=== PATIENT | female | born 1940 | race Caucasian/White ===

== ENCOUNTER 2017-09-29 17:42 | Observation (INO) | payer OTHER ==
--- NOTE | 2017-09-29 18:49 | PDOC ---
Rapid Medical Evaluation Time Seen by Provider: 09/29/17 18:46 Medical Evaluation: Allergies Allergy/AdvReac Type Severity Reaction Status Date / Time cephalexin Allergy Severe Difficulty Verified 06/12/16 14:10 Breathing 09/29/17 18:46 I have performed a brief in-person evaluation of this patient. The patient presents with a chief complaint of: sent by PCP, fever, chills, "whole body feels bad", nausea, anorexia since yesterday afternoon, hasn't taken any meds since then, per PCP O2 sat is low , temp 101 at urgent care Pertinent physical exam findings: weak appearing I have ordered the following: sepsis workup The patient will proceed to the ED for further evaluation. Discharge Disposition - Diagnosis Fever - Referrals - Patient Instructions - Post Discharge Activity
[2017-09-29 18:54] VITALS: BMI 25.7
[2017-09-29 22:06] LABS: BASO % 0.3 % (0-2.0); HEMATOCRIT 39.5 % (32.4-45.2); LYMPH % 8.6 % (8-40); MCH 30.8 pg (25.7-33.7); MEAN CELL VOLUME 93.3 fl (80-96); MEAN PLT VOLUME 8.7 fl (7.5-11.1); MONO % 6.2 % (3.8-10.2); NEUT % 84.9 % (42.8-82.8); PLATELET COUNT 189 K/MM3 (134-434); RBC 4.23 M/mm3 (3.60-5.2); RDW 14.6 % (11.6-15.6); WHITE BLOOD COUNT 14.4 K/mm3 (4.0-10.0)
[2017-09-29 22:08] LABS: VENOUS PC02 47.7 mmHg (38-52); VENOUS PH 7.43 (7.32-7.42)
[2017-09-29] MEDS ORDERED: SODIUM CHLORIDE 1,000 ML IV STA (22:35)
--- NOTE | 2017-09-29 22:35 | PDOC ---
History of Present Illness - History of Present Illness Initial Comments: 09/29/17 22:46 The patient is a 77 year old female, with a significant past medical history of liver cirrhosis and hypertension, who presents to the emergency department with subjective fever, chills, rhinorrhea, decreased appetite, and generalized malaise since 5:30 PM yesterday. The patient states she went to her PCP today where she was found to have low oxygen levels and was referred to the ED. She states she has not been able to take her medications since the onset of her symptoms. She denies sick contacts. The patient denies chest pain, shortness of breath, headache and dizziness. The patient denies abdominal pain, nausea, vomit, diarrhea and constipation. The patient denies dysuria, frequency, urgency and hematuria. Allergies: cephalexin Past surgical history: cataract surgery, inguinal hernia repair PCP: <Tonia Camacho - Last Filed: 09/30/17 01:19> - General History Source: Patient, Family (son) <Blanco Zabala - Last Filed: 09/30/17 19:13> - General Chief Complaint: Nausea/Vomiting Stated Complaint: PCP SENT Time Seen by Provider: 09/29/17 18:46 Past History <Tonia Camacho - Last Filed: 09/30/17 01:19> - Past Medical History HTN: Yes - Surgical History Abdominal Surgery: Yes (HERNIA) GI Surgery: Yes (LIVER BIOPSY) - Suicide/Smoking/Psychosocial Hx Smoking History: Never smoked Have you smoked in the past 12 months: No Information on smoking cessation initiated: No Hx Alcohol Use: No Drug/Substance Use Hx: No Hx Substance Use Treatment: No <Blanco Zabala - Last Filed: 09/30/17 19:13> - Past Medical History Allergies/Adverse Reactions: Allergies Allergy/AdvReac Type Severity Reaction Status Date / Time cephalexin Allergy Severe Difficulty Verified 09/29/17 18:47 Breathing Home Medications: Ambulatory Orders Losartan/Hydrochlorothiazide [Losartan-Hctz 100-25 mg Tab] 100 each PO DAILY Metoprolol Tartrate 50 mg PO DAILY 09/30/17 Ursodiol [Actigal] 900 mg PO DAILY 09/30/17 Review of Systems - Review of Systems Able to Perform ROS?: Yes Comments:: 09/29/17 22:46 CONSTITUTIONAL: (+) fever, chills,malaise, loss of appetite Absent: diaphoresis, generalized weakness, HEENT: (+) rhinorrhea, Absent: nasal congestion, throat pain, throat swelling, difficulty swallowing, mouth swelling, ear pain, eye pain, visual Changes CARDIOVASCULAR: Absent: chest pain, syncope, palpitations, irregular heart rate, lightheadedness , peripheral edema RESPIRATORY: Absent: cough, shortness of breath, dyspnea with exertion, orthopnea, wheezing, stridor, hemoptysis GASTROINTESTINAL: Absent: abdominal pain, abdominal distension, nausea, vomiting, diarrhea, constipation, melena, hematochezia GENITOURINARY: Absent: dysuria, frequency, urgency, hesitancy, hematuria, flank pain, genital pain MUSCULOSKELETAL: Absent: myalgia, arthralgia, joint swelling SKIN: Absent: rash, itching, pallor HEMATOLOGIC/IMMUNOLOGIC: Absent: easy bleeding, easy bruising, lymphadenopathy, frequent infections ENDOCRINE: Absent: unexplained weight gain, unexplained weight loss, heat intolerance, cold intolerance NEUROLOGIC: Absent: headache, focal weakness or paresthesias, dizziness, unsteady gait, seizure, mental status changes, bladder or bowel incontinence PSYCHIATRIC: Absent: anxiety, depression, suicidal or homicidal ideation, hallucinations. <Tonia Camacho - Last Filed: 09/30/17 01:19> *Physical Exam - Vital Signs Last Vital Signs Temp Pulse Resp BP Pulse Ox 99.4 F 97 H 22 119/67 93 L 09/29/17 18:49 09/29/17 18:49 09/29/17 18:49 09/29/17 18:49 09/29/17 18:49 - Physical Exam Comments: 09/29/17 22:47 GENERAL: (+) diaphoretic. in moderate distress. Well developed, well nourished. Awake and alert. HEENT: (+) dry oral mucosa. Normocephalic, atraumatic. PERRLA, EOMI. No conjunctival pallor. Sclera are non-icteric. Oropharynx is clear. NECK: Supple. Full ROM. No JVD. Carotid pulses 2+ and symmetric, without bruits. No thyromegaly. No lymphadenopathy. CARDIOVASCULAR: (+) tachycardic rate with normal rhythm. No murmurs, rubs, or gallops. Distal pulses are 2+ and symmetric. PULMONARY: (+) Decreased breath sounds bilaterally especially at bilateral bases. No evidence of respiratory distress. No wheezing, rales or rhonchi. ABDOMINAL: Soft. Non-tender. Non-distended. No rebound or guarding. No organomegaly. Normoactive bowel sounds. MUSCULOSKELETAL Normal range of motion at all joints. No bony deformities or tenderness. No CVA tenderness. EXTREMITIES: No cyanosis. No clubbing. No edema. No calf tenderness. SKIN: Warm and dry. Normal capillary refill. No rashes. No jaundice. NEUROLOGICAL: Alert, awake, appropriate. Cranial nerves 2-12 intact. Normoreflexic in the upper and lower extremities. Normal speech. Toes are down-going bilaterally. Gait is normal without ataxia. PSYCHIATRIC: Cooperative. Good eye contact. Appropriate mood and affect. <Tonia Camacho - Last Filed: 09/30/17 01:19> - Vital Signs Last Vital Signs Temp Pulse Resp BP Pulse Ox 99.4 F 97 H 22 119/67 93 L 09/29/17 18:49 09/29/17 18:49 09/29/17 18:49 09/29/17 18:49 09/29/17 18:49 <Blanco Zabala - Last Filed: 09/30/17 19:13> Heart Score/ECG Review - [place] Comment: 09/30/17 01:19 EKG was read by Dr. Zabala at 00:28 Impression: Sinus tachycardia. Possible left atrial enlargement. Left ventricular hypertrophy Vent. Rate: 117 bpm MT Interval 136 ms QTc: 451 ms <Tonia Camacho - Last Filed: 09/30/17 01:19> ED Treatment Course - LABORATORY CBC & Chemistry Diagram: 09/29/17 21:54 09/29/17 21:54 - ADDITIONAL ORDERS Additional order review: Laboratory Results 09/29/17 09/29/17 21:54 21:54 PT with INR 13.10 H INR 1.16 H PTT (Actin FS) 29.5 VBG pH 7.43 H POC VBG pCO2 47.7 POC VBG pO2 34.0 Mixed VBG HCO3 31.4 H 09/29/17 21:54 RBC 4.23 MCV 93.3 MCHC 33.0 RDW 14.6 MPV 8.7 D Neutrophils % 84.9 H D Lymphocytes % 8.6 D Monocytes % 6.2 Eosinophils % 0.0 D Basophils % 0.3 <Tonia Camacho - Last Filed: 09/30/17 01:19> - LABORATORY CBC & Chemistry Diagram: 09/30/17 07:45 09/30/17 07:45 - ADDITIONAL ORDERS Additional order review: Laboratory Results 09/29/17 21:54 VBG pH 7.43 H POC VBG pCO2 47.7 POC VBG pO2 34.0 Mixed VBG HCO3 31.4 H 09/29/17 21:54 RBC 4.23 MCV 93.3 MCHC 33.0 RDW 14.6 MPV 8.7 D Neutrophils % 84.9 H D Lymphocytes % 8.6 D Monocytes % 6.2 Eosinophils % 0.0 D Basophils % 0.3 <Blanco Zabala - Last Filed: 09/30/17 19:13> Medical Decision Making - Medical Decision Making 09/30/17 19:12 Dr. Zabala: The scribe's documentation has been prepared under my direction and personally reviewed by me in its entirery. I confirm that the note above accurately reflects all work, treatment, procedures, and medical decision making performed by me. Pt treated for UIT and dehydration. Given Abx and awaiting bed <Blanco Zabala - Last Filed: 09/30/17 19:13> *DC/Admit/Observation/Transfer - Attestations Scribe Attestion: 09/29/17 22:49 Documentation prepared by Tonia Camacho, acting as biomedical manager for Blanco Zabala DO. <Tonia Camacho - Last Filed: 09/30/17 01:19> - Discharge Dispostion Admit: Yes <Blanco Zabala - Last Filed: 09/30/17 19:13> Diagnosis at time of Disposition: Fever, UTI (urinary tract infection), Influenza, Dehydration - Discharge Dispostion Condition at time of disposition: Stable
[2017-09-29] MEDS ORDERED: OSELTAMIVIR PHOSPHATE 75 MG CAPSULE PO ONE (22:36)
[2017-09-29 22:39] LABS: INR 1.16 (0.82-1.09); PROTHROMBIN TIME (PATIENT) 13.1 SEC (9.98-11.88)
[2017-09-29 22:41] LABS: ALBUMIN 3.1 g/dl (3.4-5.0); ANION GAP 8 (8-16); BILIRUBIN,TOTAL 0.7 mg/dL (0.2-1.0); BLOOD UREA NITROGEN 33 mg/dL (7-18); CALCIUM 8.8 mg/dL (8.5-10.1); CHLORIDE 92 mmol/L (98-107); CO2 32 mmol/L (21-32); CREATININE 0.9 mg/dL (0.55-1.02); GLUCOSE,RANDOM 107 mg/dL (74-106); POTASSIUM 3.1 mmol/L (3.5-5.1); SGOT/AST 19 U/L (15-37); SGPT/ALT 17 U/L (12-78); SODIUM 132 mmol/L (136-145); TOT PROT 7.5 g/dl (6.4-8.2)
[2017-09-29 22:42] LABS: ACTIVATED PTT 29.5 SECONDS (26.9-34.4)
[2017-09-29 22:44] LABS: ALK PHOS 100 U/L (45-117)
[2017-09-29] MEDS ORDERED: OSELTAMIVIR PHOSPHATE 75 MG CAPSULE ONE (23:21)
[2017-09-30] MEDS ORDERED: POTASSIUM CHLORIDE TABS 20 MEQ TABLET.ER (FP) PO ONE ×2 (00:26→00:33)
[2017-09-30] MEDS ORDERED: SODIUM CHLORIDE 1,000 ML IV STA (00:26)
[2017-09-30] MEDS ORDERED: URSODIOL 300 MG CAPSULE PO ONE (00:35)
[2017-09-30] MEDS ORDERED: ACETAMINOPHEN 1000 MG/100 ML VIAL (NON FORMULARY) IVPB ONE (03:46)
[2017-09-30] MEDS ORDERED: ACETAMINOPHEN INJECTION 100 ML IVPB ONE (03:47)
[2017-09-30 04:25] LABS: URINE APPEARANCE CLOUDY; URINE BILIRUBIN NEGATIVE (NEGATIVE); URINE BLOOD 2+ (NEGATIVE); URINE COLOR YELLOW; URINE GLUCOSE (UA) NEGATIVE (NEGATIVE); URINE KETONE 1+ (NEGATIVE); URINE NITRITE NEGATIVE (NEGATIVE); URINE UROBILINOGEN NEGATIVE mg/dL (0.2-1.0)
[2017-09-30 04:32] LABS: URINE LEUK ESTERASE 3+ (NEGATIVE); URINE PROTEIN 1+ (NEGATIVE)
[2017-09-30 04:36] LABS: EPI CELLS MODERATE /HPF (FEW); URINE BACTERIA FEW /hpf (NONE SEEN); URINE MUCUS RARE
--- NOTE | 2017-09-30 05:17 | HP ---
CHIEF COMPLAINT: fever, malaise PCP: Gisella HISTORY OF PRESENT ILLNESS: This is a 77 year old female with past medical history of osteoporosis, primary biliary cirrhosis, chronic leg ulcers presented to the ED with a complaint of fever, chills, rhinorrhea, decreased appetite, nausea and general malaise since Wednesday afternoon. She denies SOB, cough, chest pain. son reports pt's pulse ox was low in PMD office ER course was notable for: (1) WBC 14.4; lactic acid 1, repeat 2 (2) Potassium 3.1 (3) Sodium 132 Recent Travel: pt denies PAST MEDICAL HISTORY: osteoporosis, primary biliary cirrhosis, chronic leg ulcers PAST SURGICAL HISTORY: B/L cataract B/L inguinal hernia repair Social History: Smoking: pt denies Alcohol: pt denies Drugs: pt denies Family History: unknown Allergies cephalexin Allergy (Severe, Verified 09/29/17 18:47) Difficulty Breathing HOME MEDICATIONS: 3 Medication Instructions Recorded Losartan/Hydrochlorothiazide 100 each PO DAILY 09/30/17 [Losartan-Hctz 100-25 mg Tab] Metoprolol Tartrate 50 mg PO DAILY 09/30/17 Ursodiol [Actigal] 900 mg PO DAILY 09/30/17 REVIEW OF SYSTEMS CONSTITUTIONAL: Present: fever, chills, generalized weakness, malaise, loss of appetite Absent: diaphoresis, weight change HEENT: Present: rhinorrhea Absent: nasal congestion, throat pain, throat swelling, difficulty swallowing, mouth swelling, ear pain, eye pain, visual changes CARDIOVASCULAR: Absent: chest pain, syncope, palpitations, irregular heart rate, lightheadedness , peripheral edema RESPIRATORY: Absent: cough, shortness of breath, dyspnea with exertion, orthopnea, wheezing, stridor, hemoptysis GASTROINTESTINAL: Absent: abdominal pain, abdominal distension, nausea, vomiting, diarrhea, constipation, melena, hematochezia GENITOURINARY: Absent: dysuria, frequency, urgency, hesitancy, hematuria, flank pain, genital pain MUSCULOSKELETAL: Absent: myalgia, arthralgia, joint swelling, back pain, neck pain SKIN: Absent: rash, itching, pallor HEMATOLOGIC/IMMUNOLOGIC: Absent: easy bleeding, easy bruising, lymphadenopathy, frequent infections ENDOCRINE: Absent: unexplained weight gain, unexplained weight loss, heat intolerance, cold intolerance NEUROLOGIC: Absent: headache, focal weakness or paresthesias, dizziness, unsteady gait, seizure, mental status changes, bladder or bowel incontinence PSYCHIATRIC: Absent: anxiety, depression, suicidal or homicidal ideation, hallucinations. PHYSICAL EXAMINATION Vital Signs - 24 hr 3 09/29/17 09/30/17 18:49 03:42 Temperature 99.4 F 103.2 F H Pulse Rate 97 H Respiratory 22 Rate Blood Pressure 119/67 O2 Sat by Pulse 93 L Oximetry (%) GENERAL: Awake, alert, and fully oriented, in no acute distress. HEAD: Normal with no signs of trauma. EYES: Pupils equal, round and reactive to light, extraocular movements intact, sclera anicteric, conjunctiva clear. No lid lag. EARS, NOSE, THROAT: Ears normal, nares patent, oropharynx clear without exudates. Moist mucous membranes. NECK: Normal range of motion, supple without lymphadenopathy, JVD, or masses. LUNGS: Breath sounds equal, coarse breath sounds bilaterally. No wheezes, and no crackles. No accessory muscle use. HEART: Regular rate and rhythm, normal S1 and S2 without murmur, rub or gallop. ABDOMEN: Soft, nontender, not distended, normoactive bowel sounds, no guarding, no rebound, no masses. No hepatomegaly or splenomegaly. MUSCULOSKELETAL: Normal range of motion at all joints. No bony deformities or tenderness. No CVA tenderness. UPPER EXTREMITIES: 2+ pulses, warm, well-perfused. No cyanosis. No clubbing. No peripheral edema. LOWER EXTREMITIES: 2+ pulses, warm, well-perfused. No calf tenderness. Tr peripheral edema RLL, + erythema and chronic vascular changes, no excessive warmth NEUROLOGICAL: Cranial nerves II-XII intact. Normal speech. Normal gait. PSYCHIATRIC: Cooperative. Good eye contact. Appropriate mood and affect. SKIN: Warm, dry, normal turgor, no rashes or lesions noted, normal capillary refill. wound LL west, red scaly skin with scattered open areas, no discharge, Laboratory Results - last 24 hr 3 09/29/17 09/29/17 09/29/17 21:46 21:54 21:54 WBC 14.4 H D RBC 4.23 Hgb 13.0 D Hct 39.5 D MCV 93.3 MCH 30.8 MCHC 33.0 RDW 14.6 Plt Count 189 MPV 8.7 D Neutrophils % 84.9 H D Lymphocytes % 8.6 D Monocytes % 6.2 Eosinophils % 0.0 D Basophils % 0.3 PT with INR 13.10 H INR 1.16 H PTT (Actin FS) 29.5 VBG pH POC VBG pCO2 POC VBG pO2 Mixed VBG HCO3 Sodium Potassium Chloride Carbon Dioxide Anion Gap BUN Creatinine Creat Clearance w eGFR Random Glucose Lactic Acid 1.0 Calcium Total Bilirubin AST ALT Alkaline Phosphatase Creatine Kinase Troponin I Total Protein Albumin Urine Color Urine Appearance Urine pH Ur Specific [place] Urine Protein Urine Glucose (UA) Urine Ketones Urine Blood Urine Nitrite Urine Bilirubin Urine Urobilinogen Ur Leukocyte Esterase Urine WBC (Auto) Urine RBC (Auto) Ur Epithelial Cells Urine Bacteria Urine Mucus Blood Type Antibody Screen 3 09/29/17 09/29/17 09/29/17 21:54 21:54 21:54 WBC RBC Hgb Hct MCV MCH MCHC RDW Plt Count MPV Neutrophils % Lymphocytes % Monocytes % Eosinophils % Basophils % PT with INR INR PTT (Actin FS) VBG pH 7.43 H POC VBG pCO2 47.7 POC VBG pO2 34.0 Mixed VBG HCO3 31.4 H Sodium 132 L Potassium 3.1 L Chloride 92 L Carbon Dioxide 32 Anion Gap 8 BUN 33 H Creatinine 0.9 Creat Clearance w eGFR > 60 Random Glucose 107 H Lactic Acid 2.0 Calcium 8.8 Total Bilirubin 0.7 D AST 19 ALT 17 Alkaline Phosphatase 100 Creatine Kinase 54 Troponin I < 0.02 Total Protein 7.5 Albumin 3.1 L Urine Color Urine Appearance Urine pH Ur Specific [place] Urine Protein Urine Glucose (UA) Urine Ketones Urine Blood Urine Nitrite Urine Bilirubin Urine Urobilinogen Ur Leukocyte Esterase Urine WBC (Auto) Urine RBC (Auto) Ur Epithelial Cells Urine Bacteria Urine Mucus Blood Type O POSITIVE Antibody Screen Negative 3 Urine Color Yellow 09/30/17 04:00 Urine Appearance Cloudy 09/30/17 04:00 Urine pH 6.0 (5.0-8.0) 09/30/17 04:00 Ur Specific [place] 1.018 (1.001-1.035) 09/30/17 04:00 Urine Protein 1+ (NEGATIVE) H 09/30/17 04:00 Urine Glucose (UA) Negative (NEGATIVE) 09/30/17 04:00 Urine Ketones 1+ (NEGATIVE) H 09/30/17 04:00 Urine Blood 2+ (NEGATIVE) H 09/30/17 04:00 Urine Nitrite Negative (NEGATIVE) 09/30/17 04:00 Urine Bilirubin Negative (NEGATIVE) 09/30/17 04:00 Ur Leukocyte Esterase 3+ (NEGATIVE) H 09/30/17 04:00 Urine WBC (Auto) 162 09/30/17 04:00 Urine RBC (Auto) 23 09/30/17 04:00 Ur Epithelial Cells Moderate /HPF (FEW) 09/30/17 04:00 Urine Bacteria Few /hpf (NONE SEEN) 09/30/17 04:00 Urine Mucus Rare 09/30/17 04:00 Radiology reports CXR official read pending but no obvious findings ECG sinus tachycardia vent rate 117, QTC 451 possible left atrial enlargement LVH ASSESSMENT/PLAN: 77yF with PMH osteoporosis, primary biliary cirrhosis, chronic leg ulcers presented to the ED with fever, chills, malaise. Sepsis secondary to UTI - as evidenced by fever 103.2, HR 117, ua c/w UTI - cont levaquin daily given cephalosporin allergy - NS @ 100cc/hr, monitor volume status, pt has h/o edema B/L LE - labs in am hypokalemia - repleted with 40mEq po - repeat K with am labs today, check mag chronic wound LLE - DPD for now, son unsure of cream used on wound, will need to f/u with wound care. primary biliary cirrhosis - cont ursodiol HTN - cont home meds DVT PPX - heparin 5000u BID FEN - NS @ 100cc/hr - BMP this am - low sodium diet as tolerated Dispo: Pt currently requires inpatient management of her emergent medical condition. Visit type - Emergency Visit Emergency Visit: Yes ED Registration Date: 09/29/17 Care time: The patient presented to the Emergency Department on the above date and was hospitalized for further evaluation of their emergent condition. - New Patient This patient is new to me today: Yes Date on this admission: 09/30/17 - Critical Care Critical Care patient: No
[2017-09-30] MEDS: SODIUM CHLORIDE 1,000 ML IV SCH ×2 (05:37→16:45)
[2017-09-30 08:28] LABS: HEMATOCRIT 37.6 % (32.4-45.2); HEMOGLOBIN 12.2 GM/dL (10.7-15.3); MCH 30.3 pg (25.7-33.7); MCHC 32.4 g/dl (32.0-36.0); MEAN CELL VOLUME 93.4 fl (80-96); MEAN PLT VOLUME 8.8 fl (7.5-11.1); PLATELET COUNT 162 K/MM3 (134-434); RBC 4.03 M/mm3 (3.60-5.2); RDW 14.4 % (11.6-15.6); WHITE BLOOD COUNT 16.7 K/mm3 (4.0-10.0)
[2017-09-30 08:48] LABS: CHLORIDE 100 mmol/L (98-107); POTASSIUM 3.3 mmol/L (3.5-5.1); SODIUM 135 mmol/L (136-145)
[2017-09-30 08:52] LABS: ANION GAP 9 (8-16); BLOOD UREA NITROGEN 26 mg/dL (7-18); CALCIUM 7.7 mg/dL (8.5-10.1); CO2 26 mmol/L (21-32); CREATININE 0.8 mg/dL (0.55-1.02); GLUCOSE,RANDOM 115 mg/dL (74-106); MAGNESIUM 1.5 mg/dL (1.8-2.4); PHOSPHOROUS 2.8 mg/dL (2.5-4.9)
[2017-09-30 11:24] LABS: ANISOCYTOSIS 0; MACROCYTOSIS 1+
[2017-09-30 11:32] LABS: PLATELET ESTIMATE ADEQUATE
--- NOTE | 2017-09-30 11:48 | EKG ---
Test Reason : Blood Pressure : / mmHG Vent. Rate : 117 BPM Atrial Rate : 117 BPM P-R Int : 136 ms QRS Dur : 074 ms QT Int : 324 ms P-R-T Axes : 041 -10 024 degrees QTc Int : 451 ms POOR DATA QUALITY, INTERPRETATION MAY BE ADVERSELY AFFECTED SINUS TACHYCARDIA POSSIBLE LEFT ATRIAL ENLARGEMENT LEFT VENTRICULAR HYPERTROPHY ABNORMAL ECG WHEN COMPARED WITH ECG OF 24-MAY-2016 09:53, NO SIGNIFICANT CHANGE WAS FOUND Confirmed by MARVA FIGUEROA, MANA ([id number]) on 09/30/2017 11:48:16 AM Referred By: Confirmed By:MANA DURHAM MD
[2017-09-30] MEDS: HEPARIN NA (PORCINE) 5,000 UNITS/ML 1ML VIAL SQ SCH ×2 (12:01→23:10)
[2017-09-30] MEDS ORDERED: ACETAMINOPHEN 325 MG TABLET (FP) PO PRN (19:08)
[2017-09-30] MEDS ORDERED: ACETAMINOPHEN 325 MG TABLET (FP) ONE (19:21)
[2017-09-30] MEDS ORDERED: HEPARIN NA (PORCINE) 5,000 UNITS/ML 1ML VIAL ONE (22:50)
[2017-10-01] MEDS ORDERED: POTASSIUM CHLORIDE TABS 20 MEQ TABLET.ER (FP) PO ONE (01:20)
[2017-10-01 01:55] VITALS: BP 121/75; PULSE 93; TEMP 98.1
--- NOTE | 2017-10-01 06:45 | HOSP ---
Subjective - Review of Symptoms Subjective: Notified by RN that pt wanted to sign out AMA. Counseled on risks and benefits of staying. risks included worsening infection that can lead to organ shut down and . pt accompanied by son, both verbalized understanding of risks and desire to sign out AMA. encouraged pt to call PMD office and follow up. Physical Examination Vital Signs: Vital Signs Temperature 98.1 F 10/01/17 01:52 Pulse Rate 93 H 10/01/17 01:52 Respiratory Rate 18 10/01/17 01:52 Blood Pressure 121/75 10/01/17 01:52 O2 Sat by Pulse Oximetry (%) 98 10/01/17 01:52 Labs: CBC, BMP 09/30/17 07:45 09/30/17 07:45
== END 2017-10-01 01:00 | disposition left against medical advice (07) ==
LOC: JER 17:42 → JERBED 09-30 04:46 → UNDOADMOB 09-30 06:02 → JERBED 09-30 06:02
PROVIDERS: ADMIT Internal Medicine; ATTEND Internal Medicine
PROC: 3E03329 Introduction of Other Anti-infective into Peripheral Vein, Percutaneous Approach (ICD-10-PCS; principal; 2017-09-30)
PROC: 3E033GC Introduction of Other Therapeutic Substance into Peripheral Vein, Percutaneous Approach (ICD-10-PCS; 2017-09-30)
PROC: 3E0337Z Introduction of Electrolytic and Water Balance Substance into Peripheral Vein, Percutaneous Approach (ICD-10-PCS; 2017-09-30)
PROC: 3E013GC Introduction of Other Therapeutic Substance into Subcutaneous Tissue, Percutaneous Approach (ICD-10-PCS; 2017-09-30)
DX: J11.1 Influenza due to unidentified influenza virus with other respiratory manifestations (principal); N39.0 Urinary tract infection, site not specified; E86.0 Dehydration; I10 Essential (primary) hypertension; M81.0 Age-related osteoporosis without current pathological fracture; K74.60 Unspecified cirrhosis of liver; Z88.1 Allergy status to other antibiotic agents; L97.909 Non-pressure chronic ulcer of unspecified part of unspecified lower leg with unspecified severity; A41.9 Sepsis, unspecified organism; E87.6 Hypokalemia
CPT/HCPCS: 36415; 71045-TC-FY; 80048; 80053; 81003; 81015; 82550; 82803; 83605; 83735; 84100; 84484; 85025; 85610; 85730; 86850; 86900; 86901; 87040; 87086; 87186; 93005; 93010; 96361; 96365; 96372; 96374; 99285-25; G0378; J1644

== ENCOUNTER 2017-11-07 16:24 | Inpatient (IN) | payer OTHER ==
[2017-11-07] MEDS ORDERED: SODIUM CHLORIDE 1,000 ML IV STA (16:31)
[2017-11-07] MEDS ORDERED: ACETAMINOPHEN 1000 MG/100 ML VIAL (NON FORMULARY) IVPB ONE (16:31)
--- NOTE | 2017-11-07 16:31 | PDOC ---
History of Present Illness - General Chief Complaint: SIRS, Suspected/Possible Stated Complaint: FEVER, VOMITING Time Seen by Provider: 11/07/17 16:27 - History of Present Illness Initial Comments: 11/07/17 16:54 The patient is a 77 year old female with a history of HTN, HLD who presents for evaluation of vomiting, fevers, and lower extremity ulcers. The patient is accompanied by family who assist in providing the history. They note that the patient has been feeling "under the weather" for the last few days prompting her presentation to an urgent care earlier today. She was noted to be febrile and was sent to the ED for concerns for sepsis. The patient had a recent admission 1 month ago for UTI but left AMA after treatment. She also notes bilateral lower extremity ulcers for which she was initially being evaluated in wound care, but has not followed up recently and they have noted worsening in the lower extremity wounds over the past few days. They endorse fevers and chills today as well as 2 episodes of non-bilious, non-bloody vomiting. She otherwise denies SOB, cough, chest pain, abdominal pain, or changes with urination or bowel movements. Past History - Past Medical History Allergies/Adverse Reactions: Allergies Allergy/AdvReac Type Severity Reaction Status Date / Time cephalexin Allergy Severe Difficulty Verified 11/07/17 16:26 Breathing Home Medications: Ambulatory Orders Losartan/Hydrochlorothiazide [Losartan-Hctz 100-25 mg Tab] 100 each PO DAILY Metoprolol Tartrate 50 mg PO DAILY 09/30/17 Ursodiol [Actigal] 900 mg PO DAILY 09/30/17 COPD: No HTN: Yes - Surgical History Abdominal Surgery: Yes (HERNIA) GI Surgery: Yes (LIVER BIOPSY) - Immunization History Immunization Up to Date: Yes - Suicide/Smoking/Psychosocial Hx Smoking History: Never smoked Have you smoked in the past 12 months: No Information on smoking cessation initiated: No Hx Alcohol Use: No Drug/Substance Use Hx: No Substance Use Type: None Hx Substance Use Treatment: No Review of Systems - Review of Systems Comments:: 11/07/17 16:59 Constitutional: Fevers, Chills. No fatigue, malaise HEENT: No Rhinorrhea, nasal congestion, visual changes Cardiovascular: No chest pain, syncope, palpitations, lightheadedness Respiratory: No Cough, SOB, Hemoptysis, Gastrointestinal: Nausea, Vomiting. No Abdominal pain, Constipation, Diarrhea, Melena Genitourinary: No Dysuria, Frequency, Urgency, Hesitancy, Hematuria, Flank pain Musculoskeletal: No Myalgia, arthralgia Skin: Lower Extremity Ulcers. No rashes, itching, bruising, pallor Neurologic: No Headache, Dizziness, Numbness, Weakness, or Tingling Psychiatric: No Hallucinations. No SI or HI *Physical Exam - Vital Signs Last Vital Signs Temp Pulse Resp BP Pulse Ox 102.5 F H 116 H 20 148/77 92 L 11/07/17 16:27 11/07/17 16:27 11/07/17 16:27 11/07/17 16:27 11/07/17 16:27 - Physical Exam Comments: 11/07/17 16:59 General Appearance: Nourished. No Apparent Distress HEENT: EOMI, YOLANDA. No Pharyngeal Erythema, Tonsillar Exudate, Tonsillar Erythema Neck: No Cervical Lymphadenopathy Respiratory/Chest: Lungs Clear, Normal Breath Sounds. No Crackles, Rales, Rhonchi, Wheezing Cardiovascular: Regular Rhythm, Tachycardic Rate. No Murmur, Gallops, Rubs Gastrointestinal/Abdominal: Normal Bowel Sounds, Soft. No Guarding, Rebound, Tenderness Musculoskeletal: No CVA Tenderness Extremity: Bilateral lower extremity ulcers worse on the left with surrounding erythema and warmth. Normal Capillary Refill Integumentary: Normal Color, Dry, Warm Neurologic: Fully Oriented, Alert, Normal Mood/Affect, Normal Response, ED Treatment Course - LABORATORY CBC & Chemistry Diagram: 11/07/17 16:43 11/07/17 17:30 - RADIOLOGY Radiology Studies Ordered: Category Date Time Status CHEST X-RAY PORTABLE* [RAD] Stat Radiology 11/07/17 16:30 Ordered Medical Decision Making - Medical Decision Making 11/07/17 17:01 The patient is a 77 year old female with a history of HTN, HLD who presents for evaluation of vomiting, fevers, and lower extremity ulcers. Differential includes but is not limited to: Sepsis, Cellulitis, UTI, Pneumonia, infectious, metabolic derangement. Given the patient's history and physical exam, we will obtain a cbc, cmp, lactate, vbg, blood cultures, ua, urine cultures, troponin, ekg, chest plain film to evaluate further for possible etiologies. We will treat with iv fluids, iv tylenol, vanc, and zosyn in the meantime. The patient will likely require admission for further management of her condition. We will continue to monitor and reassess. 11/07/17 21:03 CBC demonstrates an elevated wbc to 22. CMP, troponin, lactate are unremarkable. The patient symptoms are likely due to a cellulitis of the patient's left lower extremity and sepsis. We discussed the case with the hospitalist team who accepted the patient for admission. *DC/Admit/Observation/Transfer Diagnosis at time of Disposition: Sepsis Qualifiers: Sepsis type: sepsis due to unspecified organism Qualified Code(s): A41.9 - Sepsis, unspecified organism Cellulitis Qualifiers: Site of cellulitis: extremity Site of cellulitis of extremity: lower extremity Laterality: left Qualified Code(s): L03.116 - Cellulitis of left lower limb - Discharge Dispostion Condition at time of disposition: Stable Admit: Yes - Referrals - Patient Instructions - Post Discharge Activity
[2017-11-07] MEDS ORDERED: ACETAMINOPHEN INJECTION 100 ML IVPB ONE (16:40)
[2017-11-07] MEDS ORDERED: VANCOMYCIN 1,250 MG in DEXTROSE 5%-WATER - 250 ML IVPB ONE (16:49)
[2017-11-07] MEDS ORDERED: PIPERACILLIN/TAZOB 3.375 GM 50 ML IVPB ONE (16:49)
--- NOTE | 2017-11-07 16:49 | PDOC ---
Attending Attestation - Resident Resident Name: Gabriel Chaudhry - ED Attending Attestation I have performed the following: I have examined & evaluated the patient, The case was reviewed & discussed with the resident, I agree w/resident's findings & plan, Exceptions are as noted - HPI HPI: 11/07/17 16:48 77 yo female p/w fever and b/l LE ulcers and erythema, concern for cellulitis and/or urosepsis - Physicial Exam PE: 11/07/17 21:03 77 yo female p/w fever and wounds on her legs with erythema head -ncat neck -supple throat -no erythema lungs -cta b.l cvs- [id number] abd -protuberant ,no guarding,no rebound extremities right toes were and left west have + cellulitis neuro alert and conversant skin dry mucus memebranes psych appropriate - Medical Decision Making 11/07/17 16:49 77 yo female with history of PVD p/w fever and has cellulitis of her toes and west,admitted for ABX 11/07/17 21:08
[2017-11-07 16:57] LABS: HEMATOCRIT 39.4 % (32.4-45.2); HEMOGLOBIN 13.2 GM/dL (10.7-15.3); MCH 31.5 pg (25.7-33.7); MCHC 33.6 g/dl (32.0-36.0); MEAN CELL VOLUME 93.7 fl (80-96); MEAN PLT VOLUME 8.9 fl (7.5-11.1); PLATELET COUNT 230 K/MM3 (134-434); RDW 14.9 % (11.6-15.6); WHITE BLOOD COUNT 22.6 K/mm3 (4.0-10.0)
[2017-11-07] MEDS ORDERED: PIPERACILLIN/TAZOB 3.375 GM 3.375 GM/50 ML BAG IVPB ONE (17:09)
[2017-11-07 17:12] LABS: INR 1.03 (0.82-1.09); PROTHROMBIN TIME (PATIENT) 11.6 SEC (9.98-11.88)
[2017-11-07 17:15] LABS: ACTIVATED PTT 22.5 SECONDS (26.9-34.4)
[2017-11-07 18:01] LABS: ALBUMIN 2.8 g/dl (3.4-5.0); ANION GAP 12 (8-16); BILIRUBIN,TOTAL 0.7 mg/dL (0.2-1.0); BLOOD UREA NITROGEN 24 mg/dL (7-18); CALCIUM 8.2 mg/dL (8.5-10.1); CHLORIDE 98 mmol/L (98-107); CO2 26 mmol/L (21-32); CREATININE 0.8 mg/dL (0.55-1.02); GLUCOSE,RANDOM 124 mg/dL (74-106); SGPT/ALT 26 U/L (12-78); SODIUM 136 mmol/L (136-145); TOT PROT 7.1 g/dl (6.4-8.2)
[2017-11-07 18:02] LABS: ALK PHOS 89 U/L (45-117)
[2017-11-07 18:03] LABS: POTASSIUM 3.7 mmol/L (3.5-5.1); SGOT/AST 46 U/L (15-37)
[2017-11-07 18:09] LABS: PLATELET ESTIMATE ADEQUATE
[2017-11-07 18:46] LABS: VENOUS PH 7.44 (7.32-7.42)
[2017-11-07 19:24] LABS: URINE APPEARANCE CLOUDY; URINE BILIRUBIN NEGATIVE (<2.0 mg/dL); URINE BLOOD 2+ (NEGATIVE); URINE COLOR YELLOW; URINE GLUCOSE (UA) NEGATIVE (NEGATIVE); URINE KETONE NEGATIVE (NEGATIVE); URINE NITRITE NEGATIVE (NEGATIVE); URINE PROTEIN NEGATIVE (NEGATIVE); URINE UROBILINOGEN NEGATIVE mg/dL (0.2-1.0)
[2017-11-07 19:25] LABS: URINE LEUK ESTERASE 2+ (NEGATIVE)
[2017-11-07 19:42] LABS: EPI CELLS MANY /HPF (FEW); URINE MUCUS RARE
[2017-11-07] MEDS ORDERED: SODIUM CHLORIDE 1,000 ML IV SCH (20:15)
--- NOTE | 2017-11-07 20:37 | HP ---
CHIEF COMPLAINT: fever PCP: Gisella HISTORY OF PRESENT ILLNESS: This is a 77 year old female with a significant history of chronic leg wounds who presented to the ED with a complaint of fever today, general malaise for the past few days, vomited x 2 today. She went to urgent care who referred her to the ED to r/o sepsis. Upon exam, pt reports feeling better after IV fluids and antibiotics. Son reports that her right foot has redness which is new since yesterday and there seems to be more redness surrounding her chronic wound on her left leg. ER course was notable for: (1) WBC 22.6 (2) BUN 24, Cr 0.8 Recent Travel: pt denies PAST MEDICAL HISTORY: Osteoporosis, primary biliary cirrhosis, chronic leg ulcers, HTN PAST SURGICAL HISTORY: cataract inguinal hernia repair Social History: Smoking: pt denies Alcohol: pt denies Drugs: pt denies Family History: mother age 86, bone CA father, unk, siblings, unk Allergies cephalexin Allergy (Severe, Verified 11/07/17 16:26) Difficulty Breathing HOME MEDICATIONS: 3 Medication Instructions Recorded Losartan/Hydrochlorothiazide 100 each PO DAILY 09/30/17 [Losartan-Hctz 100-25 mg Tab] Metoprolol Tartrate 50 mg PO DAILY 09/30/17 Ursodiol [Actigal] 900 mg PO DAILY 09/30/17 REVIEW OF SYSTEMS CONSTITUTIONAL: Present: fever, malaise Absent: chills, diaphoresis, generalized weakness, loss of appetite, weight change HEENT: Absent: rhinorrhea, nasal congestion, throat pain, throat swelling, difficulty swallowing, mouth swelling, ear pain, eye pain, visual changes CARDIOVASCULAR: Absent: chest pain, syncope, palpitations, irregular heart rate, lightheadedness , peripheral edema RESPIRATORY: Absent: cough, shortness of breath, dyspnea with exertion, orthopnea, wheezing, stridor, hemoptysis GASTROINTESTINAL: Absent: abdominal pain, abdominal distension, nausea, vomiting, diarrhea, constipation, melena, hematochezia GENITOURINARY: Absent: dysuria, frequency, urgency, hesitancy, hematuria, flank pain, genital pain MUSCULOSKELETAL: Absent: myalgia, arthralgia, joint swelling, back pain, neck pain SKIN: Absent: rash, itching, pallor HEMATOLOGIC/IMMUNOLOGIC: Absent: easy bleeding, easy bruising, lymphadenopathy, frequent infections ENDOCRINE: Absent: unexplained weight gain, unexplained weight loss, heat intolerance, cold intolerance NEUROLOGIC: Absent: headache, focal weakness or paresthesias, dizziness, unsteady gait, seizure, mental status changes, bladder or bowel incontinence PSYCHIATRIC: Absent: anxiety, depression, suicidal or homicidal ideation, hallucinations. PHYSICAL EXAMINATION Vital Signs - 24 hr 3 11/07/17 11/07/17 11/07/17 16:27 17:30 21:12 Temperature 102.5 F H 99 F Pulse Rate 116 H 117 H Pulse Rate [ 90 Apical] Respiratory 20 26 H 27 H Rate Blood Pressure 148/77 132/87 Blood Pressure 108/52 [Right Arm] O2 Sat by Pulse 92 L 93 L 98 Oximetry (%) GENERAL: Awake, alert, and fully oriented, in no acute distress. HEAD: Normal with no signs of trauma. EYES: Pupils equal, round and reactive to light, extraocular movements intact, sclera anicteric, conjunctiva clear. No lid lag. EARS, NOSE, THROAT: Ears normal, nares patent, oropharynx clear without exudates. Moist mucous membranes. NECK: Normal range of motion, supple without lymphadenopathy, JVD, or masses. LUNGS: Breath sounds equal, clear to auscultation bilaterally. No wheezes, + crackles bilat bases. No accessory muscle use. HEART: Regular rate and rhythm, normal S1 and S2 without murmur, rub or gallop. ABDOMEN: Soft, nontender, not distended, normoactive bowel sounds, no guarding, no rebound, no masses. No hepatomegaly or splenomegaly. MUSCULOSKELETAL: Normal range of motion at all joints. No bony deformities or tenderness. No CVA tenderness. UPPER EXTREMITIES: 2+ pulses, warm, well-perfused. No cyanosis. No clubbing. No peripheral edema. LOWER EXTREMITIES: 2+ pulses, warm, well-perfused. No calf tenderness. tr peripheral edema right. left lower leg with multiple scabs covering ulcerations to anterior west, surround skin with erythema, R and L foot with erythema especially overlying metatarsals and MIP joints, left lower leg with erythema to lower half with warmth. NEUROLOGICAL: Cranial nerves II-XII intact. Normal speech. Normal gait. PSYCHIATRIC: Cooperative. Good eye contact. Appropriate mood and affect. SKIN: Warm, dry, normal turgor, no rashes or lesions noted, normal capillary refill. Laboratory Results - last 24 hr 3 11/07/17 11/07/17 11/07/17 16:43 16:43 16:43 WBC 22.6 H D RBC 4.20 Hgb 13.2 Hct 39.4 MCV 93.7 MCH 31.5 MCHC 33.6 RDW 14.9 Plt Count 230 D MPV 8.9 Neutrophils % No Result Required. Neutrophils % (Manual) 84.0 H Band Neutrophils % 4.0 Lymphocytes % No Result Required. Lymphocytes % (Manual) 5.0 L Monocytes % (Manual) 3 L Platelet Estimate Adequate Platelet Comment No clumping noted PT with INR 11.60 INR 1.03 PTT (Actin FS) 22.5 L VBG pH POC VBG pCO2 POC VBG pO2 Mixed VBG HCO3 Sodium Cancelled Potassium Cancelled Chloride Cancelled Carbon Dioxide Cancelled Anion Gap Cancelled BUN Cancelled Creatinine Cancelled Creat Clearance w eGFR Cancelled Random Glucose Cancelled Lactic Acid Calcium Cancelled Total Bilirubin Cancelled AST Cancelled ALT Cancelled Alkaline Phosphatase Cancelled Creatine Kinase Troponin I Total Protein Cancelled Albumin Cancelled Urine Color Urine Appearance Urine pH Ur Specific [place] Urine Protein Urine Glucose (UA) Urine Ketones Urine Blood Urine Nitrite Urine Bilirubin Urine Urobilinogen Ur Leukocyte Esterase Urine WBC (Auto) Urine RBC (Auto) Ur Epithelial Cells Urine Mucus 3 11/07/17 11/07/17 11/07/17 16:43 17:15 17:30 WBC RBC Hgb Hct MCV MCH MCHC RDW Plt Count MPV Neutrophils % Neutrophils % (Manual) Band Neutrophils % Lymphocytes % Lymphocytes % (Manual) Monocytes % (Manual) Platelet Estimate Platelet Comment PT with INR INR PTT (Actin FS) VBG pH 7.44 H POC VBG pCO2 46.0 POC VBG pO2 50.0 H D Mixed VBG HCO3 31.2 H Sodium Potassium Chloride Carbon Dioxide Anion Gap BUN Creatinine Creat Clearance w eGFR Random Glucose Lactic Acid 1.7 Calcium Total Bilirubin AST ALT Alkaline Phosphatase Creatine Kinase Troponin I Total Protein Albumin Urine Color Yellow Urine Appearance Cloudy Urine pH 5.0 Ur Specific [place] 1.023 Urine Protein Negative Urine Glucose (UA) Negative Urine Ketones Negative Urine Blood 2+ H Urine Nitrite Negative Urine Bilirubin Negative Urine Urobilinogen Negative Ur Leukocyte Esterase 2+ H Urine WBC (Auto) 23 Urine RBC (Auto) 12 Ur Epithelial Cells Many Urine Mucus Rare 3 11/07/17 11/07/17 17:30 17:30 WBC RBC Hgb Hct MCV MCH MCHC RDW Plt Count MPV Neutrophils % Neutrophils % (Manual) Band Neutrophils % Lymphocytes % Lymphocytes % (Manual) Monocytes % (Manual) Platelet Estimate Platelet Comment PT with INR INR PTT (Actin FS) VBG pH POC VBG pCO2 POC VBG pO2 Mixed VBG HCO3 Sodium 136 Potassium 3.7 Chloride 98 Carbon Dioxide 26 Anion Gap 12 BUN 24 H Creatinine 0.8 Creat Clearance w eGFR > 60 Random Glucose 124 H Lactic Acid 1.0 Calcium 8.2 L Total Bilirubin 0.7 AST 46 H ALT 26 Alkaline Phosphatase 89 Creatine Kinase 61 Troponin I 0.02 Total Protein 7.1 Albumin 2.8 L Urine Color Urine Appearance Urine pH Ur Specific [place] Urine Protein Urine Glucose (UA) Urine Ketones Urine Blood Urine Nitrite Urine Bilirubin Urine Urobilinogen Ur Leukocyte Esterase Urine WBC (Auto) Urine RBC (Auto) Ur Epithelial Cells Urine Mucus Radiology Reports CXR, pending official read, no obvious acute changes when c/w old cxr from ECG sinus tachycardia minimal voltage criteria for LVH nonspecific T wave abnormality ASSESSMENT/PLAN: 77yF with PMH Osteoporosis, primary biliary cirrhosis, chronic leg ulcers, HTN who presented to the ED with general malaise x few days, vomiting and fever today. Sepsis secondary to cellulitis - as evidenced by fever, tachycardia - lactic acid WNL - cont zosyn and vanc for now - ID consult - Vascular consult HTN - cont home hyzaar and metoprolol cirrhosis - cont ursodiol DVT PPX - heparin bID FEN - s/p 1L NS in ED, hold on further IVF, no further vomiting - BMP in am - Low sodium diet as tolerated. Tolerated juice in ED Dispo: Pt currently requires further observation. Visit type - Emergency Visit Emergency Visit: Yes ED Registration Date: 11/07/17 Care time: The patient presented to the Emergency Department on the above date and was hospitalized for further evaluation of their emergent condition. - New Patient This patient is new to me today: Yes Date on this admission: 11/07/17 - Critical Care Critical Care patient: No Hospitalist Screening - Colonoscopy Questionnaire Colonoscopy Questionnaire: Colonoscopy Questionnaire - Patient: 50 - 75 years old and never had a screening colonoscopy: No History of colon or rectal polyps, or CA: Unknown History of IBD, Crohn's disease or UC: Unknown History of abdominal radiation therapy as a child: Unknown - Relative: 1 with colon or rectal CA, or polyps at age 60 or younger: Unknown Colon or rectal CA diagnosed at age 45 or younger: Unknown Multiple relatives with colon or rectal CA: Unknown - Outcome: Screening Result: Negative Screen
[2017-11-07] MEDS: HEPARIN NA (PORCINE) 5,000 UNITS/ML 1ML VIAL SQ SCH (21:41)
[2017-11-07] MEDS ORDERED: HEPARIN NA (PORCINE) 5,000 UNITS/ML 1ML VIAL ONE (21:42)
[2017-11-07] MEDS: URSODIOL 300 MG CAPSULE PO SCH (23:34)
[2017-11-08] MEDS ORDERED: PIPERACIL/TAZOB 3.375 GM 3.375 GM/50 ML PREMIX IVPB ONE
[2017-11-08 00:24] VITALS: BMI 29.9
[2017-11-08] MEDS ORDERED: PIPERACILLIN/TAZOB 3.375 GM 3.375 GM in DEXTROSE 5%-WATER - 50 ML IVPB ONE (00:45)
[2017-11-08] MEDS: URSODIOL 300 MG CAPSULE PO SCH ×3 (06:26→22:47)
[2017-11-08 08:07] LABS: BASO % 0.4 % (0-2.0); HEMATOCRIT 33.9 % (32.4-45.2); HEMOGLOBIN 11.4 GM/dL (10.7-15.3); MCH 31.3 pg (25.7-33.7); MCHC 33.5 g/dl (32.0-36.0); MEAN CELL VOLUME 93.3 fl (80-96); MEAN PLT VOLUME 8.5 fl (7.5-11.1); MONO % 4.1 % (3.8-10.2); NEUT % 91.5 % (42.8-82.8); PLATELET COUNT 190 K/MM3 (134-434); RBC 3.63 M/mm3 (3.60-5.2); RDW 14.8 % (11.6-15.6); WHITE BLOOD COUNT 19.3 K/mm3 (4.0-10.0)
[2017-11-08 08:46] LABS: ALBUMIN 2.4 g/dl (3.4-5.0); ALK PHOS 74 U/L (45-117); ANION GAP 8 (8-16); BILIRUBIN,TOTAL 0.7 mg/dL (0.2-1.0); BLOOD UREA NITROGEN 24 mg/dL (7-18); CALCIUM 8.2 mg/dL (8.5-10.1); CHLORIDE 97 mmol/L (98-107); CO2 30 mmol/L (21-32); CREATININE 0.8 mg/dL (0.55-1.02); GLUCOSE,RANDOM 96 mg/dL (74-106); MAGNESIUM 1.6 mg/dL (1.8-2.4); PHOSPHOROUS 2.8 mg/dL (2.5-4.9); SGOT/AST 25 U/L (15-37); SGPT/ALT 19 U/L (12-78); SODIUM 135 mmol/L (136-145); TOT PROT 6.2 g/dl (6.4-8.2)
--- NOTE | 2017-11-08 09:26 | PN ---
Progress Note, Physician History of Present Illness: Pt seen/ examined. chart reviewed Comfortable no complains low grade temp. - Current Medication List Current Medications: Active Medications HCTZ/Losartan Potassium (Hyzaar -) 2 tab PO DAILY [facility] Heparin Sodium (Porcine) (Heparin -) 5,000 unit SQ BID [facility] Last Admin: 11/07/17 21:41 Dose: 5,000 unit Metoprolol Succinate (Toprol Xl -) 50 mg PO DAILY [facility] Ursodiol (Actigal -) 300 mg PO TID [facility] Last Admin: 11/08/17 06:26 Dose: 300 mg - Objective Vital Signs: Vital Signs Temperature 98.9 F 11/08/17 06:00 Pulse Rate 95 H 11/08/17 06:00 Respiratory Rate 20 11/08/17 06:00 Blood Pressure 129/62 11/08/17 06:00 O2 Sat by Pulse Oximetry (%) 98 11/07/17 23:36 Constitutional: Yes: No Distress, Calm Neck: Yes: Supple Cardiovascular: Yes: Regular Rate and Rhythm Respiratory: Yes: CTA Bilaterally Gastrointestinal: Yes: Soft Edema: No Integumentary: Yes: Other (right lower extremity -- erythema . left lower extremity --open superfical wound.) Neurological: Yes: Alert Labs: CBC, BMP 11/08/17 07:55 11/08/17 07:55 INR, PTT INR 1.03 (0.82-1.09) 11/07/17 16:43 Problem List - Problems (1) Cellulitis Code(s): L03.90 - CELLULITIS, UNSPECIFIED Qualifiers: Site of cellulitis: extremity Site of cellulitis of extremity: lower extremity Laterality: left Qualified Code(s): L03.116 - Cellulitis of left lower limb (2) Cellulitis and abscess of lower extremity Code(s): L02.419 - CUTANEOUS ABSCESS OF LIMB, UNSPECIFIED; L03.119 - CELLULITIS OF UNSPECIFIED PART OF LIMB (3) Primary biliary cirrhosis Code(s): K74.3 - PRIMARY BILIARY CIRRHOSIS Assessment/Plan clinically stable/ better abx local care i/d / wound care consults pending f/u labs discussed with nursing staff will follow
--- NOTE | 2017-11-08 09:32 | PN ---
Progress Note, Physician Chief Complaint: ID Full note dictated Appears comfortable now afebrile - Current Medication List Current Medications: Active Medications HCTZ/Losartan Potassium (Hyzaar -) 2 tab PO DAILY [facility] Heparin Sodium (Porcine) (Heparin -) 5,000 unit SQ BID [facility] Last Admin: 11/07/17 21:41 Dose: 5,000 unit Metoprolol Succinate (Toprol Xl -) 50 mg PO DAILY [facility] Ursodiol (Actigal -) 300 mg PO TID [facility] Last Admin: 11/08/17 06:26 Dose: 300 mg - Objective Vital Signs: Vital Signs Temperature 98.9 F 11/08/17 06:00 Pulse Rate 95 H 11/08/17 06:00 Respiratory Rate 20 11/08/17 06:00 Blood Pressure 129/62 11/08/17 06:00 O2 Sat by Pulse Oximetry (%) 98 11/07/17 23:36 Extremities: Yes: Other (RLE erythema venous stasis changes Left west superficial ulcer not infected) Labs: CBC, BMP 11/08/17 07:55 11/08/17 07:55 INR, PTT INR 1.03 (0.82-1.09) 11/07/17 16:43 Assessment/Plan Microbiology Laboratory Tests 11/07/17 11/07/17 11/08/17 16:43 17:30 07:55 WBC 22.6 H D 19.3 H Plt Count 190 Creatinine Ur Leukocyte Esterase 2+ H Urine WBC (Auto) 23 Urine RBC (Auto) 12 11/08/17 07:55 WBC Plt Count Creatinine 0.8 Ur Leukocyte Esterase Urine WBC (Auto) Urine RBC (Auto) Assessment RLE cellulitis Fever leukocytosis improving MRSA positive Aug 2017 Plan Treat with Vanco alone Jason San MD
[2017-11-08 09:47] LABS: POTASSIUM 2.7 mmol/L (3.5-5.1)
[2017-11-08] MEDS ORDERED: PT OWN MED DRAWER 7, Y5N ONE ×4 (09:52→18:27)
--- NOTE | 2017-11-08 09:57 | CONS ---
DATE OF CONSULTATION: HISTORY: This is a 77-year-old female who was admitted with the chief complaint of female with a history of lower extremity chronic wounds and now cellulitis. She noted generalized malaise for several days associated with vomiting and was seen initially in an urgent care before being admitted through our emergency room with fever and leukocytosis. Her white count was 22.6. She was given vancomycin. Currently she feels completely well with no chills, abdominal pain , or urinary complaints. 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 MEDICATIONS: Include losartan, hydrochlorothiazide, metoprolol. ALLERGIES: None known. SOCIAL HISTORY: Denies smoking, alcohol, substance abuse. FAMILY HISTORY: Positive for a mother with bone cancer. Father unknown medical illness. REVIEW OF SYSTEMS: Respiratory: No cough, shortness of breath. Cardiac: No chest pain, palpitations, syncope. Gastrointestinal: No nausea, vomiting, or diarrhea. Vomiting prior to admission x2. Genitourinary: No dysuria, hematuria. PHYSICAL EXAMINATION: General: Reveals a well-nourished woman in no acute distress. Vital Signs: Temperature 98.8, pulse 95, blood pressure 130/62, respirations 20 , T-max 102.5. Neck: Supple without adenopathy. Lungs: Clear to percussion and auscultation. Heart: S1, S2. Regular rhythm without audible murmur. Abdomen: Soft and nontender without organomegaly. No guarding or rebound. Extremities: Reveal confluent erythema of the right lower extremity with superficial venostasis skin changes. The left lower extremity had an open superficial wound mostly minimal blood present superficially. No purulence and no cellulitis noted. LABORATORY DATA: The white count is 19,000, hemoglobin 11.4, platelets 190, BUN 24, creatinine 0.8. Liver enzymes within normal limits. Lactic acid 1.7. Urinalysis: WBCs 23, RBCs 12 with 2+ leukocyte esterase. ASSESSMENT: 1. Fever and leukocytosis secondary to cellulitis of the left lower extremity. 2. History of methicillin-resistant Staphylococcus aureus from a wound culture August 2017. PLAN: We will treat exclusively for gram-positive cellulitis of the left leg. Obtain nares screening for surveillance to see if we can take the patient off isolation at this point. Vancomycin adjusted for creatinine and her advanced age. CHANELLE WRAY M.D. SANDEEP/[id number] MTDD
[2017-11-08] MEDS: HEPARIN NA (PORCINE) 5,000 UNITS/ML 1ML VIAL SQ SCH ×2 (10:17→22:48)
[2017-11-08] MEDS ORDERED: POTASSIUM CHLORIDE ORAL LIQUID 20 MEQ/15 ML PO ONE ×2 (12:00→14:00)
[2017-11-08] MEDS: VANCOMYCIN 1,250 MG in DEXTROSE 5%-WATER - 250 ML IVPB SCH (13:17)
--- NOTE | 2017-11-08 14:51 | EKG ---
Test Reason : Blood Pressure : / mmHG Vent. Rate : 111 BPM Atrial Rate : 111 BPM P-R Int : 162 ms QRS Dur : 074 ms QT Int : 344 ms P-R-T Axes : 044 -06 015 degrees QTc Int : 467 ms SINUS TACHYCARDIA MINIMAL VOLTAGE CRITERIA FOR LVH, MAY BE NORMAL VARIANT NONSPECIFIC T WAVE ABNORMALITY ABNORMAL ECG WHEN COMPARED WITH ECG OF 30-SEP-2017 00:28, NONSPECIFIC T WAVE ABNORMALITY, WORSE IN LATERAL LEADS Confirmed by ISABELA PAREDES MD ([id number]) on 11/08/2017 2:50:34 PM Referred By: Confirmed By:ISABELA PAREDES MD
[2017-11-08] MEDS: LOSARTAN 50MG/HCTZ 12.5MG 1 TAB (FP) PO SCH (15:11)
[2017-11-08 17:40] LABS: ANION GAP 7 (8-16); BLOOD UREA NITROGEN 21 mg/dL (7-18); CALCIUM 8.3 mg/dL (8.5-10.1); CHLORIDE 101 mmol/L (98-107); CO2 27 mmol/L (21-32); GLUCOSE,RANDOM 88 mg/dL (74-106); POTASSIUM 4.2 mmol/L (3.5-5.1); SODIUM 135 mmol/L (136-145)
[2017-11-08 17:43] LABS: CREATININE 0.9 mg/dL (0.55-1.02)
[2017-11-09] MEDS: URSODIOL 300 MG CAPSULE PO SCH ×3 (06:32→21:43)
[2017-11-09 08:00] LABS: BASO % 0.5 % (0-2.0); HEMATOCRIT 34.2 % (32.4-45.2); HEMOGLOBIN 11.5 GM/dL (10.7-15.3); LYMPH % 15.3 % (8-40); MCH 31.5 pg (25.7-33.7); MCHC 33.5 g/dl (32.0-36.0); MEAN PLT VOLUME 8.7 fl (7.5-11.1); MONO % 9.3 % (3.8-10.2); NEUT % 73.9 % (42.8-82.8); PLATELET COUNT 184 K/MM3 (134-434); RBC 3.64 M/mm3 (3.60-5.2); RDW 15.1 % (11.6-15.6); WHITE BLOOD COUNT 8.9 K/mm3 (4.0-10.0)
[2017-11-09 08:16] LABS: BLOOD UREA NITROGEN 19 mg/dL (7-18); CHLORIDE 99 mmol/L (98-107); POTASSIUM 3.4 mmol/L (3.5-5.1); SGOT/AST 20 U/L (15-37); SGPT/ALT 20 U/L (12-78); SODIUM 138 mmol/L (136-145)
[2017-11-09 08:20] LABS: ALBUMIN 2.4 g/dl (3.4-5.0); ALK PHOS 71 U/L (45-117); ANION GAP 10 (8-16); BILIRUBIN,TOTAL 0.4 mg/dL (0.2-1.0); CALCIUM 8.6 mg/dL (8.5-10.1); CO2 29 mmol/L (21-32); CREATININE 0.8 mg/dL (0.55-1.02); GLUCOSE,RANDOM 91 mg/dL (74-106); TOT PROT 6.5 g/dl (6.4-8.2)
--- NOTE | 2017-11-09 08:35 | CONSULT ---
- Consultation REQUESTING PROVIDER: Reynold Yoder - Vascular Surgery / Wound Care CONSULT REQUEST: We have been asked to surgically evaluate this patient for chronic LE wounds and cellulitis PCP: Becky Vick HPI: Called to eval 77 yo female well know to Dr. Yoder at [facility]. Presents to [facility] ED w/ c/o increased LE swelling over the past two weeks. Also had n/v and fevers (102.5F) on admit to hospital. Currently, resting comfortably without complaint. States she feels much better today compared to when she was admitted to hospital. Denies n/v/f/c, CP, SOB, [place], claudication, numbness, tingling, paresthesia or trauma to LE. Of not, patient was last admitted tp [facility] on 09/30/17 with a working diagnosis of sepsis secondary to UTI Patient signed out AMA. PMHx: HTN, Cirrhosis (primary biliary), Osteoporosis, Chronic LE wounds, bilat LE edema , HLD PSHx: Cataract, inguinal hernia repair Home Meds: Losartan 100mg Metoprolol 50mg Ursodiol 900mg Allergies Cephalexin --> difficulty breathing ROS: Systems reviewed and considered negative except for what's contained in HPI. PE: GENERAL: Awake, alert, and fully oriented, in no acute distress. HEAD: NC. AT. EYES: PERRL, sclera anicteric, conjunctiva clear. NECK: Normal ROM, supple without lymphadenopathy, JVD, or masses. LUNGS: CTA bilat anteriorly HEART: RRR ABDOMEN: Soft. NT. ND. UE: 2+ pulses, warm, well-perfused. No cyanosis. Cap refill <2 seconds. No peripheral edema. LE: Right --> +1 edema. No calf tenderness. Erythematous to anterior aspect of west. No weeping. Heel intact. Digital web-space skin intact. Cap refill < 3 sec Left --> multiple sores (dry/scab) covering area ~ 8 x 10 cm to anterior aspect of west. Surrounding erythema. No weeping. Heel intact. Digital web- space skin intact. Cap refill < 3 sec NEUROLOGICAL: Normal speech, gait not observed. PSYCH: Cooperative. Good eye contact. Appropriate mood and affect. SKIN: Warm, dry, normal turgor, no rashes or lesions noted. Last Vital Signs Temp Pulse Resp BP Pulse Ox 98.7 F 85 20 129/74 94 L 11/09/17 06:00 11/09/17 06:00 11/09/17 06:00 11/09/17 06:00 11/08/17 22:00 WBC Trend 11/07/17 11/08/17 11/09/17 16:43 07:55 06:35 WBC 22.6 H D 19.3 H 8.9 D INR, PTT INR 1.03 (0.82-1.09) 11/07/17 16:43 Urine Test Results Urine Color Yellow 11/07/17 17:30 Urine Appearance Cloudy 11/07/17 17:30 Urine pH 5.0 (5.0-8.0) 11/07/17 17:30 Ur Specific [place] 1.023 (1.001-1.035) 11/07/17 17:30 Urine Protein Negative (NEGATIVE) 11/07/17 17:30 Urine Glucose (UA) Negative (NEGATIVE) 11/07/17 17:30 Urine Ketones Negative (NEGATIVE) 11/07/17 17:30 Urine Blood 2+ (NEGATIVE) H 11/07/17 17:30 Urine Nitrite Negative (NEGATIVE) 11/07/17 17:30 Urine Bilirubin Negative (<2.0 mg/dL) 11/07/17 17:30 Ur Leukocyte Esterase 2+ (NEGATIVE) H 11/07/17 17:30 Ur Epithelial Cells Many /HPF (FEW) 11/07/17 17:30 Urine Mucus Rare 11/07/17 17:30 Problem List - Problems (1) Cellulitis Assessment/Plan: Dressings changed on rounds (daily dressing changes ordered) RLE: dry dressing LLE: Xeroform to anterior west / 4x4 / kerlix Offload all pressure sensitive areas Heel protectors Tylenol for Fever > 100.3F WBC normal No surgical intervention Cont care per medicine Above discussed with Dr. Yoder and agrees On behalf of Dr. Yoedr, thank you for the opportunity to participate in your patient's care. Code(s): L03.90 - CELLULITIS, UNSPECIFIED Qualifiers: Site of cellulitis: extremity Site of cellulitis of extremity: lower extremity Laterality: left Qualified Code(s): L03.116 - Cellulitis of left lower limb Visit type - Case Type Case Type: ED Admission - Emergency Emergency Visit: Yes ED Registration Date: 11/08/17 Care time: The patient presented to the Emergency Department on the above date and was hospitalized for further evaluation of their emergent condition. - New patient This patient is new to me today: Yes Date on this admission: 11/09/17
[2017-11-09] MEDS ORDERED: PT OWN MED DRAWER 7, Y5N ONE ×2 (09:24→21:06)
[2017-11-09] MEDS: VANCOMYCIN 1,250 MG in DEXTROSE 5%-WATER - 250 ML IVPB SCH (09:36)
[2017-11-09] MEDS: HEPARIN NA (PORCINE) 5,000 UNITS/ML 1ML VIAL SQ SCH ×2 (09:37→21:43)
[2017-11-09] MEDS: LOSARTAN 50MG/HCTZ 12.5MG 1 TAB (FP) PO SCH (09:38)
--- NOTE | 2017-11-09 11:20 | PN ---
Progress Note, Physician Chief Complaint: Events noted No complaints feels well No pain in legs - Current Medication List Current Medications: Active Medications HCTZ/Losartan Potassium (Hyzaar -) 2 tab PO DAILY [facility] Last Admin: 11/09/17 09:38 Dose: 2 tab Heparin Sodium (Porcine) (Heparin -) 5,000 unit SQ BID [facility] Last Admin: 11/09/17 09:37 Dose: 5,000 unit Vancomycin HCl 1,250 mg/ (Dextrose) 250 mls @ 166.667 mls/hr IVPB DAILY [facility] PRN Reason: Protocol Last Admin: 11/09/17 09:36 Dose: 166.667 mls/hr Metoprolol Succinate (Toprol Xl -) 50 mg PO DAILY [facility] Last Admin: 11/09/17 09:38 Dose: 50 mg Potassium Chloride (K-Dur -) 40 meq PO ONCE ONE Stop: 11/09/17 11:20 Ursodiol (Actigal -) 300 mg PO TID [facility] Last Admin: 11/09/17 06:32 Dose: 300 mg - Objective Vital Signs: Vital Signs Temperature 98.7 F 11/09/17 06:00 Pulse Rate 96 H 11/09/17 09:00 Respiratory Rate 20 11/09/17 09:00 Blood Pressure 128/82 11/09/17 09:00 O2 Sat by Pulse Oximetry (%) 94 L 11/09/17 09:00 Constitutional: Yes: No Distress Cardiovascular: Yes: Regular Rate and Rhythm Respiratory: Yes: CTA Bilaterally Gastrointestinal: Yes: Normal Bowel Sounds, Soft, Abdomen, Obese. No: Palpable Mass, Tenderness Extremities: Yes: Other (dressings to B.L legs) Edema: Yes Edema: LLE: 1+, RLE: 1+ Labs: CBC, BMP 11/09/17 06:35 11/09/17 06:35 INR, PTT INR 1.03 (0.82-1.09) 11/07/17 16:43 Problem List - Problems (1) Cellulitis Code(s): L03.90 - CELLULITIS, UNSPECIFIED Qualifiers: Site of cellulitis: extremity Site of cellulitis of extremity: lower extremity Laterality: left Qualified Code(s): L03.116 - Cellulitis of left lower limb (2) Sepsis Code(s): A41.9 - SEPSIS, UNSPECIFIED ORGANISM Qualifiers: Sepsis type: sepsis due to unspecified organism Qualified Code(s): A41.9 - Sepsis, unspecified organism (3) Chronic kidney disease Code(s): N18.9 - CHRONIC KIDNEY DISEASE, UNSPECIFIED Qualifiers: Chronic kidney disease stage: stage 2 (mild) Qualified Code(s): N18.2 - Chronic kidney disease, stage 2 (mild) (4) Hypertension Code(s): I10 - ESSENTIAL (PRIMARY) HYPERTENSION (5) Primary biliary cirrhosis Code(s): K74.3 - PRIMARY BILIARY CIRRHOSIS Assessment/Plan PLAN MRSA No interventions per Vascular ID eval appreciated On IV Vanco replace potassium Continue with current care contact isolation
[2017-11-09] MEDS ORDERED: POTASSIUM CHLORIDE TABS 20 MEQ TABLET.ER (FP) PO ONE ×2 (11:45→15:45)
--- NOTE | 2017-11-09 16:02 | PN ---
Progress Note, Physician History of Present Illness: Awake, alert in bed No c/o leg pain Temps down Afebrile WBC improved - Current Medication List Current Medications: Active Medications HCTZ/Losartan Potassium (Hyzaar -) 2 tab PO DAILY [facility] Last Admin: 11/09/17 09:38 Dose: 2 tab Heparin Sodium (Porcine) (Heparin -) 5,000 unit SQ BID [facility] Last Admin: 11/09/17 09:37 Dose: 5,000 unit Vancomycin HCl 1,250 mg/ (Dextrose) 250 mls @ 166.667 mls/hr IVPB DAILY [facility] PRN Reason: Protocol Last Admin: 11/09/17 09:36 Dose: 166.667 mls/hr Metoprolol Succinate (Toprol Xl -) 50 mg PO DAILY [facility] Last Admin: 11/09/17 09:38 Dose: 50 mg Ursodiol (Actigal -) 300 mg PO TID [facility] Last Admin: 11/09/17 14:43 Dose: 300 mg - Objective Vital Signs: Vital Signs Temperature 99.2 F 11/09/17 13:42 Pulse Rate 84 11/09/17 13:42 Respiratory Rate 17 11/09/17 13:42 Blood Pressure 129/89 11/09/17 13:42 O2 Sat by Pulse Oximetry (%) 94 L 11/09/17 09:00 Constitutional: Yes: No Distress, Obese Eyes: Yes: Conjunctiva Clear Cardiovascular: Yes: Regular Rate and Rhythm, S1 Respiratory: Yes: CTA Bilaterally Gastrointestinal: Yes: Normal Bowel Sounds, Soft. No: Tenderness Extremities: Yes: Erythema, Other (+ erythema / warmth distal R LE ulceration/ erythema L pretibial area) Labs: CBC, BMP 11/09/17 06:35 11/09/17 06:35 INR, PTT INR 1.03 (0.82-1.09) 11/07/17 16:43 Assessment/Plan LE cellulitis Cephalosporin allergy Continue vancomycin
[2017-11-10] MEDS ORDERED: PT OWN MED DRAWER 7, Y5N ONE ×3 (04:59→20:36)
[2017-11-10] MEDS: URSODIOL 300 MG CAPSULE PO SCH ×3 (05:36→21:00)
[2017-11-10 07:59] LABS: ANION GAP 5 (8-16); BLOOD UREA NITROGEN 22 mg/dL (7-18); CALCIUM 8.6 mg/dL (8.5-10.1); CHLORIDE 101 mmol/L (98-107); CO2 32 mmol/L (21-32); CREATININE 0.8 mg/dL (0.55-1.02); GLUCOSE,RANDOM 92 mg/dL (74-106); POTASSIUM 3.9 mmol/L (3.5-5.1); SODIUM 138 mmol/L (136-145)
[2017-11-10] MEDS: VANCOMYCIN 1,250 MG in DEXTROSE 5%-WATER - 250 ML IVPB SCH (09:57)
[2017-11-10] MEDS: HEPARIN NA (PORCINE) 5,000 UNITS/ML 1ML VIAL SQ SCH ×2 (09:58→21:00)
[2017-11-10] MEDS: LOSARTAN 50MG/HCTZ 12.5MG 1 TAB (FP) PO SCH (09:59)
--- NOTE | 2017-11-10 11:43 | PN ---
Progress Note, Physician Chief Complaint: No complaints Feels well wants to go home - Current Medication List Current Medications: Active Medications HCTZ/Losartan Potassium (Hyzaar -) 2 tab PO DAILY [facility] Last Admin: 11/10/17 09:59 Dose: 2 tab Heparin Sodium (Porcine) (Heparin -) 5,000 unit SQ BID [facility] Last Admin: 11/10/17 09:58 Dose: 5,000 unit Vancomycin HCl 1,250 mg/ (Dextrose) 250 mls @ 166.667 mls/hr IVPB DAILY [facility] PRN Reason: Protocol Last Admin: 11/10/17 09:57 Dose: 166.667 mls/hr Metoprolol Succinate (Toprol Xl -) 50 mg PO DAILY [facility] Last Admin: 11/10/17 09:58 Dose: 50 mg Ursodiol (Actigal -) 300 mg PO TID [facility] Last Admin: 11/10/17 05:36 Dose: 300 mg - Objective Vital Signs: Vital Signs Temperature 98.0 F 11/10/17 06:00 Pulse Rate 70 11/10/17 06:00 Respiratory Rate 20 11/10/17 06:00 Blood Pressure 135/57 11/10/17 06:00 O2 Sat by Pulse Oximetry (%) 94 L 11/09/17 21:00 Constitutional: Yes: No Distress Cardiovascular: Yes: Regular Rate and Rhythm Respiratory: Yes: CTA Bilaterally Gastrointestinal: Yes: Normal Bowel Sounds, Soft. No: Tenderness Extremities: Yes: Other (dressing in place) Edema: Yes Labs: CBC, BMP 11/09/17 06:35 11/10/17 07:20 INR, PTT INR 1.03 (0.82-1.09) 11/07/17 16:43 Problem List - Problems (1) Cellulitis Code(s): L03.90 - CELLULITIS, UNSPECIFIED Qualifiers: Site of cellulitis: extremity Site of cellulitis of extremity: lower extremity Laterality: left Qualified Code(s): L03.116 - Cellulitis of left lower limb (2) Sepsis Code(s): A41.9 - SEPSIS, UNSPECIFIED ORGANISM Qualifiers: Sepsis type: sepsis due to unspecified organism Qualified Code(s): A41.9 - Sepsis, unspecified organism (3) Chronic kidney disease Code(s): N18.9 - CHRONIC KIDNEY DISEASE, UNSPECIFIED Qualifiers: Chronic kidney disease stage: stage 2 (mild) Qualified Code(s): N18.2 - Chronic kidney disease, stage 2 (mild) (4) Hypertension Code(s): I10 - ESSENTIAL (PRIMARY) HYPERTENSION (5) Primary biliary cirrhosis Code(s): K74.3 - PRIMARY BILIARY CIRRHOSIS Assessment/Plan PLAN MRSA No interventions per Vascular ID eval appreciated On IV Vanco Continue with current care contact isolation
[2017-11-11] MEDS ORDERED: PT OWN MED DRAWER 7, Y5N ONE ×3 (05:01→13:19)
[2017-11-11] MEDS: URSODIOL 300 MG CAPSULE PO SCH ×2 (05:10→13:34)
[2017-11-11 07:44] VITALS: PULSE 76
[2017-11-11] MEDS: LOSARTAN 50MG/HCTZ 12.5MG 1 TAB (FP) PO SCH (10:59)
[2017-11-11] MEDS: HEPARIN NA (PORCINE) 5,000 UNITS/ML 1ML VIAL SQ SCH (10:59)
[2017-11-11] MEDS: VANCOMYCIN 1,250 MG in DEXTROSE 5%-WATER - 250 ML IVPB SCH (10:59)
--- NOTE | 2017-11-11 12:04 | PN ---
Progress Note, Physician History of Present Illness: Awake, alert in bed No complaints No c/o leg pain Temps down Afebrile WBC WNL - Current Medication List Current Medications: Active Medications HCTZ/Losartan Potassium (Hyzaar -) 2 tab PO DAILY [facility] Last Admin: 11/11/17 10:59 Dose: 2 tab Heparin Sodium (Porcine) (Heparin -) 5,000 unit SQ BID [facility] Last Admin: 11/11/17 10:59 Dose: 5,000 unit Vancomycin HCl 1,250 mg/ (Dextrose) 250 mls @ 166.667 mls/hr IVPB DAILY [facility] PRN Reason: Protocol Last Admin: 11/11/17 10:59 Dose: 166.667 mls/hr Metoprolol Succinate (Toprol Xl -) 50 mg PO DAILY [facility] Last Admin: 11/11/17 10:59 Dose: 50 mg Ursodiol (Actigal -) 300 mg PO TID [facility] Last Admin: 11/11/17 05:10 Dose: 300 mg - Objective Vital Signs: Vital Signs Temperature 97.5 F L 11/11/17 06:00 Pulse Rate 76 11/11/17 06:00 Respiratory Rate 20 11/11/17 06:00 Blood Pressure 126/76 11/11/17 06:00 O2 Sat by Pulse Oximetry (%) 94 L 11/10/17 21:00 Constitutional: Yes: No Distress Eyes: Yes: Conjunctiva Clear Cardiovascular: Yes: Regular Rate and Rhythm, S1, S2 Respiratory: Yes: CTA Bilaterally Gastrointestinal: Yes: Normal Bowel Sounds, Soft. No: Tenderness Extremities: Yes: Other (decreased erythema R LE, now mostly medial mid- calf Dry ulcer L LE) Labs: CBC, BMP 11/09/17 06:35 11/10/17 07:20 INR, PTT INR 1.03 (0.82-1.09) 11/07/17 16:43 Assessment/Plan LE cellulitis improved Cephalosporin allergy Substitute clindamycin 300mg po tid x 5days with probiotic
--- NOTE | 2017-11-11 12:27 | DS ---
Physical Examination Vital Signs: Vital Signs Temperature 97.5 F L 11/11/17 06:00 Pulse Rate 76 11/11/17 06:00 Respiratory Rate 20 11/11/17 06:00 Blood Pressure 126/76 11/11/17 06:00 O2 Sat by Pulse Oximetry (%) 94 L 11/10/17 21:00 Labs: CBC, BMP 11/09/17 06:35 11/10/17 07:20 Discharge Summary Reason For Visit: CELULLITIS, SEPSIS Current Active Problems Cellulitis (Acute) Sepsis (Acute) Condition: Stable - Instructions Referrals: Honorio Obando MD [Primary Care Provider] - Reynold Yoder MD [Staff Physician] - (wound care) Disposition: HOME - Home Medications Comprehensive Discharge Medication List: Ambulatory Orders Losartan/Hydrochlorothiazide [Losartan-Hctz 100-25 mg Tab] 100 each PO DAILY Metoprolol Tartrate 50 mg PO DAILY 09/30/17 Ursodiol [Actigal -] 900 mg PO DAILY 09/30/17 Clindamycin [Cleocin -] 300 mg PO TID #15 capsule 11/11/17 Lactobacillus Acidophilus [Bacid -] 1 each PO BID #30 capsule 11/11/17
[2017-11-11 14:23] VITALS: TEMP 98
[2017-11-11 15:40] VITALS: BP 144/79
== END 2017-11-11 15:58 | disposition home or self-care (01) | DRG 872 ==
LOC: JER 16:24 → JERBED 20:01 → J5S 22:43 → OBSVTOIN 11-08 14:00
PROVIDERS: ADMIT Internal Medicine; ATTEND Internal Medicine
DX: A41.9 Sepsis, unspecified organism (principal); L03.116 Cellulitis of left lower limb; L97.809 Non-pressure chronic ulcer of other part of unspecified lower leg with unspecified severity; E78.5 Hyperlipidemia, unspecified; M81.0 Age-related osteoporosis without current pathological fracture; K74.3 Primary biliary cirrhosis; I12.9 Hypertensive chronic kidney disease with stage 1 through stage 4 chronic kidney disease, or unspecified chronic kidney disease; N18.2 Chronic kidney disease, stage 2 (mild)
CPT/HCPCS: 36415; 71045-TC-FY; 80048; 80053; 81003; 81015; 82550; 82803; 83605; 83735; 84100; 84484; 85025; 85610; 85730; 87040; 87081; 87086; 93005; 93010; 99285-25; G0378; J0131; J1644; J7030

== ENCOUNTER 2018-02-06 12:25 | Emergency (ER) | payer OTHER ==
[2018-02-06 12:37] VITALS: BP 97/53; PULSE 93; TEMP 98; BMI 35.2
[2018-02-06] MEDS ORDERED: ONDANSETRON 4 MG/2 ML VIAL IVPUSH ONE (13:13)
[2018-02-06] MEDS ORDERED: SODIUM CHLORIDE 1,000 ML IV STA (13:13)
[2018-02-06] MEDS ORDERED: ONDANSETRON 4 MG/2 ML VIAL ONE (13:20)
[2018-02-06 13:33] LABS: HEMATOCRIT 37.8 % (32.4-45.2); HEMOGLOBIN 12.6 GM/dL (10.7-15.3); MCH 30.6 pg (25.7-33.7); MCHC 33.4 g/dl (32.0-36.0); MEAN CELL VOLUME 91.7 fl (80-96); MEAN PLT VOLUME 8.4 fl (7.5-11.1); PLATELET COUNT 237 K/MM3 (134-434); RBC 4.12 M/mm3 (3.60-5.2); RDW 13.9 % (11.6-15.6); WHITE BLOOD COUNT 13.3 K/mm3 (4.0-10.0)
[2018-02-06 13:46] LABS: INR 1.24 (0.82-1.09)
--- NOTE | 2018-02-06 14:03 | PDOC ---
Attending Attestation - Resident Resident Name: DanielmosheAlfredo - ED Attending Attestation I have performed the following: I have examined & evaluated the patient, The case was reviewed & discussed with the resident, I agree w/resident's findings & plan, Exceptions are as noted - HPI HPI: 02/06/18 14:03 "The patient is a 77 year old female, with a significant past medical history of liver cirrhosis and hypertension, and arrhythmia, who presents to the emergency department with 4 days of diarrhea. She was admitted here 3 months ago for cellulitis and d/c home with clindamycin for 1 week, which she completed. Patient comes in today with multiple episodes of non-bloody, watery diarrhea. She states she is unable to eat and feels weak but denies N/V. Denies F/C. Denies recent travel or sick contacts. The patient denies chest pain, shortness of breath, headache and dizziness. The patient denies abdominal pain, nausea, vomit, and constipation. The patient denies dysuria, frequency, urgency and hematuria. Allergies: cephalexin Past surgical history: cataract surgery, inguinal hernia repair PCP: " - Physicial Exam PE: 02/06/18 14:04 """GENERAL: Awake, alert, and fully oriented, in no acute distress. HEAD: No signs of trauma EYES: PERRLA, EOMI, sclera anicteric, conjunctiva clear ENT: Auricles normal inspection, hearing grossly normal, nares patent, oropharynx clear without exudates. Moist mucosa NECK: Nontender, no stepoffs, Normal ROM, supple, no lymphadenopathy, JVD, or masses LUNGS: Breath sounds equal, clear to auscultation bilaterally. No wheezes, and no crackles HEART: Regular rate and rhythm, normal S1 and S2, no murmurs, rubs or gallops ABDOMEN: Soft, nontender, normoactive bowel sounds. No guarding, no rebound. No masses EXTREMITIES: Normal range of motion, no edema. No clubbing or cyanosis. No cords, erythema, or tenderness NEUROLOGICAL: Cranial nerves II through XII intact. 5/5 strength and sensation in all extremities, Normal speech, normal gait, normal cerebellar function SKIN: Warm, Dry, normal turgor, no rashes or lesions noted. """ - Medical Decision Making 02/06/18 14:04 77 F with diarrhea x 4 days. Was previously on clindamycin for cellulitis, so pt is at risk for C diff. Pt with benign abdominal exam. Will defer imaging at this time. - Labs, stool cultures - IVF 02/06/18 15:11 Labs unremarkable. Pt reassessed - feels much better after fluids. Tolerating PO. Pt with no additional episodes of diarrhea since 10AM today. Repeat abdominal exam still nontender. Pt to f/u with PMD tomorrow. Pt is well appearing, with normal vitals. Clinically stable for DC at this time. I discussed the physical exam findings, ancillary test results and final diagnoses with the patient. I answered all of the patient's questions. The patient was satisfied with the care received and felt comfortable with the discharge plan and treatment plan. The patient agrees to follow up with the primary care physician within 24-72 hours.
--- NOTE | 2018-02-06 14:07 | PDOC ---
History of Present Illness - General Chief Complaint: Diarrhea Stated Complaint: Diarrhea Time Seen by Provider: 02/06/18 12:43 History Source: Patient Exam Limitations: No Limitations - History of Present Illness Initial Comments: 02/06/18 14:06 Patient is a 77F with history of osteoporosis, primary biliary cirrhosis, chronic leg ulcers, HTN here today complaining of diarrhea for the past 4-5 days. Patient was admitted three months ago for cellulitis and was discharged with clindamycin. Antibiotic course was completed two months ago. Patient denies fevers, chills. Patient endorses associated nausea and decreased PO intake. Patient denies abdominal pain. Denies chest pain, shortness of breath. Patient endorses weakness. Past History - Past Medical History Allergies/Adverse Reactions: Allergies Allergy/AdvReac Type Severity Reaction Status Date / Time No Known Allergies Allergy Verified 02/06/18 12:37 Home Medications: Ambulatory Orders Losartan/Hydrochlorothiazide [Losartan-Hctz 100-25 mg Tab] 100 each PO DAILY Metoprolol Tartrate 50 mg PO DAILY 09/30/17 Ursodiol [Actigal -] 900 mg PO DAILY 09/30/17 Aspirin [ASA -] 81 mg PO DAILY 02/06/18 COPD: No DVT: No HTN: Yes - Surgical History Abdominal Surgery: Yes (HERNIA) GI Surgery: Yes (LIVER BIOPSY) - Immunization History Immunization Up to Date: Yes - Suicide/Smoking/Psychosocial Hx Smoking History: Never smoked Have you smoked in the past 12 months: No Information on smoking cessation initiated: No Hx Alcohol Use: No Drug/Substance Use Hx: No Substance Use Type: None Hx Substance Use Treatment: No Review of Systems - Review of Systems Comments:: 02/06/18 14:09 GENERAL/CONSTITUTIONAL: No fever or chills. + weakness. HEAD, EYES, EARS, NOSE AND THROAT: No change in vision. No sore throat. CARDIOVASCULAR: No chest pain or shortness of breath RESPIRATORY: No cough, wheezing, or hemoptysis. GASTROINTESTINAL: +nausea, diarrhea. No vomiting, constipation GENITOURINARY: No dysuria, frequency, or change in urination. MUSCULOSKELETAL: No joint or muscle swelling or pain. No neck or back pain. SKIN: No rash NEUROLOGIC: No headache, vertigo, loss of consciousness, or change in strength/ sensation. ENDOCRINE: No increased thirst. No abnormal weight change HEMATOLOGIC/LYMPHATIC: No anemia, easy bleeding, or history of blood clots. ALLERGIC/IMMUNOLOGIC: No hives or skin allergy. *Physical Exam - Vital Signs Last Vital Signs Temp Pulse Resp BP Pulse Ox 98.0 F 93 H 16 97/53 100 02/06/18 12:36 02/06/18 12:36 02/06/18 12:36 02/06/18 12:36 02/06/18 12:36 - Physical Exam Comments: 02/06/18 14:10 GENERAL: Awake, alert, and fully oriented, in no acute distress HEAD: No signs of trauma, normocephalic, atraumatic EYES: PERRLA, EOMI, sclera anicteric, conjunctiva clear ENT: Auricles normal inspection, hearing grossly normal, nares patent, oropharynx clear without exudates. Dry mucosa NECK: Normal ROM, supple, no lymphadenopathy, JVD, or masses LUNGS: No distress, speaks full sentences, clear to auscultation bilaterally HEART: Regular rate and rhythm, normal S1 and S2, no murmurs, rubs or gallops, peripheral pulses normal and equal bilaterally. ABDOMEN: Soft, nontender, normoactive bowel sounds. No guarding, no rebound. No masses EXTREMITIES: Chronic appearing wounds on lower extremities without discharge. NEUROLOGICAL: Cranial nerves II through XII grossly intact. Normal speech, normal gait, no focal sensorimotor deficits SKIN: Warm, Dry, normal turgor, no rashes or lesions noted. ED Treatment Course - LABORATORY CBC & Chemistry Diagram: 02/06/18 13:25 02/06/18 14:10 - ADDITIONAL ORDERS Additional order review: Laboratory Results 02/06/18 13:12 PT with INR 14.00 H INR 1.24 H 02/06/18 13:25 RBC 4.12 MCV 91.7 MCHC 33.4 RDW 13.9 MPV 8.4 - RADIOLOGY Radiology Studies Ordered: Category Date Time Status CHEST X-RAY PORTABLE* [RAD] Stat Radiology 02/06/18 13:13 Completed - Medications Given in the ED: ED Medications Discontinued Medications Generic Name Dose Route Start Last Admin Trade Name Freq PRN Reason Stop Dose Admin Ondansetron HCl 4 mg 02/06/18 13:13 02/06/18 13:24 Zofran Injection IVPUSH 02/06/18 13:14 4 mg ONCE ONE Administration Medical Decision Making - Medical Decision Making 02/06/18 14:10 Patient is 77F with history of osteoporosis, primary biliary cirrhosis, chronic leg ulcers, HTN here today complaining of diarrhea, weakness, decreased PO intake. Believe patient is dehydrated. DDx includes c diff, viral illness, electrolyte abnormalities. Will evaluate with cbc, cmp, trop, ekg, 02/06/18 14:57 CBC normal. CMP reassuring. Patient has not had bowel movement in the ED. Patient is tolerating PO, is much improved. Will discharge home with PCP follow up and return precautions. 02/06/18 15:21 EKG shows normal sinus rhythm with rate of 79. No st elevations/depressions. Normal intervals. No significant t wave abnormalities. *DC/Admit/Observation/Transfer Diagnosis at time of Disposition: Diarrhea - Discharge Dispostion Disposition: HOME Condition at time of disposition: Good Decision to Admit order: No - Referrals Referrals: Honorio Obando MD [Primary Care Provider] - - Patient Instructions Printed Discharge Instructions: DI for Diarrhea and Traveler's Diarrhea -- Adult Additional Instructions: You were seen today in the ED for diarrhea. Please return if you have any new, worsening or concerning symptoms, especially inability to eat or drink. Please attempt to drink plenty of fluids. Please follow up with your primary care physician in the next week. - Post Discharge Activity
[2018-02-06 14:44] LABS: ALBUMIN 2.3 g/dl (3.4-5.0); ANION GAP 8 (8-16); BILIRUBIN,TOTAL 0.5 mg/dL (0.2-1.0); BLOOD UREA NITROGEN 19 mg/dL (7-18); CALCIUM 7.6 mg/dL (8.5-10.1); CHLORIDE 97 mmol/L (98-107); CO2 27 mmol/L (21-32); CREATININE 0.9 mg/dL (0.55-1.02); GLUCOSE,RANDOM 94 mg/dL (74-106); POTASSIUM 3.3 mmol/L (3.5-5.1); SGOT/AST 21 U/L (15-37); SGPT/ALT 16 U/L (12-78); SODIUM 132 mmol/L (136-145); TOT PROT 5.9 g/dl (6.4-8.2)
[2018-02-06 14:47] LABS: ALK PHOS 74 U/L (45-117)
--- NOTE | 2018-02-07 12:34 | EKG ---
Test Reason : Blood Pressure : / mmHG Vent. Rate : 079 BPM Atrial Rate : 079 BPM P-R Int : 142 ms QRS Dur : 082 ms QT Int : 408 ms P-R-T Axes : 031 -04 016 degrees QTc Int : 467 ms NORMAL SINUS RHYTHM MODERATE VOLTAGE CRITERIA FOR LVH, MAY BE NORMAL VARIANT BORDERLINE ECG WHEN COMPARED WITH ECG OF 07-NOV-2017 18:02, NO SIGNIFICANT CHANGE WAS FOUND Confirmed by BERNADETTE FLORES MD ([id number]) on 02/07/2018 12:33:48 PM Referred By: Confirmed By:BERNADETTE FLORES MD
== END 2018-02-06 16:00 | disposition home or self-care (01) ==
LOC: JER 12:25
DX: R19.7 Diarrhea, unspecified (principal); I10 Essential (primary) hypertension; K74.5 Biliary cirrhosis, unspecified; M81.0 Age-related osteoporosis without current pathological fracture; L97.801 Non-pressure chronic ulcer of other part of unspecified lower leg limited to breakdown of skin; Z79.2 Long term (current) use of antibiotics; Z79.82 Long term (current) use of aspirin
CPT/HCPCS: 36415; 71045-TC-FY; 80053; 82550; 84484; 85027; 85610; 93005; 93010; 99284-25; J7030

== ENCOUNTER 2019-05-25 16:32 | Inpatient (IN) | payer OTHER ==
--- NOTE | 2019-05-25 16:59 | PDOC ---
Rapid Medical Evaluation Time Seen by Provider: 05/25/19 16:46 Medical Evaluation: Allergies Allergy/AdvReac Type Severity Reaction Status Date / Time No Known Allergies Allergy Verified 02/13/18 12:18 05/25/19 16:55 Pt c/o: recent dx with uri today, on amox, son states pt c/o sob 1 hr ago and used an alb inhaler x 2 with mod effect. pt states + cough sore throat and mild sob Patient on brief exam: coarse BS on end exp to right base, low grade temp orally 99.1 , hr 103 Patient ordered for: septic w/u , influenza swab collected Patient to proceed to the ED Discharge Disposition - Diagnosis Difficulty breathing, Weakness - Discharge Dispostion Disposition: HOME Condition at time of disposition: Improved - Referrals - Patient Instructions - Post Discharge Activity
--- NOTE | 2019-05-25 17:03 | PDOC ---
History of Present Illness - General Chief Complaint: Shortness of Breath Stated Complaint: BREATHING ISSUES/FLU Time Seen by Provider: 05/25/19 16:46 Past History - Past Medical History Allergies/Adverse Reactions: Allergies Allergy/AdvReac Type Severity Reaction Status Date / Time No Known Allergies Allergy Verified 05/25/19 17:21 Home Medications: Ambulatory Orders Losartan/Hydrochlorothiazide [Losartan-Hctz 100-25 mg Tab] 1 tab PO DAILY Ursodiol [Actigal -] 300 mg PO DAILY 09/30/17 Aspirin [ASA -] 81 mg PO DAILY 02/06/18 Amoxicillin - [Amoxicillin 500mg Capsule -] 500 mg PO BID 05/25/19 Metoprolol Succinate [Toprol Xl] 50 mg PO DAILY 05/25/19 COPD: No DVT: No HTN: Yes - Surgical History Abdominal Surgery: Yes (HERNIA) GI Surgery: Yes (LIVER BIOPSY) - Immunization History Immunization Up to Date: Yes - Psycho Social/Smoking Cessation Hx Smoking History: Never smoked Have you smoked in the past 12 months: No Hx Alcohol Use: No Drug/Substance Use Hx: No Substance Use Type: None Hx Substance Use Treatment: No ED Treatment Course - LABORATORY CBC & Chemistry Diagram: 05/26/19 06:10 05/26/19 06:10 Medical Decision Making - Medical Decision Making HPI: 79yo F with PMH of HTN, primary biliary cirrhosis, arrhythmia, asthma presenting with shortness of breath, weakness, and dizziness. Patient's son is at the bed side providing collateral history. He states they both have been ill with congestion, sore throat, and cough. The patient's cough is non-productive. They went to an urgent care yesterday and the patient was prescribed amoxicillin. About one hour prior to arrival, the patient started feeling acute short of breath. She also feels lightheadedness and weakness. Her son administered her late 's ventolin inhaler which helped somewhat. Patient has fever and chills. PCP: Dr. Obando ROS: Constitutional: +fever, +chills HEENT: +throat pain, no dysphagia Cardiovascular: no chest pain, no palpitations Respiratory: no cough, +shortness of breath Gastrointestinal: no abdominal pain, no nausea Genitourinary: no dysuria, no hematuria Musculoskeletal: no myalgia, no arthralgia Skin: no rash, no itching Neurologic: no headache, +weakness PE: General: Awake, alert, and fully oriented, in no acute distress Head: No signs of trauma Eyes: EOMI, sclera anicteric ENT: Moist mucus membranes Neck: Normal ROM, supple Lungs: Lungs with rales on the right Cardio: Regular rhythm, S1 and S2 present Abdomen: Soft, nontender Extremities: Normal range of motion, Distal pulses present SKIN: Warm, Dry, normal turgor Neurologic: Cranial nerves II through XII grossly intact. Normal speech ED Course/MDM: DDX including but not limited to SIRS, sepsis due to PNA/UTI/bacteremia, URI, influenza, ACS 05/25/19 17:09 Rectal temp 100.4 Tachycardic Sepsis oder set initiated Fluids Ofirmev 05/25/19 17:34 CBC WBC 7.5 K/mm3 (4.0-10.0) 05/25/19 17:03 RBC 3.94 M/mm3 (3.60-5.2) 05/25/19 17:03 Hgb 12.5 GM/dL (10.7-15.3) 05/25/19 17:03 Hct 38.1 % (32.4-45.2) 05/25/19 17:03 MCV 96.5 fl (80-96) H 05/25/19 17:03 MCH 31.8 pg (25.7-33.7) 05/25/19 17:03 MCHC 32.9 g/dl (32.0-36.0) 05/25/19 17:03 RDW 13.8 % (11.6-15.6) 05/25/19 17:03 Plt Count 212 K/MM3 (134-434) D 05/25/19 17:03 MPV 8.9 fl (7.5-11.1) 05/25/19 17:03 Absolute Neuts (auto) 5.3 K/mm3 (1.5-8.0) 05/25/19 17:03 Neutrophils % 70.9 % (42.8-82.8) 05/25/19 17:03 Lymphocytes % 17.5 % (8-40) D 05/25/19 17:03 Monocytes % 9.9 % (3.8-10.2) 05/25/19 17:03 Eosinophils % 0.9 % (0-4.5) 05/25/19 17:03 Basophils % 0.8 % (0-2.0) 05/25/19 17:03 Nucleated RBC % 0 % (0-0) 05/25/19 17:03 No leukocytosis CMP Sodium 139 mmol/L (136-145) 05/25/19 17:03 Potassium 3.5 mmol/L (3.5-5.1) 05/25/19 17:03 Chloride 101 mmol/L (98-107) 05/25/19 17:03 Carbon Dioxide 30 mmol/L (21-32) 05/25/19 17:03 Anion Gap 8 MMOL/L (8-16) 05/25/19 17:03 BUN 24.1 mg/dL (7-18) H 05/25/19 17:03 Creatinine 1.0 mg/dL (0.55-1.3) 05/25/19 17:03 Est GFR (CKD-EPI)AfAm 62.05 05/25/19 17:03 Est GFR (CKD-EPI)NonAf 53.54 05/25/19 17:03 Random Glucose 127 mg/dL (74-106) H 05/25/19 17:03 Lactic Acid 1.4 mmol/L (0.4-2.0) 05/25/19 17:03 Calcium 9.1 mg/dL (8.5-10.1) 05/25/19 17:03 Total Bilirubin 0.3 mg/dL (0.2-1) 05/25/19 17:03 AST 53 U/L (15-37) H 05/25/19 17:03 ALT 33 U/L (13-61) 05/25/19 17:03 Alkaline Phosphatase 96 U/L (45-117) 05/25/19 17:03 Troponin I < 0.02 ng/ml (0.00-0.05) 05/25/19 17:03 Total Protein 7.0 g/dl (6.4-8.2) 05/25/19 17:03 Albumin 3.4 g/dl (3.4-5.0) 05/25/19 17:03 Electrolytes unremarkable Normal Cr Lactate normal Tpn undetectable 05/25/19 18:28 Decision made to treat empirically with ceftriaxone and azithromycin 05/25/19 18:44 Patient signed out to Dr. Tsai and night team Pending UA 05/25/19 19:03 Discharge - Discharge Information Problems reviewed: Yes Clinical Impression/Diagnosis: Difficulty breathing, Weakness - Admission Yes - Follow up/Referral - Patient Discharge Instructions - Post Discharge Activity
[2019-05-25 17:31] LABS: BASO % 0.8 % (0-2.0); EOS % 0.9 % (0-4.5); HEMATOCRIT 38.1 % (32.4-45.2); HEMOGLOBIN 12.5 GM/dL (10.7-15.3); LYMPH % 17.5 % (8-40); MCH 31.8 pg (25.7-33.7); MCHC 32.9 g/dl (32.0-36.0); MEAN CELL VOLUME 96.5 fl (80-96); MEAN PLT VOLUME 8.9 fl (7.5-11.1); MONO % 9.9 % (3.8-10.2); NEUT % 70.9 % (42.8-82.8); PLATELET COUNT 212 K/MM3 (134-434); RBC 3.94 M/mm3 (3.60-5.2); RDW 13.8 % (11.6-15.6); WHITE BLOOD COUNT 7.5 K/mm3 (4.0-10.0)
[2019-05-25 17:34] LABS: VENOUS PC02 52.4 mmHg (38-52)
[2019-05-25] MEDS ORDERED: ACETAMINOPHEN 1000 MG/100 ML VIAL (NON FORMULARY) IVPB ONE (17:34)
[2019-05-25] MEDS ORDERED: SODIUM CHLORIDE 1,000 ML IV STA (17:34)
[2019-05-25 17:36] LABS: VENOUS PO2 < 49 mmHg (28-48)
[2019-05-25] MEDS ORDERED: ACETAMINOPHEN INJECTION 100 ML IVPB ONE (17:45)
[2019-05-25 17:49] LABS: INR 1.05 (0.83-1.09); PROTHROMBIN TIME (PATIENT) 12.4 SEC (9.7-13.0)
[2019-05-25 17:52] LABS: ACTIVATED PTT 33.3 SECONDS (25.2-36.5)
[2019-05-25 18:04] LABS: ALBUMIN 3.4 g/dl (3.4-5.0); ALK PHOS 96 U/L (45-117); ANION GAP 8 MMOL/L (8-16); BILIRUBIN,TOTAL 0.3 mg/dL (0.2-1); BLOOD UREA NITROGEN 24.1 mg/dL (7-18); CALCIUM 9.1 mg/dL (8.5-10.1); CHLORIDE 101 mmol/L (98-107); CO2 30 mmol/L (21-32); GLUCOSE,RANDOM 127 mg/dL (74-106); POTASSIUM 3.5 mmol/L (3.5-5.1); SGOT/AST 53 U/L (15-37); SGPT/ALT 33 U/L (13-61); SODIUM 139 mmol/L (136-145)
[2019-05-25] MEDS ORDERED: CEFTRIAXONE 1,000 MG in DEXTROSE 5%-WATER - 50 ML IVPB ONE (18:42)
[2019-05-25] MEDS ORDERED: AZITHROMYCIN IVPB 500 MG in DEXTROSE 5%-WATER - 250 ML IVPB ONE (18:42)
[2019-05-25] MEDS ORDERED: CEFTRIAXONE 1 GM/50 ML BAG ONE (18:55)
[2019-05-25 19:22] LABS: URINE APPEARANCE CLEAR; URINE BILIRUBIN NEGATIVE (NEGATIVE); URINE COLOR YELLOW; URINE GLUCOSE (UA) NEGATIVE (NEGATIVE); URINE KETONE NEGATIVE (NEGATIVE)
[2019-05-25 19:23] LABS: URINE LEUK ESTERASE 2+ (NEGATIVE)
[2019-05-25 19:24] LABS: URINE NITRITE NEGATIVE (NEGATIVE); URINE PROTEIN NEGATIVE (NEGATIVE)
[2019-05-25 19:25] LABS: URINE UROBILINOGEN 0.2 mg/dL (0.2-1.0)
[2019-05-25] MEDS ORDERED: AZITHROMYCIN IVPB 500 MG/250 ML BAG IVPB ONE (20:26)
--- NOTE | 2019-05-25 21:09 | HP ---
Admitting History and Physical - Primary Care Physician PCP: - Admission Chief Complaint: sob, productive cough History of Present Illness: 79 year old female with PMH of HTN, asthma, primary biliary cirrhosis, arrhythmia, arrived to ED with complains of shortness of breath, weakness, and dizziness. Son at bedside with similar symptoms, states they both have been ill , patient with congestion, sore throat, and cough. Patient went to urgent care yesterday was given antibiotics (prescribed amoxicillin). Prior to arriving to ED patient was noted with acute short of breath,dizziness, son gave albuterol x2 with little relief. Patient noted with fever, denies CP, headache, N/V, constipation, diarrhea. History Source: Patient, Family Member Limitations to Obtaining History: No Limitations - Past Medical History Cardiovascular: Yes: HTN Pulmonary: Yes: Asthma Hepatobiliary: Yes: Cirrhosis Rheumatology: Yes: Other (osteoporosis) - Past Surgical History Past Surgical History: Yes: Cataract Removal, Hernia Repair - Smoking History Smoking history: Never smoked Have you smoked in the past 12 months: No - Alcohol/Substance Use Hx Alcohol Use: No History of Substance Use: reports: None - Social History Usual Living Arrangement: Yes: With Child ADL: Family Assistance History of Recent Travel: No Home Medications - Allergies Allergies/Adverse Reactions: Allergies Allergy/AdvReac Type Severity Reaction Status Date / Time No Known Allergies Allergy Verified 05/25/19 17:21 - Home Medications Home Medications: Ambulatory Orders Losartan/Hydrochlorothiazide [Losartan-Hctz 100-25 mg Tab] 1 tab PO DAILY Ursodiol [Actigal -] 300 mg PO DAILY 09/30/17 Aspirin [ASA -] 81 mg PO DAILY 02/06/18 Amoxicillin - [Amoxicillin 500mg Capsule -] 500 mg PO BID 05/25/19 Metoprolol Succinate [Toprol Xl] 50 mg PO DAILY 05/25/19 Family Medical History Family Hx Cardiac Disorders: Son (HTN) Review of Systems - Review of Systems Constitutional: reports: Chills, Fever Eyes: reports: No Symptoms HENT: reports: Throat Pain Neck: reports: No Symptoms Cardiovascular: reports: No Symptoms Respiratory: reports: Cough, SOB Gastrointestinal: reports: No Symptoms Genitourinary: reports: No Symptoms Breasts: reports: No Symptoms Reported Musculoskeletal: reports: No Symptoms Integumentary: reports: No Symptoms Neurological: reports: No Symptoms Endocrine: reports: No Symptoms Hematology/Lymphatic: reports: No Symptoms Psychiatric: reports: No Symptoms Physical Examination Vital Signs: Vital Signs Temperature 99 F 05/25/19 19:50 Pulse Rate 69 05/25/19 19:50 Respiratory Rate 22 H 05/25/19 19:50 Blood Pressure 152/68 05/25/19 19:50 O2 Sat by Pulse Oximetry (%) 100 05/25/19 19:50 Constitutional: Yes: Well Nourished, Calm Eyes: Yes: Conjunctiva Clear, EOM Intact HENT: Yes: Atraumatic, Normocephalic Neck: Yes: Supple, Trachea Midline Cardiovascular: Yes: Regular Rate and Rhythm Respiratory: Yes: Regular, CTA Bilaterally, Rales Gastrointestinal: Yes: Normal Bowel Sounds, Soft Musculoskeletal: Yes: WNL Edema: No Peripheral Pulses WNL: Yes Neurological: Yes: Alert, Oriented Labs: CBC, BMP 05/25/19 17:03 05/25/19 17:03 Imaging - Results Chest X-ray: Report Reviewed (cbc unremarkable, lactcic wnl Trop negative UA: 2 +leukocyte Rapid influenza A &B: negative) X-ray: Report Reviewed (CXR: no acute infiltrate (my reading)) Problem List - Problems (1) Acute asthmatic bronchitis Code(s): J45.909 - UNSPECIFIED ASTHMA, UNCOMPLICATED (2) Hypertension Code(s): I10 - ESSENTIAL (PRIMARY) HYPERTENSION (3) Primary biliary cirrhosis Code(s): K74.3 - PRIMARY BILIARY CIRRHOSIS Assessment/Plan 79 year old female with PMH of HTN, asthma, primary biliary cirrhosis, arrhythmia, arrived to ED with complains of shortness of breath, weakness, and dizziness. #Acute asthmatic bronchitis - initial has fever of 100.4 - s/p Tylenol 99F - In ED worked up for sepsis ? pneumonia --> given Tylenol IV, 1L NS, Azithromax & cefetrixone - wbc: 7.4, lactitic acid:wnl - PCo2: 52.4, Hco3: 31.9, PH: wnl - follow up blood and urine cx - Influenza A & B negative - continue with Tylenol q 4 hours PRN - continue with PO Zithromax 500mg daily for 3 days - Continue with nebulizer - Continue with PO Prednisone - continue with O2 via NC - follow up repeat cbc, bmp in AM # HTN - Continue with Losartan/Hydrochlorothiazide 100 each PO DAILY - Continue with Metoprolol Tartrate 50 mg PO DAILY # Primary biliary cirrhosis AST: 53, ALT: wnl - Ursodiol 900 mg PO DAILY Diet: Low sodium diet DVT PPX: Heparin SQ Visit type - Emergency Visit Emergency Visit: Yes ED Registration Date: 05/25/19 Care time: The patient presented to the Emergency Department on the above date and was hospitalized for further evaluation of their emergent condition. - New Patient This patient is new to me today: Yes Date on this admission: 05/25/19 - Critical Care Critical Care patient: No
[2019-05-25] MEDS ORDERED: ACETAMINOPHEN 325 MG TABLET (FP) PO PRN (21:54)
[2019-05-25] MEDS ORDERED: SODIUM CHLORIDE 1,000 ML IV SCH (22:00)
[2019-05-25] MEDS ORDERED: guaiFENesin 200 MG/10 ML 10 ML UNIT-DOSE CUPS PO PRN (22:01)
[2019-05-25] MEDS: HEPARIN NA (PORCINE) 5,000 UNITS/ML 1ML VIAL SQ SCH (22:30)
[2019-05-26] MEDS ORDERED: OXYMETAZOLINE 0.05% NASAL SOLUTION 15 ML BOTTLE NS PRN (01:51)
[2019-05-26 07:05] LABS: BASO % 0.6 % (0-2.0); EOS % 0.8 % (0-4.5); HEMATOCRIT 35.5 % (32.4-45.2); HEMOGLOBIN 11.9 GM/dL (10.7-15.3); LYMPH % 14.7 % (8-40); MCH 32.5 pg (25.7-33.7); MCHC 33.7 g/dl (32.0-36.0); MEAN CELL VOLUME 96.4 fl (80-96); MEAN PLT VOLUME 8.7 fl (7.5-11.1); MONO % 11.8 % (3.8-10.2); NEUT % 72.1 % (42.8-82.8); PLATELET COUNT 178 K/MM3 (134-434); RBC 3.68 M/mm3 (3.60-5.2); RDW 13.9 % (11.6-15.6); WHITE BLOOD COUNT 7.6 K/mm3 (4.0-10.0)
[2019-05-26 07:15] LABS: BLOOD UREA NITROGEN 18.2 mg/dL (7-18); CALCIUM 8.6 mg/dL (8.5-10.1); CREATININE 0.9 mg/dL (0.55-1.3); POTASSIUM 3.8 mmol/L (3.5-5.1)
[2019-05-26] MEDS ORDERED: ALBUTEROL SO4 0.083% IH SOL 2.5 MG/3 ML VIAL.NEB. NEB ONE ×3 (09:42→16:16)
[2019-05-26] MEDS ORDERED: IPRATROPIUM BR 0.02% 0.5 MG/2.5 ML VIAL.NEB. NEB ONE ×3 (09:43→16:16)
[2019-05-26] MEDS ORDERED: AZITHROMYCIN 500 MG TABLET PO SCH (10:00)
[2019-05-26] MEDS: IPRATROPIUM BR 0.02% 0.5 MG/2.5 ML VIAL.NEB. NEB SCH ×3 (10:00→16:24)
[2019-05-26] MEDS ORDERED: AZITHROMYCIN IVPB 500 MG in DEXTROSE 5%-WATER - 250 ML IVPB SCH (10:00)
[2019-05-26] MEDS: ALBUTEROL SO4 0.083% IH SOL 2.5 MG/3 ML VIAL.NEB. NEB SCH ×3 (10:00→16:24)
[2019-05-26] MEDS: predniSONE 20 MG TABLET (UD) PO SCH (10:45)
[2019-05-26] MEDS: HEPARIN NA (PORCINE) 5,000 UNITS/ML 1ML VIAL SQ SCH ×2 (10:45→21:38)
--- NOTE | 2019-05-26 12:37 | PN ---
Progress Note (short form) - Note Progress Note: Pt seen/ examined in Er chart reviewed. feels better still congested throat low grade temp Vital Signs Temp 99.1 F 05/26/19 07:15 Pulse 84 05/26/19 07:15 Resp 21 H 05/26/19 07:15 BP 113/62 05/26/19 07:15 Pulse Ox 97 05/26/19 07:15 Intake & Output 05/25/19 05/26/19 05/26/19 23:59 11:59 23:59 Intake Total 1100 Output Total 200 Balance 900 Weight 125 lb Intake: IV 1000 Normal Saline - 1,000 ml 1000 @ 1000 mls/hr IV ASDIR STA Rx#:[id number] IVPB 100 Output: Urine 200 Void 200 Other: Voiding Method Toilet Height 5 ft Body Mass Index (BMI) 24.4 Active Medications Acetaminophen (Tylenol -) 650 mg PO Q4H PRN PRN Reason: PAIN OR FEVER Albuterol Sulfate (Ventolin 0.083% Nebulizer Soln -) 1 amp [facility] RQID [facility] Last Admin: 05/26/19 11:54 Dose: Not Given Guaifenesin (Robitussin -) 10 ml PO Q6H PRN PRN Reason: COUGH Heparin Sodium (Porcine) (Heparin -) 5,000 unit SQ BID [facility] Last Admin: 05/26/19 10:45 Dose: 5,000 unit Azithromycin 500 mg/ Dextrose 250 mls @ 250 mls/hr IVPB DAILY [facility] Ipratropium [place] (Atrovent 0.02% Nebulizer -) 1 amp [facility] RQID [facility] Last Admin: 05/26/19 11:54 Dose: Not Given Oxymetazoline HCl (Afrin -) 2 spray NS BID PRN PRN Reason: NASAL CONGESTION Stop: 05/28/19 01:50 Prednisone (Deltasone -) 40 mg PO DAILY [facility] Stop: 05/31/19 23:59 Last Admin: 05/26/19 10:45 Dose: 40 mg CBC, BMP 05/26/19 06:10 05/26/19 06:10 Physical Examination Constitutional: Yes: Well Nourished, Calm Eyes: Yes: Conjunctiva Clear, EOM Intact HENT: Yes: Atraumatic, Normocephalic. Congested throat. Neck: Yes: Supple, Trachea Midline Cardiovascular: Yes: Regular Rate and Rhythm Respiratory: Yes: Regular, CTA Bilaterally, Gastrointestinal: Yes: Normal Bowel Sounds, Soft Musculoskeletal: Yes: WNL Edema: No Peripheral Pulses WNL: Yes Neurological: Yes: Alert, Oriented a/p Acute Bronchitis change- i/v - zithromax continue prednisone d/c fluids d/w son as well as RN Anticipate better in 1-2 days Problem List - Problems (1) Acute asthmatic bronchitis Code(s): J45.909 - UNSPECIFIED ASTHMA, UNCOMPLICATED (2) Hypertension Code(s): I10 - ESSENTIAL (PRIMARY) HYPERTENSION (3) Primary biliary cirrhosis Code(s): K74.3 - PRIMARY BILIARY CIRRHOSIS
[2019-05-26] MEDS ORDERED: AZITHROMYCIN IVPB 500 MG/250 ML BAG IVPB ONE (12:46)
--- NOTE | 2019-05-26 14:31 | EKG ---
Test Reason : Blood Pressure : / mmHG Vent. Rate : 103 BPM Atrial Rate : 103 BPM P-R Int : 116 ms QRS Dur : 076 ms QT Int : 328 ms P-R-T Axes : 017 -10 024 degrees QTc Int : 429 ms POOR DATA QUALITY, INTERPRETATION MAY BE ADVERSELY AFFECTED SINUS TACHYCARDIA POSSIBLE LEFT ATRIAL ENLARGEMENT LEFT VENTRICULAR HYPERTROPHY ABNORMAL ECG WHEN COMPARED WITH ECG OF 13-FEB-2018 13:42, NO SIGNIFICANT CHANGE WAS FOUND Confirmed by KAYLA HALEY MD ([id number]) on 05/26/2019 2:31:22 PM Referred By: Confirmed By:KAYLA HALEY MD
[2019-05-26 20:44] VITALS: BMI 23.2
[2019-05-27 03:16] VITALS: TEMP 97.7
[2019-05-27] MEDS: IPRATROPIUM BR 0.02% 0.5 MG/2.5 ML VIAL.NEB. NEB SCH (09:52)
[2019-05-27] MEDS: ALBUTEROL SO4 0.083% IH SOL 2.5 MG/3 ML VIAL.NEB. NEB SCH (09:53)
[2019-05-27] MEDS: predniSONE 20 MG TABLET (UD) PO SCH (09:59)
[2019-05-27] MEDS: HEPARIN NA (PORCINE) 5,000 UNITS/ML 1ML VIAL SQ SCH (09:59)
[2019-05-27] MEDS ORDERED: AZITHROMYCIN IVPB 500 MG/250 ML BAG IVPB SCH (10:00)
--- NOTE | 2019-05-27 11:39 | DS ---
Physical Examination Vital Signs: Vital Signs Temperature 97.7 F 05/27/19 05:02 Pulse Rate 70 05/27/19 05:02 Respiratory Rate 20 05/27/19 05:02 Blood Pressure 120/63 05/27/19 05:02 O2 Sat by Pulse Oximetry (%) 98 05/26/19 20:22 Findings/Remarks: pt seen/ examined feels and looks much better denies pain cough improved afebrile Constitutional: Yes: No Distress, Calm Eyes: Yes: Conjunctiva Clear HENT: Yes: Other (much improved) Neck: Yes: Supple Cardiovascular: Yes: Regular Rate and Rhythm Respiratory: Yes: CTA Bilaterally Gastrointestinal: Yes: Soft Edema: No Neurological: Yes: Alert Labs: CBC, BMP 05/26/19 06:10 05/26/19 06:10 Discharge Summary Problems reviewed: Yes Reason For Visit: DIFFICULTY BREATHING, SYSTEMIC INFLAMMATORY RESPON Current Active Problems Acute asthmatic bronchitis (Acute) Acute bronchitis (Acute) Difficulty breathing (Acute) Weakness (Acute) Hospital Course: 79 year old female with PMH of HTN, asthma, primary biliary cirrhosis, arrhythmia,-- admitted for Acute Bronchitis treated with prednisone/ abx- Zithromax much better pt was already on abx - before coming to er --Amoxicillin Influeza _ve stable for d/c will d/c on Z pack d/c prednisone f/u with pmd next week d/w Rn also Condition: Improved - Instructions Referrals: Honorio Obando MD [Primary Care Provider] - Disposition: HOME - Home Medications Comprehensive Discharge Medication List: Ambulatory Orders Losartan/Hydrochlorothiazide [Losartan-Hctz 100-25 mg Tab] 1 tab PO DAILY Ursodiol [Actigal -] 300 mg PO DAILY 09/30/17 Aspirin [ASA -] 81 mg PO DAILY 02/06/18 Metoprolol Succinate [Toprol Xl] 50 mg PO DAILY 05/25/19 Acetaminophen [Tylenol .Regular Strength -] 650 mg PO Q4H PRN tablet 05/27/19 Albuterol Sulfate Inhaler - [Ventolin HFA Inhaler -] 1 puff IH Q6H PRN #1 inhaler 05/27/19 Azithromycin [Zithromax] 500 mg PO DAILY #3 tablet 05/27/19 Guaifenesin [Robitussin -] 10 ml PO Q6H PRN cup 05/27/19
[2019-05-27 12:43] VITALS: BP 116/64; PULSE 72
== END 2019-05-27 13:17 | disposition home or self-care (01) | DRG 203 ==
LOC: JER 16:32 → JERBED 18:49 → J6S 05-26 18:25
PROVIDERS: ADMIT Internal Medicine; ATTEND Internal Medicine
DX: J20.9 Acute bronchitis, unspecified (principal); R53.1 Weakness; I10 Essential (primary) hypertension; J45.909 Unspecified asthma, uncomplicated; K74.5 Biliary cirrhosis, unspecified; R06.02 Shortness of breath; R05 Cough; R42 Dizziness and giddiness; J02.9 Acute pharyngitis, unspecified; R50.9 Fever, unspecified; I49.9 Cardiac arrhythmia, unspecified
CPT/HCPCS: 36415; 71045-TC-FY; 80048; 80053; 81003; 82803; 83605; 84484; 85025; 85610; 85730; 87040; 87086; 87804; 93005; 93010; 94640; 99285-25; J0131; J1644; J7030

== ENCOUNTER 2019-09-20 22:08 | Inpatient (IN) | payer OTHER ==
--- NOTE | 2019-09-21 01:27 | PDOC ---
History of Present Illness - General Chief Complaint: Wound Stated Complaint: WOUND CHECK Time Seen by Provider: 09/21/19 01:18 History Source: Patient Exam Limitations: No Limitations - History of Present Illness Initial Comments: Kely Zavala is a 79 yo F w a hx of HTN, primary biliary cirrhosis, arrhythmia , and asthma who presents to the ER stating her BP is high, her face has been occassionally turning red, she is short of breath, and has a wound on her right lower extremity. Patient's son is at the bed side providing collateral history. Son states she usually does not complain and he is worried something is very wrong with his mother. She has been feeling lightheaded and overall particularly weak lately. The patient states she has these moments where she becomes extremely short of breath and has a hard time breathing. PCP: Dr. Obando PSH: Cataract Removal, Hernia Repair Social Hx: Denies current smoking, drinking, or substance usage. Son helps take care of patient. Allergies: NKA, NKDA Past History - Past Medical History Allergies/Adverse Reactions: Allergies Allergy/AdvReac Type Severity Reaction Status Date / Time No Known Allergies Allergy Verified 09/20/19 22:50 Home Medications: Ambulatory Orders Losartan/Hydrochlorothiazide [Losartan-Hctz 100-25 mg Tab] 1 tab PO DAILY Ursodiol [Actigal -] 300 mg PO DAILY 09/30/17 Metoprolol Succinate [Toprol Xl] 50 mg PO DAILY 05/25/19 Asthma: Yes COPD: No DVT: No HTN: Yes Liver Disease: Yes (Cirrhosis) - Surgical History Abdominal Surgery: Yes (HERNIA) GI Surgery: Yes (LIVER BIOPSY) - Immunization History Immunization Up to Date: Yes - Psycho Social/Smoking Cessation Hx Smoking History: Never smoked Have you smoked in the past 12 months: No Information on smoking cessation initiated: No Hx Alcohol Use: No Drug/Substance Use Hx: No Substance Use Type: None Hx Substance Use Treatment: No Review of Systems - Review of Systems Able to Perform ROS?: Yes Comments:: CONSTITUTIONAL: Present: Fatigue Absent: fever, no chills EYES: Absent: visual changes ENT: Absent: ear pain, no sore throat CARDIOVASCULAR: Present: chest pain, palpitations RESPIRATORY: Present: SOB Absent: cough GI: Present: Nausea Absent: abdominal pain, no vomiting, no constipation, no diarrhea GENITOURINARY: Absent: dysuria, no frequency, no hematuria MUSKULOSKELETAL: Absent: back pain, no arthralgia, no myalgia SKIN: Absent: rash NEURO: Absent: headache *Physical Exam - Vital Signs Last Vital Signs Temp Pulse Resp BP Pulse Ox 97.4 F L 81 17 104/64 100 09/20/19 22:47 09/20/19 22:47 09/20/19 22:47 09/20/19 22:47 09/20/19 22:47 - Physical Exam GENERAL: Well-appearing, well-nourished. No apparent distress. HEENT: Normocephalic, atraumatic. PERRL, EOM intact. CARDIOVASCULAR: Irregularly irregular. Normal S1, S2. PULMONARY: There are bilateral rales throughout all lung pa. Moderate respiratory distress. ABDOMEN: Soft, non-distended, non-tender. EXTREMITIES: There is 1+ edema bilaterally. There is a small erythematous rash on the right lower leg no discharge, no tender to palpation. SKIN: Warm, dry. NEUROLOGICAL: No focal neurological deficits. ED Treatment Course - LABORATORY CBC & Chemistry Diagram: 09/21/19 02:50 09/21/19 02:50 Medical Decision Making - Medical Decision Making Kely Zavala is a 79 yo F w a hx of HTN, primary biliary cirrhosis, arrhythmia , and asthma who presents to the ER stating her BP is high, her face has been occassionally turning red, she is short of breath, and has a wound on her right lower extremity. Patient's son is at the bed side providing collateral history. Son states she usually does not complain and he is worried something is very wrong with his mother. She has been feeling lightheaded and overall particularly weak lately. The patient states she has these moments where she becomes extremely short of breath and has a hard time breathing. Vital Signs Temp Pulse Resp BP Pulse Ox 97.4 F L 90 22 H 131/82 96 09/20/19 22:47 09/21/19 02:13 09/21/19 02:13 09/21/19 02:23 09/21/19 02:13 DDx IBNLT: A-fib w rvr, ACS, heart failure, PNA, respiratory distress EKG: Patient has A-fib w/ RVR MDM: New A-fib, rales in b/l lung pa, patient is SOB - treating with 5 mg lopressor - No response to original 5 mg of lopressor - Repeat 5 mg lopressor - Patient's rate now controlled - 25 mg metoprolol PO given to patient - Patient continues to jump into the 180's and becomes extremely sort of breath - Will start a diltiazem drip to control her rate Plan: Labs, Urine, CXR, admission to ICU if requiring Drip vs Tele if maintained on metoprolol Labs: Elevated BUN and Bnp - Symptoms controlled with diltiazem drip at 8 - Drip at 5 patient was not controlled, drip at 10 patient became tapan. Drip at 8 appears to be the ron spot Discharge - Discharge Information Problems reviewed: Yes Clinical Impression/Diagnosis: Atrial fibrillation with RVR, SOB (shortness of breath), Elevated brain natriuretic peptide (BNP) level Condition: Stable - Admission Yes - Follow up/Referral - Patient Discharge Instructions - Post Discharge Activity
--- NOTE | 2019-09-21 01:31 | PDOC ---
Documentation entered by Lee Escamilla SCRIBE, acting as scribe for Massiel Bowen DO. Massiel Bowen DO: This documentation has been prepared by the Andi ren Elijah, SCRIBE, under my direction and personally reviewed by me in its entirety. I confirm that the documentation accurately reflects all work, treatment, procedures, and medical decision making performed by me. Attending Attestation - Resident Resident Name: Hugh Kerns - ED Attending Attestation I have performed the following: I have examined & evaluated the patient, The case was reviewed & discussed with the resident, I agree w/resident's findings & plan - HPI HPI: 09/21/19 01:36 Patient is a 79 year old female with a significant past medical history of osteoporosis, biliary cirrhosis, chronic leg ulcers, and hypertension who presents today with a wound on her leg over the course of the last x2 days. As per patient's son, patient has had an open wound and associated symptoms of chest pressure, SOB, and dizziness. Patient has only been noted to recently be able to take a few steps at a time. Patient denies any dysuria. Allergies: NKA PCP: Dr. Obando - Physicial Exam PE: 09/21/19 01:41 Constitutional: Awake, alert, oriented. No acute distress. Head: Normocephalic. Atraumatic Eyes: PERRL. EOMI. Conjunctivae are not pale. ENT: Mucous membranes are moist and intact. Posterior pharynx without exudates or erythema. Uvula midline. Neck: Supple. Full ROM. No lymphadenopathy. Cardiovascular: Regular rate. Regular rhythm. S1, S2 regular. Distal pulses are 2+ and symmetric. Pulmonary/Chest: +Rales No rhonchi. Abdominal: Soft and non-distended. There is no tenderness. No rebound, guarding or rigidity. No organomegaly. No palpable masses. Good bowel sounds. Back: No CVA tenderness. Musculoskeletal: +Trace Edema B/l. +chronic venous stasis b/l Legs. +Mild Erythema. No cyanosis. No clubbing. Radial/pedal pulses are intact and 2+ bilaterally Skin: +Dry Skin. No petechiae. No purpura. Neurological: Alert and oriented to person, place, and time. Cranial nerves II -XII are grossly intact. Normal speech. Strength is grossly symmetric. No sensory deficits. Psychiatric: Good eye contact. Normal interaction, affect and behavior. - Medical Decision Making 09/21/19 01:30 a/p: 79yo female with sob, cp, and skin sloughing to the RLE -son concerned for a wound -mild erythema to RLE without warmth -trace edema to b/l LE -pt with hx of cirrhosis -rales on exam -will send labs, ekg, cxr -will most likely need admission for pna vs chf/volume overload 09/21/19 02:18 pt going into afib w rvr and then breaks to sinus rhythm-during RVR episodes pt had a syncopal episode lopressor 5mg iv given and Hr improved hr went up again, another 5mg lopressor given, will give po lopressor pt will need admission for afib rvr 09/21/19 02:20 pt signed out pending labs and admisson Heart Score/ECG Review - ECG Intrepretation Comment:: 09/21/19 02:19 afib at 151, baseline artifact, lvh, nl axis, no acute st/t wave findings
[2019-09-21] MEDS ORDERED: METOPROLOL TARTRATE 5 MG/5 ML VIAL ONE ×2 (02:04→02:15)
[2019-09-21] MEDS ORDERED: METOCLOPRAMIDE HCL INJECTION 10 MG/2 ML VIAL IVPUSH ONE (02:14)
[2019-09-21] MEDS ORDERED: METOPROLOL TARTRATE 25 MG TABLET (FP) PO ONE (02:16)
[2019-09-21] MEDS ORDERED: METOPROLOL TARTRATE 5 MG/5 ML VIAL IVPUSH ONE ×2 (02:16→02:17)
[2019-09-21] MEDS ORDERED: METOPROLOL TARTRATE 25 MG TABLET (FP) ONE (02:21)
[2019-09-21] MEDS ORDERED: DILTIAZEM INJECTION 125 MG in SODIUM CHLORIDE 100 ML IVPB SCH (03:15)
[2019-09-21 03:22] LABS: BASO % 0.8 % (0-2.0); EOS % 1.3 % (0-4.5); HEMATOCRIT 39.6 % (32.4-45.2); HEMOGLOBIN 13.5 GM/dL (10.7-15.3); LYMPH % 39.1 % (8-40); MCH 32.3 pg (25.7-33.7); MEAN CELL VOLUME 94.9 fl (80-96); MEAN PLT VOLUME 9.6 fl (7.5-11.1); MONO % 10.1 % (3.8-10.2); NEUT % 48.7 % (42.8-82.8); PLATELET COUNT 194 K/MM3 (134-434); RBC 4.17 M/mm3 (3.60-5.2)
[2019-09-21] MEDS ORDERED: dilTIAZem HCL 50 MG/10 ML - 10 ML VIAL ONE (03:28)
[2019-09-21] MEDS ORDERED: dilTIAZem HCL 125 MG/25 ML - 25 ML VIAL ONE (03:28)
[2019-09-21 03:29] LABS: INR 1.06 (0.83-1.09); PROTHROMBIN TIME (PATIENT) 12.5 SEC (9.7-13.0)
[2019-09-21 03:31] LABS: ACTIVATED PTT 32.4 SECONDS (25.2-36.5)
[2019-09-21 03:37] LABS: ALBUMIN 3.4 g/dl (3.4-5.0); BILIRUBIN,TOTAL 0.5 mg/dL (0.2-1); BLOOD UREA NITROGEN 27.8 mg/dL (7-18); POTASSIUM 3.4 mmol/L (3.5-5.1); TOT PROT 7.4 g/dl (6.4-8.2)
[2019-09-21] MEDS ORDERED: FUROSEMIDE 40 MG/4 ML INJECTABLE VIAL IVPUSH ONE (04:10)
[2019-09-21] MEDS ORDERED: MAGNESIUM SULF 50% (8.12 MEQ/2 ML-1 GM VIAL) IVPB ONE (04:34)
--- NOTE | 2019-09-21 04:42 | HP ---
Admitting History and Physical - Primary Care Physician PCP: Honorio Obando - Admission Chief Complaint: SOB, Right Leg Wound History of Present Illness: This is a 79 y/o woman with a significant medical history of HTN, Biliary Cirrhosis, Arrhythmia, Asthma. Who presents to the ED with her son for SOB and dizziness. Patient is a poor historian due to clinical condition. Her son provided HPI. The son reports that his mother was receiving wound care at the wound center with Dr. Yoder. He noted that her lower extremities were swelling. He reports that her SOB worsened at rest or on exertion. Per the son, the patient denies fever, chills, dizziness, MEDRANO, CP, palpitations, AP, N/V/D, constipation, dysuria. ED course was noted for: (1) EKG- Afib with RVR (2) Cardizem Drip- titrated for rate control (3) BNP- 1687 (4) Mg 1.4 (5) Ammonia Level 10.30 History Source: Family Member Limitations to Obtaining History: Clinical Condition, Poor Historian - Past Medical History Cardiovascular: Yes: HTN, Other (arrhythmia) Pulmonary: Yes: Asthma Hepatobiliary: Yes: Cirrhosis Rheumatology: Yes: Other (osteoporosis) - Past Surgical History Past Surgical History: Yes: Cataract Removal, Hernia Repair - Smoking History Smoking history: Never smoked Have you smoked in the past 12 months: No - Alcohol/Substance Use Hx Alcohol Use: No History of Substance Use: reports: None - Social History Usual Living Arrangement: Yes: With Child ADL: Family Assistance History of Recent Travel: No Home Medications - Allergies Allergies/Adverse Reactions: Allergies Allergy/AdvReac Type Severity Reaction Status Date / Time No Known Allergies Allergy Verified 09/20/19 22:50 - Home Medications Home Medications: Ambulatory Orders Losartan/Hydrochlorothiazide [Losartan-Hctz 100-25 mg Tab] 1 tab PO DAILY Ursodiol [Actigal -] 300 mg PO DAILY 09/30/17 Metoprolol Succinate [Toprol Xl] 50 mg PO DAILY 05/25/19 Family Medical History Family History: Unable to Obtain Family Hx Coronary Artery Disease: Son (HTN) Review of Systems Unable to obtain ROS, reason: Clinical Condition Physical Examination Vital Signs: Vital Signs Temperature 97.4 F L 09/20/19 22:47 Pulse Rate 62 09/21/19 04:30 Respiratory Rate 20 09/21/19 04:30 Blood Pressure 132/80 09/21/19 04:30 O2 Sat by Pulse Oximetry (%) 99 09/21/19 04:30 Constitutional: Yes: No Distress, Calm Eyes: Yes: WNL, Conjunctiva Clear, EOM Intact, PERRL HENT: Yes: WNL, Atraumatic, Normocephalic Neck: Yes: WNL, Supple, Trachea Midline Cardiovascular: Yes: Pulse Irregular, S1, S2 Respiratory: Yes: Diminished, On Nasal O2, Rales Gastrointestinal: Yes: Normal Bowel Sounds, Soft ...Rectal Exam: Yes: Deferred Renal/: Yes: WNL Breast(s): Yes: WNL Musculoskeletal: Yes: WNL Extremities: Yes: Erythema Edema: Yes Edema: LLE: Trace, RLE: Trace Peripheral Pulses WNL: Yes Integumentary: Yes: Erythema, Venous Stasis Changes Wound/Incision: Yes: Reddened Neurological: Yes: Alert, Cran Nerves II-XII Intact ...Motor Strength: WNL Psychiatric: Yes: Alert Labs: CBC, BMP 09/21/19 02:50 09/21/19 02:50 Imaging - Results Chest X-ray: Image Reviewed EKG: Image Reviewed Problem List - Problems (1) Atrial fibrillation with RVR Assessment/Plan: Hx arrhythmia [id number] Continue cardiac monitoring Continue Cardizem drip Appreciate Cardiology consult Will start Heparin Drip Serial Enzymes Echo in am Monitor PTT Monitor CBC Stool Occult Code(s): I48.91 - UNSPECIFIED ATRIAL FIBRILLATION (2) SOB (shortness of breath) Assessment/Plan: Likely secondary to Afib vs CHF vs PE vs Asthma Exacerbation Chest Xray image- increased vasc congestion BNP 1687 PERC Rule 3 Wells Score 1.5 Appreciate Pulm consult O2 Duonebs Code(s): R06.02 - SHORTNESS OF BREATH (3) Hypertension Assessment/Plan: stable Monitor BP Continue home meds Monitor renal function Code(s): I10 - ESSENTIAL (PRIMARY) HYPERTENSION (4) Primary biliary cirrhosis Assessment/Plan: Ammonia 10.3 Lactulose Code(s): K74.3 - PRIMARY BILIARY CIRRHOSIS (5) Hypomagnesemia Assessment/Plan: Repleted with Mg Sulfate 2gm Monitor Mg level EKG- Afib with RVR Code(s): E83.42 - HYPOMAGNESEMIA (6) Elevated brain natriuretic peptide (BNP) level Assessment/Plan: Likely secondary HF Continue Lasix Monitor BMP Daily weights Strict INOs Appreciate Cardiology consult Code(s): R79.89 - OTHER SPECIFIED ABNORMAL FINDINGS OF BLOOD CHEMISTRY Assessment/Plan This is a 79 y/o woman with a significant medical history of HTN, Biliary Cirrhosis, Arrhythmia, Asthma. Admitted to ICU for New onset Afib with RVR, SOB , Electrolyte Imbalance for further evaluation of their emergent condition. Plan: See Problem List FEN Fluid Restriction Replete lytes prn Low Na Diet DVT ppx OOB SCDs Heparin Drip- newonset Afib with RVR Dispo: Requires Inpatient Care Visit type - Emergency Visit Emergency Visit: Yes ED Registration Date: 09/21/19 Care time: The patient presented to the Emergency Department on the above date and was hospitalized for further evaluation of their emergent condition. - New Patient This patient is new to me today: Yes Date on this admission: 09/21/19 - Critical Care Critical Care patient: No
[2019-09-21] MEDS ORDERED: FUROSEMIDE 40 MG/4 ML INJECTABLE VIAL ONE (05:08)
[2019-09-21] MEDS ORDERED: MAGNESIUM 1GM/D5W - 2 GM/200 ML IVPB IVPB ONE (05:09)
--- NOTE | 2019-09-21 05:44 | CONSULT ---
Consultation: REQUESTING PROVIDER: Dr. Morales CONSULT REQUEST: We have been asked to medically evaluate this patient for uncontrolled AFib with RVR. 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 Patient is primarily kinyarwanda speaking, thus the majority of the HPI was provided by the son joshua at bedside. Joshua mentions that patient was in her usual state of health until about 2 days ago. She initially felt she was going to pass out suddenly 2 days ago; a phenomenon for which she is unable to identify a trigger. Patient mentions that these sx's started suddenly and would last for a few minutes and then self resolve. She experience 2 episodes of this 2 days ago, and then multiple recurrent episodes that would come on suddenly yesterday. Her feelings of passing out and lightheadedness were accompanied by chest pressure over her midsternal chest and sudden onset facial redness. Joshua mentions that this is the first time patient complained of these sx's however the frequent reoccurrence brought them to [facility]. During my interview, her SOB persists however her other sx's including chest pressure, lightheadedness and feelings of passing out have resolved. Patient denies any hx of cardiac disease and is unable to further characterize her unspecified arrhythmia. Denies any recent travel or medication changes, no sick contacts. Denies any associated fevers, chills, chest pain, nausea, vomiting, diarrhea, co nstipation, numbness, tingling, weakness. REVIEW OF SYSTEMS: As per hpi PHYSICAL EXAMINATION Last Vital Signs Temp Pulse Resp BP Pulse Ox 97.4 F L 62 20 132/80 99 09/20/19 22:47 09/21/19 04:30 09/21/19 04:30 09/21/19 04:30 09/21/19 04:30 GENERAL: A&Ox3, NAD HEAD: NCAT EYES: PERRL, EOMI EARS, NOSE, THROAT: Moist mucous membranes. NECK: Supple, No JVD LUNGS: Diminished breath sounds at the bases, Rhonchi in the upper lobes, No wheezes, no crackles. HEART: Irregularly Irregular, normal S1 and S2 without murmur ABDOMEN: Soft, nontender, not distended, + bowel sounds, no guarding, no rebound MUSCULOSKELETAL: No CVA tenderness. EXTREMITIES: No peripheral edema. NEUROLOGICAL: Cranial nerves II-XII intact. SKIN: Warm, dry. B/L Anterior west chronic venous stasis changes with varicose veins Laboratory Last Values WBC 9.0 K/mm3 (4.0-10.0) 09/21/19 02:50 RBC 4.17 M/mm3 (3.60-5.2) 09/21/19 02:50 Hgb 13.5 GM/dL (10.7-15.3) 09/21/19 02:50 Hct 39.6 % (32.4-45.2) 09/21/19 02:50 MCV 94.9 fl (80-96) 09/21/19 02:50 MCH 32.3 pg (25.7-33.7) 09/21/19 02:50 MCHC 34.0 g/dl (32.0-36.0) 09/21/19 02:50 RDW 13.0 % (11.6-15.6) 09/21/19 02:50 Plt Count 194 K/MM3 (134-434) 09/21/19 02:50 MPV 9.6 fl (7.5-11.1) D 09/21/19 02:50 Absolute Neuts (auto) 4.4 K/mm3 (1.5-8.0) 09/21/19 02:50 Neutrophils % 48.7 % (42.8-82.8) D 09/21/19 02:50 Lymphocytes % 39.1 % (8-40) D 09/21/19 02:50 Monocytes % 10.1 % (3.8-10.2) 09/21/19 02:50 Eosinophils % 1.3 % (0-4.5) 09/21/19 02:50 Basophils % 0.8 % (0-2.0) 09/21/19 02:50 Nucleated RBC % 0 % (0-0) 09/21/19 02:50 PT with INR 12.50 SEC (9.7-13.0) 09/21/19 02:50 INR 1.06 (0.83-1.09) 09/21/19 02:50 PTT (Actin FS) 32.4 SECONDS (25.2-36.5) 09/21/19 02:50 Sodium 135 mmol/L (136-145) L 09/21/19 02:50 Potassium 3.4 mmol/L (3.5-5.1) L 09/21/19 02:50 Chloride 95 mmol/L (98-107) L 09/21/19 02:50 Carbon Dioxide 30 mmol/L (21-32) 09/21/19 02:50 Anion Gap 10 MMOL/L (8-16) 09/21/19 02:50 BUN 27.8 mg/dL (7-18) H 09/21/19 02:50 Creatinine 1.0 mg/dL (0.55-1.3) 09/21/19 02:50 Est GFR (CKD-EPI)AfAm 62.05 09/21/19 02:50 Est GFR (CKD-EPI)NonAf 53.54 09/21/19 02:50 Random Glucose 113 mg/dL (74-106) H 09/21/19 02:50 Lactic Acid 1.6 mmol/L (0.4-2.0) 09/21/19 04:30 Calcium 10.0 mg/dL (8.5-10.1) 09/21/19 02:50 Magnesium 1.4 mg/dL (1.8-2.4) L 09/21/19 02:50 Total Bilirubin 0.5 mg/dL (0.2-1) 09/21/19 02:50 AST 19 U/L (15-37) 09/21/19 02:50 ALT 13 U/L (13-61) 09/21/19 02:50 Ammonia 10.30 umol/L (11-32) L 09/21/19 03:00 Creatine Kinase 51 U/L (26-192) 09/21/19 02:50 Troponin I < 0.02 ng/ml (0.00-0.05) 09/21/19 02:50 B-Natriuretic Peptide 1687.4 pg/ml (5-450) H 09/21/19 02:50 Total Protein 7.4 g/dl (6.4-8.2) 09/21/19 02:50 Albumin 3.4 g/dl (3.4-5.0) 09/21/19 02:50 Blood Type O POSITIVE 09/21/19 02:50 Antibody Screen Negative 09/21/19 02:50 Active Medications Chlorhexidine Gluconate (Hibiclens For Decolonization -) 1 applic TP HS NELLY Diltiazem HCl 125 mg/ Sodium (Chloride) 125 mls @ 5 mls/hr IVPB TITR NELLY; Protocol Last Admin: 09/21/19 03:51 Dose: 5 mg/hr, 5 mls/hr Mupirocin (Bactroban Ointment (For Decolonization) -) 1 applic NS BID NELLY Stop: 09/26/19 09:59 ASSESSMENT/PLAN: 79 y/o F with PMHx of HTN, 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 #Cardio AFib with RVR Hx of HTN, unspecified arrhythmia -Given IV and PO Metoprolol tartrate in ED without adequate response and started on Diltiazem Drip, Uptitrate drip for HR < 120 -[id number] Score 4 -HASBLED Score 2 -Continue home dose BB, ARB; Uptitrate BB to reach goal HR -Will hold Thiazide tx in the setting of Hypokalemia -Start Heparin GTT, monitor PTT, CBC; Will defer NOAC use to cardio given moderate risk of bleeding (hasbled score 2) -Check lipid Panel, A1c, TSH, Echo, Trend Trops -Tele monitoring -Cardio (Dr. jacob) consulted #Pulm Hx of Asthma -CXR without infiltrate/effusions, ?Vascular congestion -Does not use home dose bronchodilators -Pulm consulted #GI Hx of Primary billiary cirrhosis -Continue home dose Ursodiol -Trend LFTs #Renal Hypokalemia, in the setting of thiazide use Hypomagnesemia -Replete Electrolytes PRN #MSK Hx of Osteopenia -Stable, No current issues #FEN -No standing fluids -Replete lytes PRN -Sodium controlled diet #PPx DVT: Heparin Dispo: We will continue to follow the patient. Thank you for this consultative opportunity. Visit type - Emergency Visit Emergency Visit: Yes ED Registration Date: 09/21/19 Care time: The patient presented to the Emergency Department on the above date and was hospitalized for further evaluation of their emergent condition. - New Patient This patient is new to me today: Yes Date on this admission: 09/21/19 - Critical Care Critical Care patient: Yes Total Critical Care Time (in minutes): 36 Critical Care Statement: The care of this patient involved high complexity decision making to prevent further life threatening deterioration of the patient's condition and/or to evaluate & treat vital organ system(s) failure or risk of failure. ATTENDING PHYSICIAN STATEMENT I saw and evaluated the patient. I reviewed the resident's note and discussed the case with the resident. I agree with the resident's findings and plan as documented. SUBJECTIVE: OBJECTIVE: ASSESSMENT AND PLAN:
[2019-09-21] MEDS ORDERED: HEPARIN NA (PORCINE) 5,000 UNITS/ML 1ML VIAL IVPUSH PRN ×2 (06:59)
[2019-09-21] MEDS ORDERED: HEPARIN INFUSION - 25,000 UNITS/500 ML INFUS.BAG IVPB SCH (07:00)
[2019-09-21 09:15] LABS: PH,URINE 7.5 (5.0-8.0); URINE APPEARANCE CLEAR; URINE BILIRUBIN NEGATIVE (NEGATIVE); URINE COLOR YELLOW; URINE GLUCOSE (UA) NEGATIVE (NEGATIVE); URINE KETONE TRACE (NEGATIVE); URINE LEUK ESTERASE NEGATIVE (NEGATIVE); URINE NITRITE NEGATIVE (NEGATIVE); URINE PROTEIN NEGATIVE (NEGATIVE); URINE UROBILINOGEN 0.2 mg/dL (0.2-1.0)
[2019-09-21] MEDS ORDERED: MUPIROCIN 2% TOPICAL OINTMENT FOR DECOLONIZATION NS SCH (10:00)
[2019-09-21] MEDS ORDERED: PT OWN MED DRAWER 7, Y5N ONE (11:00)
[2019-09-21] MEDS: LOSARTAN POTASSIUM 50 MG TABLET (FP) PO SCH (11:34)
[2019-09-21] MEDS: URSODIOL 300 MG CAPSULE PO SCH (11:34)
--- NOTE | 2019-09-21 11:37 | CON.CARD ---
Consult Consult Specialty:: Cardiology Referred by:: Yevgeniy Reason for Consultation:: sob, atrial fibrillation - History of Present Illness Chief Complaint: sob History of Present Illness: This is a 79 y/o woman with a significant medical history of HTN, Biliary Cirrhosis, Asthma who was admitted for SOB and dizziness. She was found in new atrial fibrillation with RVR. No chest pain, orthopnea, PND or edema. Exercise tolerance is poor. Cannot give a detailed history. She spontaneously converted to NSR. - History Source History Provided By: Medical Record - Past Medical History Cardio/Vascular: Yes: HTN, Other (arrhythmia) Pulmonary: Yes: Asthma Hepatobiliary: Yes: Cirrhosis Rheumatology: Yes: Other (osteoporosis) - Past Surgical History Past Surgical History: Yes: Cataract Removal, Hernia Repair - Alcohol/Substance Use Hx Alcohol Use: No History of Substance Use: reports: None - Smoking History Smoking history: Never smoked Have you smoked in the past 12 months: No - Social History ADL: Family Assistance History of Recent Travel: No Home Medications - Allergies Allergies/Adverse Reactions: Allergies Allergy/AdvReac Type Severity Reaction Status Date / Time No Known Allergies Allergy Verified 09/20/19 22:50 - Home Medications Home Medications: Ambulatory Orders Losartan/Hydrochlorothiazide [Losartan-Hctz 100-25 mg Tab] 1 tab PO DAILY Ursodiol [Actigal -] 300 mg PO DAILY 09/30/17 Metoprolol Succinate [Toprol Xl] 50 mg PO DAILY 05/25/19 Vital Signs: Vital Signs Temperature 97.4 F L 09/20/19 22:47 Pulse Rate 52 L 09/21/19 10:27 Respiratory Rate 16 09/21/19 06:30 Blood Pressure 120/75 09/21/19 10:27 O2 Sat by Pulse Oximetry (%) 98 09/21/19 06:30 Constitutional: Yes: No Distress, Calm Eyes: Yes: Conjunctiva Clear, EOM Intact HENT: Yes: Atraumatic, Normocephalic Neck: Yes: Trachea Midline Respiratory: Yes: CTA Bilaterally Gastrointestinal: Yes: Normal Bowel Sounds, Soft Cardiovascular: Yes: Regular Rate and Rhythm JVD: No Carotid Bruit: No PMI: Non-Displaced Heart Sounds: Yes: S1, S2 Edema: No Peripheral Pulses WNL: Yes - Other Data Labs, Other Data: CBC, BMP 09/21/19 02:50 09/21/19 02:50 INR, PTT INR 1.06 (0.83-1.09) 09/21/19 02:50 Troponin, BNP 09/21/19 09/21/19 02:50 02:50 Troponin I < 0.02 B-Natriuretic Peptide 1687.4 H Troponin, BNP 09/21/19 09/21/19 02:50 02:50 Troponin I < 0.02 B-Natriuretic Peptide 1687.4 H Imaging - Results Chest X-ray: Report Reviewed EKG: Report Reviewed Assessment/Plan This is a 79 y/o woman with a significant medical history of HTN, Biliary Cirrhosis, Asthma who was admitted for SOB and dizziness. She was found in new atrial fibrillation with RVR. No chest pain, orthopnea, PND or edema. Exercise tolerance is poor. Cannot give a detailed history. She spontaneously converted to NSR. Atrial Fibrillation with RVR -echo ordered -tfts -hold losartan for now -off dilt -increase metoprolol xl to 100 mg daily. -AC with Eliquis if no contraindications. Stop IV heparin. -continue lasix.
--- NOTE | 2019-09-21 13:04 | PN ---
Progress Note (short form) - Note Progress Note: Events noted pt examined in ER No complaints of palpitations, dizziness, chest pain on cardizem gtt and heparin gtt in ER Vital Signs - 24 hr 09/20/19 09/21/19 09/21/19 22:47 02:13 02:17 Temperature 97.4 F L Pulse Rate 81 Pulse Rate [ 90 Apical] Pulse Rate [ Left Radial] Respiratory 17 22 H Rate Blood Pressure 104/64 148/86 Blood Pressure 148/86 [Left Arm] O2 Sat by Pulse 100 96 Oximetry (%) 09/21/19 09/21/19 09/21/19 02:23 03:25 03:51 Temperature Pulse Rate 154 H Pulse Rate [ 100 H Apical] Pulse Rate [ Left Radial] Respiratory 22 H Rate Blood Pressure 131/82 111/87 Blood Pressure 111/87 [Left Arm] O2 Sat by Pulse 94 L Oximetry (%) 09/21/19 09/21/19 09/21/19 04:30 06:30 10:27 Temperature Pulse Rate 52 L Pulse Rate [ 62 Apical] Pulse Rate [ 56 L Left Radial] Respiratory 20 16 Rate Blood Pressure 120/75 Blood Pressure 132/80 118/58 L [Left Arm] O2 Sat by Pulse 99 98 Oximetry (%) Current Medications Generic Name Dose Route Start Last Admin Trade Name Freq PRN Reason Stop Dose Admin Chlorhexidine Gluconate 1 applic 09/21/19 22:00 Hibiclens For Decolonization - TP HS NELLY Heparin Sodium (Porcine) 1,000 unit 09/21/19 06:59 Heparin - IVPUSH PRN PRN Heparin Heparin Sodium (Porcine) 5,000 unit 09/21/19 06:59 Heparin - IVPUSH PRN PRN Heparin Heparin Sodium/Dextrose 25,000 units in 500 mls @ 20 mls/hr 09/21/19 07:00 07:00 Heparin Infusion - IVPB 1,000 units/hr TITR NELLY 20 mls/hr Administration Protocol 1,000 UNITS/HR Losartan Potassium 100 mg 09/21/19 10:00 09/21/19 11:34 Cozaar - PO Not Given DAILY NELLY Metoprolol Succinate 50 mg 09/21/19 10:00 09/21/19 10:27 Toprol Xl - PO 50 mg DAILY NELLY Administration Mupirocin 1 applic 09/21/19 10:00 Bactroban Ointment (For Decolonization) - NS 09/26/19 09:59 BID NELLY Ursodiol 300 mg 09/21/19 10:00 09/21/19 11:34 Actigal - PO 300 mg DAILY NELLY Administration Laboratory Results - last 24 hr 09/21/19 09/21/19 09/21/19 02:50 02:50 02:50 WBC 9.0 RBC 4.17 Hgb 13.5 Hct 39.6 MCV 94.9 MCH 32.3 MCHC 34.0 RDW 13.0 Plt Count 194 MPV 9.6 D Absolute Neuts (auto) 4.4 Neutrophils % 48.7 D Lymphocytes % 39.1 D Monocytes % 10.1 Eosinophils % 1.3 Basophils % 0.8 Nucleated RBC % 0 PT with INR INR PTT (Actin FS) Sodium 135 L Potassium 3.4 L Chloride 95 L Carbon Dioxide 30 Anion Gap 10 BUN 27.8 H Creatinine 1.0 Est GFR (CKD-EPI)AfAm 62.05 Est GFR (CKD-EPI)NonAf 53.54 Random Glucose 113 H Lactic Acid Calcium 10.0 Magnesium Total Bilirubin 0.5 AST 19 ALT 13 Alkaline Phosphatase 95 Ammonia Creatine Kinase 51 Troponin I < 0.02 B-Natriuretic Peptide Total Protein 7.4 Albumin 3.4 TSH 5.14 H Urine Color Urine Appearance Urine pH Ur Specific [place] Urine Protein Urine Glucose (UA) Urine Ketones Urine Blood Urine Nitrite Urine Bilirubin Urine Urobilinogen Ur Leukocyte Esterase Blood Type Antibody Screen 09/21/19 09/21/19 09/21/19 02:50 02:50 02:50 WBC RBC Hgb Hct MCV MCH MCHC RDW Plt Count MPV Absolute Neuts (auto) Neutrophils % Lymphocytes % Monocytes % Eosinophils % Basophils % Nucleated RBC % PT with INR 12.50 INR 1.06 PTT (Actin FS) 32.4 Sodium Potassium Chloride Carbon Dioxide Anion Gap BUN Creatinine Est GFR (CKD-EPI)AfAm Est GFR (CKD-EPI)NonAf Random Glucose Lactic Acid Calcium Magnesium 1.4 L Total Bilirubin AST ALT Alkaline Phosphatase Ammonia Creatine Kinase Troponin I B-Natriuretic Peptide 1687.4 H Total Protein Albumin TSH Urine Color Urine Appearance Urine pH Ur Specific [place] Urine Protein Urine Glucose (UA) Urine Ketones Urine Blood Urine Nitrite Urine Bilirubin Urine Urobilinogen Ur Leukocyte Esterase Blood Type Antibody Screen 09/21/19 09/21/19 09/21/19 02:50 03:00 04:30 WBC RBC Hgb Hct MCV MCH MCHC RDW Plt Count MPV Absolute Neuts (auto) Neutrophils % Lymphocytes % Monocytes % Eosinophils % Basophils % Nucleated RBC % PT with INR INR PTT (Actin FS) Sodium Potassium Chloride Carbon Dioxide Anion Gap BUN Creatinine Est GFR (CKD-EPI)AfAm Est GFR (CKD-EPI)NonAf Random Glucose Lactic Acid 1.6 Calcium Magnesium Total Bilirubin AST ALT Alkaline Phosphatase Ammonia 10.30 L Creatine Kinase Troponin I B-Natriuretic Peptide Total Protein Albumin TSH Urine Color Urine Appearance Urine pH Ur Specific [place] Urine Protein Urine Glucose (UA) Urine Ketones Urine Blood Urine Nitrite Urine Bilirubin Urine Urobilinogen Ur Leukocyte Esterase Blood Type O POSITIVE Antibody Screen Negative 09/21/19 Unknown WBC RBC Hgb Hct MCV MCH MCHC RDW Plt Count MPV Absolute Neuts (auto) Neutrophils % Lymphocytes % Monocytes % Eosinophils % Basophils % Nucleated RBC % PT with INR INR PTT (Actin FS) Sodium Potassium Chloride Carbon Dioxide Anion Gap BUN Creatinine Est GFR (CKD-EPI)AfAm Est GFR (CKD-EPI)NonAf Random Glucose Lactic Acid Calcium Magnesium Total Bilirubin AST ALT Alkaline Phosphatase Ammonia Creatine Kinase Troponin I B-Natriuretic Peptide Total Protein Albumin TSH Urine Color Yellow Urine Appearance Clear Urine pH 7.5 Ur Specific [place] 1.012 Urine Protein Negative Urine Glucose (UA) Negative Urine Ketones Trace H Urine Blood Negative Urine Nitrite Negative Urine Bilirubin Negative Urine Urobilinogen 0.2 Ur Leukocyte Esterase Negative Blood Type Antibody Screen s1 S2 RRR Lungs clear Abd- soft, NT chronic venous changes, dermatitis to skin of both legs edema+ Assessment/Plan This is a 79 y/o woman with a significant medical history of HTN, Biliary Cirrhosis, Arrhythmia, Asthma. Admitted to ICU for New onset Afib with RVR, SOB , Electrolyte Imbalance for further evaluation of their emergent condition. Problems (1) Atrial fibrillation with RVR Assessment/Plan: Hx arrhythmia [id number] 4 Continue cardiac monitoring Appreciate Cardiology consult Will dc Heparin gtt and start Eliquis DC cardizem gtt and increase Metoprolol Code(s): I48.91 - UNSPECIFIED ATRIAL FIBRILLATION (2) SOB (shortness of breath) Assessment/Plan: Likely secondary to Afib vs CHF vs PE vs Asthma Exacerbation Chest Xray image- increased vasc congestion BNP 1687 PERC Rule 3 Wells Score 1.5 Appreciate Pulm consult O2 Duonebs Code(s): R06.02 - SHORTNESS OF BREATH (3) Hypertension Assessment/Plan: stable Monitor BP Continue home meds Monitor renal function Code(s): I10 - ESSENTIAL (PRIMARY) HYPERTENSION (4) Primary biliary cirrhosis Assessment/Plan: Ammonia 10.3 she is not altered Lactulose Code(s): K74.3 - PRIMARY BILIARY CIRRHOSIS (5) Hypomagnesemia Assessment/Plan: Repleted with Mg Sulfate 2gm Monitor Mg level EKG- Afib with RVR Code(s): E83.42 - HYPOMAGNESEMIA (6) Elevated brain natriuretic peptide (BNP) level Assessment/Plan: Likely secondary HF Continue Lasix Monitor BMP Daily weights Strict INOs check Echo Appreciate Cardiology consult Code(s): R79.89 - OTHER SPECIFIED ABNORMAL FINDINGS OF BLOOD CHEMISTRY Problem List - Problems (1) Atrial fibrillation with RVR Code(s): I48.91 - UNSPECIFIED ATRIAL FIBRILLATION (2) Elevated brain natriuretic peptide (BNP) level Code(s): R79.89 - OTHER SPECIFIED ABNORMAL FINDINGS OF BLOOD CHEMISTRY (3) SOB (shortness of breath) Code(s): R06.02 - SHORTNESS OF BREATH (4) Chronic kidney disease Code(s): N18.9 - CHRONIC KIDNEY DISEASE, UNSPECIFIED Qualifiers: Chronic kidney disease stage: stage 2 (mild) Qualified Code(s): N18.2 - Chronic kidney disease, stage 2 (mild) (5) Hypertension Code(s): I10 - ESSENTIAL (PRIMARY) HYPERTENSION (6) Primary biliary cirrhosis Code(s): K74.3 - PRIMARY BILIARY CIRRHOSIS
--- NOTE | 2019-09-21 13:08 | PN ---
Teaching Attending Note Name of Resident: Diana Vick ATTENDING PHYSICIAN STATEMENT I saw and evaluated the patient. I reviewed the resident's note and discussed the case with the resident. I agree with the resident's findings and plan as documented. SUBJECTIVE: Pt seen and examined in the ER. Now in sinus rhythm with resolution of symptoms , denies shortness of breath, chest pain or palpitations. Reports compliance with medications at home. OBJECTIVE: Vital Signs Period Temp Pulse Resp BP Sys/Paz Pulse Ox Last 24 Hr 97.4 F 52-154 16-22 104-148/58-87 94-100 Intake & Output 09/18/19 09/19/19 09/20/19 09/21/19 23:59 23:59 23:59 23:59 Weight 45.359 kg Gen: NAD at rest Heart: RRR Lung: decreased breath sounds at the bases Abd: soft, nontender Ext: no edema CBC, BMP 09/21/19 02:50 09/21/19 02:50 Active Medications Chlorhexidine Gluconate (Hibiclens For Decolonization -) 1 applic TP HS NELLY Heparin Sodium (Porcine) (Heparin -) 1,000 unit IVPUSH PRN PRN PRN Reason: Heparin Heparin Sodium (Porcine) (Heparin -) 5,000 unit IVPUSH PRN PRN PRN Reason: Heparin Heparin Sodium/Dextrose (Heparin Infusion -) 25,000 units in 500 mls @ 20 mls/ hr IVPB TITR NELLY; Protocol Last Admin: 09/21/19 07:00 Dose: 1,000 units/hr, 20 mls/hr Losartan Potassium (Cozaar -) 100 mg PO DAILY [facility] Last Admin: 09/21/19 11:34 Dose: Not Given Metoprolol Succinate (Toprol Xl -) 50 mg PO DAILY [facility] Last Admin: 09/21/19 10:27 Dose: 50 mg Mupirocin (Bactroban Ointment (For Decolonization) -) 1 applic NS BID [facility] Stop: 09/26/19 09:59 Ursodiol (Actigal -) 300 mg PO DAILY [facility] Last Admin: 09/21/19 11:34 Dose: 300 mg ASSESSMENT AND PLAN: Paroxysmal Atrial Fibrillation with RVR now in sinus LV Diastolic Dysfunction Primary Biliary Cirrhosis Asthma HTN - rate controlled - continue anticoagulation - echocardiogram - replete lytes - O2 to keep SpO2 >90% - pt currently hemodynamicallly stable, not requiring titrating gtts - can monitor on telemetry, please call back if any change in clinical condition
--- NOTE | 2019-09-21 13:51 | PN ---
Progress Note, Physician Chief Complaint: afib with RVR History of Present Illness: No acute events overnight. Pt HR now controlled, no longer requiring gtt. Can be admitted to telemetry for further observation - Current Medication List Current Medications: Active Medications Apixaban (Eliquis -) 5 mg PO BID NELLY Chlorhexidine Gluconate (Hibiclens For Decolonization -) 1 applic TP HS NELLY Furosemide (Lasix Injection -) 40 mg IVPUSH DAILY [facility] Losartan Potassium (Cozaar -) 100 mg PO DAILY [facility] Last Admin: 09/21/19 11:34 Dose: Not Given Metoprolol Succinate (Toprol Xl -) 100 mg PO DAILY [facility] Mupirocin (Bactroban Ointment (For Decolonization) -) 1 applic NS BID [facility] Stop: 09/26/19 09:59 Ursodiol (Actigal -) 300 mg PO DAILY [facility] Last Admin: 09/21/19 11:34 Dose: 300 mg - Objective Vital Signs: Vital Signs Temperature 97.4 F L 09/20/19 22:47 Pulse Rate 52 L 09/21/19 10:27 Respiratory Rate 16 09/21/19 06:30 Blood Pressure 120/75 09/21/19 10:27 O2 Sat by Pulse Oximetry (%) 98 09/21/19 06:30 Physical Exam: GENERAL: A&Ox3, NAD HEAD: NCAT EYES: PERRL, EOMI EARS, NOSE, THROAT: Moist mucous membranes. NECK: Supple, No JVD LUNGS: Diminished breath sounds at the bases, No wheezes, no crackles. HEART: Irregularly Irregular, normal S1 and S2 without murmur ABDOMEN: Soft, nontender, not distended, + bowel sounds, no guarding, no rebound MUSCULOSKELETAL: No CVA tenderness. EXTREMITIES: No peripheral edema. NEUROLOGICAL: Cranial nerves II-XII intact. SKIN: Warm, dry. 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 #CV AFib with RVR Hx of HTN, unspecified arrhythmia -[id number] Score 4 -HASBLED Score 2 -HR now controlled, DC diltiazem drip and resume PO metoprolol for rate control -Continue home dose BB, ARB; Uptitrate BB to reach goal HR -pt currently hemodynamicallly stable, not requiring titrating gtts -Continue AC -Echocardiogram -Tele monitoring -Cardio (Dr. Solitario) consulted, appreciate recommendations #Pulm Hx of Asthma -CXR without infiltrate/effusions -Does not use home dose bronchodilators -Pt no longer requiring NC, maintain SPO2 >90% #GI Hx of Primary billiary cirrhosis -Continue home dose Ursodiol -Trend LFTs #Renal Hypokalemia, in the setting of thiazide use Hypomagnesemia -Replete Electrolytes PRN #MSK Hx of Osteopenia -Stable, No current issues #FEN -No standing fluids -Replete lytes PRN -Sodium controlled diet #PPx DVT: Heparin Dispo: pt stable for continued observation on telemetry Visit type - Emergency Visit Emergency Visit: Yes ED Registration Date: 09/21/19 Care time: The patient presented to the Emergency Department on the above date and was hospitalized for further evaluation of their emergent condition. - New Patient This patient is new to me today: Yes Date on this admission: 09/21/19 - Critical Care Critical Care patient: Yes Total Critical Care Time (in minutes): 40 Critical Care Statement: The care of this patient involved high complexity decision making to prevent further life threatening deterioration of the patient's condition and/or to evaluate & treat vital organ system(s) failure or risk of failure. ATTENDING PHYSICIAN STATEMENT I saw and evaluated the patient. I reviewed the resident's note and discussed the case with the resident. I agree with the resident's findings and plan as documented. SUBJECTIVE: OBJECTIVE: ASSESSMENT AND PLAN:
[2019-09-21 14:05] LABS: MAGNESIUM 2.3 mg/dL (1.8-2.4); PHOSPHOROUS 3.8 mg/dL (2.5-4.9)
--- NOTE | 2019-09-21 14:25 | EKG ---
Test Reason : Blood Pressure : / mmHG Vent. Rate : 056 BPM Atrial Rate : 056 BPM P-R Int : 158 ms QRS Dur : 084 ms QT Int : 454 ms P-R-T Axes : 032 -10 003 degrees QTc Int : 438 ms SINUS BRADYCARDIA WITH SINUS ARRHYTHMIA VOLTAGE CRITERIA FOR LEFT VENTRICULAR HYPERTROPHY ABNORMAL ECG WHEN COMPARED WITH ECG OF 21-SEP-2019 02:03, SINUS RHYTHM HAS REPLACED ATRIAL FIBRILLATION VENT. RATE HAS DECREASED BY [address] NO LONGER DEPRESSED IN ANTERIOR LEADS INVERTED T WAVES HAVE REPLACED NONSPECIFIC T WAVE ABNORMALITY IN INFERIOR LEADS NONSPECIFIC T WAVE ABNORMALITY NO LONGER EVIDENT IN LATERAL LEADS Confirmed by MANA DURHAM MD ([id number]) on 09/21/2019 2:24:49 PM Referred By: Confirmed By:MANA DURHAM MD
--- NOTE | 2019-09-21 16:37 | ECHO ---
Name: BENJAMIN COUGHLIN Exam:Adult Echocardiogram Study Date: 09/21/2019 03:46 PM Age: 79 yrs Reason For Study: New Onset A-Fib with RVR Height: 60 in Weight: 100 lb BSA: 1.4 m2 MMode/2D Measurements & Calculations IVSd: 1.1 cm Ao root diam: 2.6 cm LVIDd: 2.8 cm LA dimension: 3.7 cm LVIDs: 2.0 cm ACS: 1.5 cm LVPWd: 0.99 cm EDV(Teich): 29.6 ml LVOT diam: 1.7 cm ESV(Teich): 13.0 ml LAV (MOD-bp): 66.5 ml TAPSE: 1.7 cm RV S Angelo: 10.2 cm/sec Doppler Measurements & Calculations MV E max angelo: 73.2 cm/sec Ao V2 max: 142.5 cm/sec MV A max angelo: 75.2 cm/sec Ao max P.1 mmHg MV E/A: 0.97 Ao V2 mean: 88.4 cm/sec MV dec time: 0.24 sec Ao mean P.7 mmHg Ao V2 VTI: 28.0 cm CHARO(I,D): 1.6 cm2 CHARO(V,D): 1.2 cm2 LV V1 max P.1 mmHg SV(LVOT): 43.7 ml LV V1 mean P.95 mmHg LV V1 max: 73.2 cm/sec LV V1 mean: 44.3 cm/sec LV V1 VTI: 19.0 cm TR max angelo: 199.5 cm/sec PA V2 max: 58.4 cm/sec TR max P.9 mmHg PA max P.4 mmHg PA acc time: 0.16 sec Med Peak E' Angelo: 5.3 cm/sec PA pr(Accel): 6.1 mmHg Med E/e': 13.7 Lat Peak E' Angelo: 9.6 cm/sec Lat E/e': 7.6 Pulm Sys Angelo: 52.4 cm/sec Pulm Paz Angelo: 30.1 cm/sec Pulm S/D: 1.7 Procedure A complete two-dimensional transthoracic echocardiogram was performed (2D, M-mode, Doppler and color flow Doppler). Left Ventricle The left ventricular size, thickness and function are normal. The left ventricular ejection fraction is normal. Ejection Fraction = 60-65%. The left ventricular wall motion is normal. Right Ventricle The right ventricle is normal in size and function. Atria Normal left and right atrial size and function. Mitral Valve There is no mitral regurgitation noted. Tricuspid Valve There is trace tricuspid regurgitation. Aortic Valve No hemodynamically significant valvular aortic stenosis. No aortic regurgitation is present. Pulmonic Valve There is no pulmonic valvular regurgitation. Great Vessels The aortic root is normal size. Pericardium/Pleura There is no pericardial effusion. Interpretation Summary The left ventricular size, thickness and function are normal The right ventricle is normal in size and function. There is trace tricuspid regurgitation. MD Dennis Crane 09/21/2019 04:37 PM
[2019-09-21] MEDS: APIXABAN 5 MG TABLET PO SCH (21:16)
[2019-09-21] MEDS ORDERED: CHLORHEXIDINE GLUCONATE 4% CLEANSER FOR DECOLONIZATION TP SCH (22:00)
[2019-09-22 07:55] LABS: CALCIUM 9.3 mg/dL (8.5-10.1); CREATININE 1.3 mg/dL (0.55-1.3); POTASSIUM 4.7 mmol/L (3.5-5.1)
[2019-09-22] MEDS: APIXABAN 5 MG TABLET PO SCH ×2 (09:16→21:43)
[2019-09-22] MEDS: URSODIOL 300 MG CAPSULE PO SCH (09:16)
[2019-09-22] MEDS: LOSARTAN POTASSIUM 50 MG TABLET (FP) PO SCH (09:30)
[2019-09-22] MEDS ORDERED: FUROSEMIDE 40 MG/4 ML INJECTABLE VIAL IVPUSH SCH (10:00)
--- NOTE | 2019-09-22 10:53 | PN ---
Progress Note, Physician History of Present Illness: Pt seen/ examined chart is reviewed awake/ comfortable denies cp In sinus now off Heparin drip BP fluctuating - Current Medication List Current Medications: Active Medications Apixaban (Eliquis -) 5 mg PO BID [facility] Last Admin: 09/22/19 09:16 Dose: 5 mg Furosemide (Lasix Injection -) 40 mg IVPUSH DAILY [facility] Last Admin: 09/22/19 09:25 Dose: 40 mg Losartan Potassium (Cozaar -) 100 mg PO DAILY [facility] Last Admin: 09/22/19 09:30 Dose: Not Given Metoprolol Succinate (Toprol Xl -) 100 mg PO DAILY [facility] Ursodiol (Actigal -) 300 mg PO DAILY [facility] Last Admin: 09/22/19 09:16 Dose: 300 mg - Objective Vital Signs: Vital Signs Temperature 98 F 09/22/19 08:00 Pulse Rate 80 09/22/19 08:00 Respiratory Rate 18 09/22/19 08:00 Blood Pressure 97/55 L 09/22/19 08:00 O2 Sat by Pulse Oximetry (%) 96 09/21/19 20:32 Constitutional: Yes: No Distress, Calm Eyes: Yes: Conjunctiva Clear Neck: Yes: Supple Cardiovascular: Yes: Regular Rate and Rhythm Respiratory: Yes: CTA Bilaterally Gastrointestinal: Yes: Soft Edema: No Neurological: Yes: Alert Labs: CBC, BMP 09/21/19 02:50 09/22/19 06:45 INR, PTT INR 1.06 (0.83-1.09) 09/21/19 02:50 - ....Imaging Chest X-ray: Report Reviewed Other: Other (echo=--Normal LV function) Problem List - Problems (1) Atrial fibrillation with RVR Code(s): I48.91 - UNSPECIFIED ATRIAL FIBRILLATION (2) Elevated brain natriuretic peptide (BNP) level Code(s): R79.89 - OTHER SPECIFIED ABNORMAL FINDINGS OF BLOOD CHEMISTRY (3) SOB (shortness of breath) Code(s): R06.02 - SHORTNESS OF BREATH (4) Hypertension Code(s): I10 - ESSENTIAL (PRIMARY) HYPERTENSION (5) Primary biliary cirrhosis Code(s): K74.3 - PRIMARY BILIARY CIRRHOSIS Assessment/Plan Clinically stable monitor on tele today Monitor BP OOb - chair Cardiology to follow If stable- Consider d/c in am Will follow
--- NOTE | 2019-09-22 13:26 | PN ---
Progress Note, Physician Chief Complaint: Less sob tele periods of sinus tachycardia. BP labile but no symptoms. History of Present Illness: This is a 79 y/o woman with a significant medical history of HTN, Biliary Cirrhosis, Asthma who was admitted for SOB and dizziness. She was found in new atrial fibrillation with RVR. No chest pain, orthopnea, PND or edema. Exercise tolerance is poor. Cannot give a detailed history. She spontaneously converted to NSR. Echo 09/21/19: nlef trace TR - Current Medication List Current Medications: Active Medications Apixaban (Eliquis -) 5 mg PO BID [facility] Last Admin: 09/22/19 09:16 Dose: 5 mg Furosemide (Lasix Injection -) 40 mg IVPUSH DAILY [facility] Last Admin: 09/22/19 09:25 Dose: 40 mg Losartan Potassium (Cozaar -) 100 mg PO DAILY [facility] Last Admin: 09/22/19 09:30 Dose: Not Given Metoprolol Succinate (Toprol Xl -) 100 mg PO DAILY [facility] Last Admin: 09/22/19 12:27 Dose: 100 mg Ursodiol (Actigal -) 300 mg PO DAILY [facility] Last Admin: 09/22/19 09:16 Dose: 300 mg - Objective Vital Signs: Vital Signs Temperature 98 F 09/22/19 08:00 Pulse Rate 80 09/22/19 08:00 Respiratory Rate 18 09/22/19 08:00 Blood Pressure 116/62 09/22/19 12:25 O2 Sat by Pulse Oximetry (%) 97 09/22/19 09:00 Constitutional: Yes: No Distress, Calm Eyes: Yes: Conjunctiva Clear, EOM Intact HENT: Yes: Atraumatic, Normocephalic Neck: Yes: Trachea Midline Cardiovascular: Yes: Regular Rate and Rhythm Respiratory: Yes: CTA Bilaterally Gastrointestinal: Yes: Normal Bowel Sounds, Soft Musculoskeletal: Yes: WNL Extremities: Yes: WNL Edema: No Labs: CBC, BMP 09/21/19 02:50 09/22/19 06:45 INR, PTT INR 1.06 (0.83-1.09) 09/21/19 02:50 Assessment/Plan This is a 79 y/o woman with a significant medical history of HTN, Biliary Cirrhosis, Asthma who was admitted for SOB and dizziness. She was found in new atrial fibrillation with RVR. No chest pain, orthopnea, PND or edema. Exercise tolerance is poor. Cannot give a detailed history. She spontaneously converted to NSR. Atrial Fibrillation with RVR -echo is normal. -tfts -hold losartan for now -off dilt -Continue metoprolol xl 100 mg daily. -AC with Eliquis. -continue lasix. -dc tomorrow if still in NSR.
[2019-09-22 16:22] VITALS: BMI 19.7
[2019-09-23 06:31] LABS: HEMATOCRIT 35.5 % (32.4-45.2); HEMOGLOBIN 12.2 GM/dL (10.7-15.3); MCH 32.4 pg (25.7-33.7); MCHC 34.4 g/dl (32.0-36.0); MEAN CELL VOLUME 94.2 fl (80-96); MEAN PLT VOLUME 8.9 fl (7.5-11.1); PLATELET COUNT 156 K/MM3 (134-434); RBC 3.77 M/mm3 (3.60-5.2); RDW 13.2 % (11.6-15.6); WHITE BLOOD COUNT 7.1 K/mm3 (4.0-10.0)
[2019-09-23] MEDS: APIXABAN 5 MG TABLET PO SCH (09:46)
[2019-09-23] MEDS: URSODIOL 300 MG CAPSULE PO SCH (09:46)
[2019-09-23] MEDS ORDERED: FUROSEMIDE 40 MG TABLET (FP) PO SCH (10:00)
--- NOTE | 2019-09-23 12:07 | DS ---
Physical Examination Vital Signs: Vital Signs Temperature 97.8 F 09/23/19 08:23 Pulse Rate 74 09/23/19 08:23 Respiratory Rate 18 09/23/19 08:23 Blood Pressure 119/70 09/23/19 08:23 O2 Sat by Pulse Oximetry (%) 95 09/23/19 08:46 Constitutional: Yes: No Distress, Calm Cardiovascular: Yes: Regular Rate and Rhythm Respiratory: Yes: CTA Bilaterally Gastrointestinal: Yes: Normal Bowel Sounds, Soft. No: Tenderness Edema: No Labs: CBC, BMP 09/23/19 06:05 09/22/19 06:45 Discharge Summary Problems reviewed: Yes Reason For Visit: SHORTNESS OF BREATH,ATRIAL FIBRILLATION WITH RAPID Current Active Problems Atrial fibrillation with RVR (Acute) Elevated brain natriuretic peptide (BNP) level (Acute) Hypomagnesemia (Acute) SOB (shortness of breath) (Acute) Hospital Course: Admitted for rapid Afib and CHF Pt seen by Cardiology Initially started on heparin gtt and cardizem GTT Now she is on Eliquis Metoprolol increased Pt is better Echo-- normal EF stable for dc home -- follow up with cardiology Condition: Stable - Instructions Referrals: Honorio Obando MD [Primary Care Provider] - Royce Flowers MD [Staff Physician] - Disposition: HOME - Home Medications Comprehensive Discharge Medication List: Ambulatory Orders Ursodiol [Actigal -] 300 mg PO TID 09/30/17 Calcium Carbonate/Vitamin D3 [Calcium 600-Vit D3 400 Tablet] 1 each PO DAILY 03/04 Apixaban [Eliquis -] 5 mg PO BID #60 tablet 09/23/19 Furosemide [Lasix -] 40 mg PO DAILY #30 tablet 09/23/19 Metoprolol Succinate [Toprol XL -] 100 mg PO DAILY #30 tab.sr.24h 09/23/19
[2019-09-23 14:12] VITALS: BP 106/58; PULSE 68; TEMP 97.6
--- NOTE | 2019-09-23 14:22 | PN ---
Progress Note, Physician History of Present Illness: seen and examined today in [facility]. planned for discharge today. no new complaints. - Current Medication List Current Medications: Active Medications Apixaban (Eliquis -) 5 mg PO BID [facility] Last Admin: 09/23/19 09:46 Dose: 5 mg Furosemide (Lasix -) 40 mg PO DAILY [facility] Last Admin: 09/23/19 09:46 Dose: 40 mg Metoprolol Succinate (Toprol Xl -) 100 mg PO DAILY [facility] Last Admin: 09/23/19 09:46 Dose: 100 mg Ursodiol (Actigal -) 300 mg PO DAILY [facility] Last Admin: 09/23/19 09:46 Dose: 300 mg - Objective Vital Signs: Vital Signs Temperature 97.6 F 09/23/19 12:45 Pulse Rate 68 09/23/19 12:45 Respiratory Rate 18 09/23/19 12:45 Blood Pressure 106/58 L 09/23/19 12:45 O2 Sat by Pulse Oximetry (%) 95 09/23/19 08:46 Constitutional: Yes: No Distress, Calm Eyes: Yes: Conjunctiva Clear, EOM Intact HENT: Yes: Atraumatic, Normocephalic Neck: Yes: Supple, Trachea Midline Cardiovascular: Yes: Regular Rate and Rhythm, S1, S2. No: Bradycardia, Tachycardia, Pulse Irregular, Bruit, JVD, Gallop, Murmur, Rub, S3, S4 Respiratory: Yes: Regular, CTA Bilaterally. No: Rales, Rhonchi, SOB, Wheezes Gastrointestinal: Yes: Normal Bowel Sounds, Soft Extremities: Yes: WNL Edema: No Peripheral Pulses WNL: Yes Peripheral Pulses: Left Doralis Pedis: 2+, Right Dorsalis Pedis: 2+ Neurological: Yes: Alert, Oriented Psychiatric: Yes: Alert, Oriented Labs: CBC, BMP 09/23/19 06:05 09/22/19 06:45 INR, PTT INR 1.06 (0.83-1.09) 09/21/19 02:50 - ....Imaging Chest X-ray: Report Reviewed, Image Reviewed EKG: Report Reviewed, Image Reviewed Other: Report Reviewed, Image Reviewed (tele-nsr, no further afib) Assessment/Plan 79 y/o woman with a significant medical history of HTN, Biliary Cirrhosis, Asthma who was admitted for SOB and dizziness. She was found in new atrial fibrillation with RVR. No chest pain, orthopnea, PND or edema. Exercise tolerance is poor. Cannot give a detailed history. She spontaneously converted to NSR. Atrial Fibrillation with RVR -remains in NSR -echo is normal. -tfts -hold losartan for now given borderline bp -off dilt -Continue metoprolol xl 100 mg daily. -AC with Eliquis. -continue lasix. -ok for discharge with outpatient fup.
[2019-09-23] MEDS ORDERED: BACITRACIN 15 GM TUBE TOPICAL OINTMENT TP SCH (15:15)
== END 2019-09-23 15:50 | disposition home or self-care (01) | DRG 310 ==
LOC: JER 22:08 → JERBED 09-21 02:16 → JICU 09-21 09:33 → JERBED 09-21 09:33 → J4S 09-21 13:42
PROVIDERS: ADMIT Internal Medicine; ATTEND Internal Medicine
DX: I48.91 Unspecified atrial fibrillation (principal); J45.909 Unspecified asthma, uncomplicated; E87.6 Hypokalemia; K74.3 Primary biliary cirrhosis; E83.42 Hypomagnesemia; N18.2 Chronic kidney disease, stage 2 (mild); R79.89 Other specified abnormal findings of blood chemistry; R06.02 Shortness of breath; M81.0 Age-related osteoporosis without current pathological fracture
CPT/HCPCS: 36415; 71045-TC-FY; 80048; 80053; 81003; 82140; 82550; 83605; 83735; 83880; 84100; 84443; 84484; 85025; 85027; 85610; 85730; 86850; 86900; 86901; 87081; 87086; 93005; 93010; 93306-TC; 99285-25; J1644

== ENCOUNTER 2022-12-20 08:49 | Emergency (ER) | payer OTHER ==
[2022-12-20 09:03] VITALS: BMI 27.0
[2022-12-20] MEDS ORDERED: SODIUM CHLORIDE 0.9% 500 ML INFUS.BAG IV ONE (10:01)
[2022-12-20 10:37] LABS: BASO % 0.5 % (0-2.0); EOS % 0.5 % (0-4.5); HEMATOCRIT 34.4 % (32.4-45.2); LYMPH % 13.8 % (8-40); MCH 32.7 pg (25.7-33.7); MEAN CELL VOLUME 93.5 fl (80-96); MEAN PLT VOLUME 9.1 fl (7.5-11.1); MONO % 11.7 % (3.8-10.2); NEUT % 73.5 % (42.8-82.8); PLATELET COUNT 157 10^3/uL (134-434); RBC 3.68 M/mm3 (3.60-5.2); RDW 13.8 % (11.6-15.6); WHITE BLOOD COUNT 7.6 K/mm3 (4.0-10.0)
[2022-12-20 11:03] LABS: POTASSIUM 3.4 mmol/L (3.5-5.1)
[2022-12-20 11:07] LABS: BLOOD UREA NITROGEN 16.4 mg/dL (7-18); MAGNESIUM 1.8 mg/dL (1.8-2.4)
[2022-12-20 11:10] LABS: CREATININE 1.1 mg/dL (0.55-1.3); PHOSPHOROUS 2.8 mg/dL (2.5-4.9)
[2022-12-20 11:11] LABS: BILIRUBIN,TOTAL 0.5 mg/dL (0.2-1)
[2022-12-20 11:26] LABS: ANISOCYTOSIS 0; MACROCYTOSIS 0
[2022-12-20] MEDS ORDERED: LOPERAMIDE HCL 2 MG CAPSULE PO ONE (12:19)
[2022-12-20] MEDS ORDERED: LOPERAMIDE HCL 2 MG CAPSULE ONE (12:40)
[2022-12-20 14:29] VITALS: BP 104/56; PULSE 99; RESP 16; TEMP 97.2
== END 2022-12-20 15:35 | disposition home or self-care (01) ==
LOC: JER 08:49
DX: R19.7 Diarrhea, unspecified (principal); Z20.822 Contact with and (suspected) exposure to COVID-19
CPT/HCPCS: 0241U-QW; 36415; 80053; 83605; 83735; 84100; 84484; 85025; 87209; 99283-25

== ENCOUNTER 2022-12-23 16:52 | Inpatient (IN) | payer OTHER ==
[2022-12-23] MEDS ORDERED: ACETAMINOPHEN 1000 MG/100 ML BAG IVPB ONE (17:34)
[2022-12-23] MEDS ORDERED: SODIUM CHLORIDE 0.9% 500 ML INFUS.BAG IV ONE ×2 (17:34→20:17)
[2022-12-23] MEDS ORDERED: PIPERACILLIN/TAZOB 4.5 GM 4.5 GM in DEXTROSE 5%-WATER 100 ML IVPB ONE (17:42)
[2022-12-23] MEDS ORDERED: ACETAMINOPHEN INJECTION 100 ML IVPB ONE (17:45)
[2022-12-23] MEDS ORDERED: PIPERACILLIN/TAZOB 4.5 GM 4.5 GM/100 ML BAG IVPB ONE (17:45)
[2022-12-23 18:53] LABS: BASO % 0.3 % (0-2.0); EOS % 0.1 % (0-4.5); HEMATOCRIT 34.9 % (32.4-45.2); HEMOGLOBIN 11.7 GM/dL (10.7-15.3); LYMPH % 7.5 % (8-40); MCH 31.4 pg (25.7-33.7); MCHC 33.6 g/dl (32.0-36.0); MEAN CELL VOLUME 93.2 fl (80-96); MONO % 9.1 % (3.8-10.2); PLATELET COUNT 209 10^3/uL (134-434); RBC 3.74 M/mm3 (3.60-5.2); RDW 13.7 % (11.6-15.6); WHITE BLOOD COUNT 10.7 K/mm3 (4.0-10.0)
[2022-12-23 19:09] LABS: POTASSIUM 5.2 mmol/L (3.5-5.1)
[2022-12-23 19:11] LABS: ALBUMIN 2.5 g/dl (3.4-5.0); BLOOD UREA NITROGEN 27.3 mg/dL (7-18); CALCIUM 8.9 mg/dL (8.5-10.1)
[2022-12-23 19:14] LABS: CREATININE 1.4 mg/dL (0.55-1.3)
[2022-12-23 19:16] LABS: BILIRUBIN,TOTAL 0.8 mg/dL (0.2-1); TOT PROT 6.7 g/dl (6.4-8.2)
[2022-12-23] MEDS ORDERED: SODIUM CHLORIDE 1,000 ML IV SCH (23:45)
[2022-12-24] MEDS ORDERED: APIXABAN 2.5 MG TABLET PO SCH ×2 (00:15→10:00)
[2022-12-24] MEDS ORDERED: TRIMETHOBENZAMIDE HCL 200MG/2ML INJ IM PRN ×3 (00:18→19:44)
[2022-12-24] MEDS ORDERED: CEFTRIAXONE 1 GM in DEXTROSE 5%-WATER - 50 ML IVPB SCH (00:45)
[2022-12-24] MEDS ORDERED: SODIUM CHLORIDE 1,000 ML IV STA ×2 (02:13→04:14)
[2022-12-24] MEDS ORDERED: VANCOMYCIN 1 GM/200 ML PREMIX BAG (RESTRICTED TO ID ONLY) IVPB SCH (03:30)
[2022-12-24 04:00] LABS: MAGNESIUM 1.7 mg/dL (1.8-2.4)
[2022-12-24] MEDS ORDERED: SODIUM CHLORIDE 1,000 ML IV SCH ×2 (04:44→13:30)
[2022-12-24] MEDS ORDERED: MAGNESIUM SULF 50% (8.12 MEQ/2 ML-1 GM VIAL) IVPB ONE (05:45)
[2022-12-24] MEDS ORDERED: URSODIOL 300 MG CAPSULE PO SCH ×2 (06:00)
[2022-12-24] MEDS ORDERED: PIPERACILLIN/TAZOB 2.25 GM 2.25 GM in DEXTROSE 5%-WATER - 50 ML IVPB SCH (09:00)
[2022-12-24 09:20] LABS: HEMATOCRIT 33.1 % (32.4-45.2); HEMOGLOBIN 11.3 GM/dL (10.7-15.3); MCHC 34.1 g/dl (32.0-36.0); MEAN CELL VOLUME 93.8 fl (80-96); MEAN PLT VOLUME 8.3 fl (7.5-11.1); PLATELET COUNT 189 10^3/uL (134-434); RBC 3.53 M/mm3 (3.60-5.2); RDW 13.8 % (11.6-15.6); WHITE BLOOD COUNT 10.5 K/mm3 (4.0-10.0)
[2022-12-24 09:43] LABS: POTASSIUM 3.5 mmol/L (3.5-5.1)
[2022-12-24] MEDS: MIDODRINE HCL 5 MG TABLET PO SCH ×3 (09:44→17:48)
[2022-12-24 09:51] LABS: ALBUMIN 2.1 g/dl (3.4-5.0); BLOOD UREA NITROGEN 30.7 mg/dL (7-18); PHOSPHOROUS 4.5 mg/dL (2.5-4.9)
[2022-12-24 09:53] LABS: BILIRUBIN,TOTAL 0.5 mg/dL (0.2-1); TOT PROT 5.3 g/dl (6.4-8.2)
[2022-12-24 09:54] LABS: CREATININE 1.5 mg/dL (0.55-1.3)
[2022-12-24] MEDS ORDERED: MIDODRINE HCL 5 MG TABLET PO SCH ×2 (10:00→19:34)
[2022-12-24] MEDS ORDERED: TOLTERODINE TARTRATE LA 4 MG CAP.SR.24H (FP) PO SCH (10:00)
[2022-12-24] MEDS ORDERED: PATIENT'S OWN MEDICATION (NON-FORMULARY) (Trospium Chloride 20 MG) PO SCH (10:00)
[2022-12-24] MEDS ORDERED: CHOLECALCIFEROL (VIT D3) 1,000 UNIT (25 MCG) TABLET PO SCH ×2 (10:00)
[2022-12-24 10:42] LABS: CALCIUM 7.5 mg/dL (8.5-10.1)
[2022-12-24 11:48] LABS: ANISOCYTOSIS 0; MACROCYTOSIS 0; OVALOCYTE 2+; TEAR DROP CELLS 2+
[2022-12-24] MEDS ORDERED: CEFTRIAXONE 1 GM in DEXTROSE 5%-WATER - 50 ML IVPB ONE (13:00)
[2022-12-24] MEDS ORDERED: SODIUM CHLORIDE 250 ML IV STA (13:19)
[2022-12-24] MEDS ORDERED: metroNIDAZOLE 250 MG TABLET PO SCH (14:00)
[2022-12-24] MEDS: VANCOMYCIN ORAL SOLUTION 125 MG/2.5 ML PO SCH ×2 (14:00→17:49)
[2022-12-24] MEDS ORDERED: D5-NS + 20 MEQ KCL - 20 MEQ/1,000 ML INFUS.BAG IV SCH (15:00)
[2022-12-24] MEDS: KCL 10 MEQ IVPB 10 MEQ/100 ML INFUS.BAG IVPB SCH ×3 (15:20→17:48)
[2022-12-24] MEDS ORDERED: LACTATED RINGERS SOLUTION 1,000 ML/1,000 ML INFUS.BAG IV SCH (16:45)
[2022-12-24] MEDS ORDERED: ALBUMIN HUMAN 5% 500 ML IV SOLUTION IV ONE ×2 (20:00)
[2022-12-24] MEDS: CHLORHEXIDINE GLUCONATE 4% CLEANSER FOR DECOLONIZATION TP SCH (21:19)
[2022-12-24] MEDS: D5-NS + 20 MEQ KCL - 20 MEQ/1,000 ML INFUS.BAG IV SCH (21:19)
[2022-12-24] MEDS: MUPIROCIN 2% TOPICAL OINTMENT FOR DECOLONIZATION NS SCH (21:19)
[2022-12-24] MEDS ORDERED: LACTATED RINGERS SOLUTION 1000 ML INFUS.BAG IV ONE (23:19)
[2022-12-24] MEDS ORDERED: MIDODRINE HCL 5 MG TABLET PO ONE (23:45)
[2022-12-25 00:08] LABS: EPI CELLS 8 /uL (0-25.1); HYALINE CASTS 0 /uL (0-3.1); URINE APPEARANCE CLEAR; URINE BACTERIA 1 /uL (0-1359); URINE BILIRUBIN NEGATIVE (NEGATIVE); URINE COLOR YELLOW; URINE GLUCOSE (UA) NEGATIVE (NEGATIVE); URINE KETONE NEGATIVE (NEGATIVE); URINE LEUK ESTERASE NEGATIVE (NEGATIVE); URINE NITRITE NEGATIVE (NEGATIVE); URINE PROTEIN TRACE (NEGATIVE); URINE UROBILINOGEN 0.2 mg/dL (0.2-1.0); URINE WBC 19 /uL (0-25.8)
[2022-12-25 00:11] LABS: URINE RBC 37.2 /uL (0-23.9)
[2022-12-25] MEDS: VANCOMYCIN ORAL SOLUTION 125 MG/2.5 ML PO SCH ×3 (00:17→12:35)
[2022-12-25] MEDS ORDERED: VANCOMYCIN 1 GM/200 ML PREMIX BAG (RESTRICTED TO ID ONLY) IVPB SCH (03:30)
[2022-12-25] MEDS: D5-NS + 20 MEQ KCL - 20 MEQ/1,000 ML INFUS.BAG IV SCH (06:17)
[2022-12-25 07:21] LABS: HEMATOCRIT 29.3 % (32.4-45.2); HEMOGLOBIN 10.1 GM/dL (10.7-15.3); MCHC 34.4 g/dl (32.0-36.0); MEAN CELL VOLUME 93.1 fl (80-96); MEAN PLT VOLUME 8.9 fl (7.5-11.1); PLATELET COUNT 175 10^3/uL (134-434); RBC 3.14 M/mm3 (3.60-5.2); RDW 14.3 % (11.6-15.6); WHITE BLOOD COUNT 11.4 K/mm3 (4.0-10.0)
[2022-12-25 07:39] LABS: CALCIUM 8.1 mg/dL (8.5-10.1)
[2022-12-25 07:40] LABS: ALBUMIN 2.3 g/dl (3.4-5.0); BLOOD UREA NITROGEN 34.7 mg/dL (7-18); MAGNESIUM 1.7 mg/dL (1.8-2.4)
[2022-12-25 07:43] LABS: CREATININE 1.3 mg/dL (0.55-1.3); PHOSPHOROUS 3.4 mg/dL (2.5-4.9)
[2022-12-25 07:44] LABS: BILIRUBIN,TOTAL 0.3 mg/dL (0.2-1)
[2022-12-25] MEDS ORDERED: MAGNESIUM 2GM/50ML STERILE WATER IVPB IVPB ONE (07:55)
[2022-12-25] MEDS ORDERED: PIPERACILLIN/TAZOB 2.25 GM 2.25 GM in DEXTROSE 5%-WATER - 50 ML IVPB SCH (09:00)
[2022-12-25] MEDS: MUPIROCIN 2% TOPICAL OINTMENT FOR DECOLONIZATION NS SCH ×2 (10:26→21:37)
[2022-12-25] MEDS: CHOLECALCIFEROL (VIT D3) 1,000 UNIT (25 MCG) TABLET PO SCH (10:32)
[2022-12-25] MEDS: MIDODRINE HCL 5 MG TABLET PO SCH ×4 (10:32→21:37)
[2022-12-25] MEDS: TOLTERODINE TARTRATE LA 4 MG CAP.SR.24H (FP) PO SCH (10:32)
[2022-12-25] MEDS: LACTATED RINGERS SOLUTION 1,000 ML/1,000 ML INFUS.BAG IV SCH (12:00)
[2022-12-25] MEDS: CEFTRIAXONE 1 GM in DEXTROSE 5%-WATER - 50 ML IVPB SCH (16:15)
[2022-12-25] MEDS ORDERED: VANCOMYCIN ORAL SOLUTION 125 MG/2.5 ML PO SCH (18:00)
[2022-12-25] MEDS: CHLORHEXIDINE GLUCONATE 4% CLEANSER FOR DECOLONIZATION TP SCH (21:37)
[2022-12-26] MEDS: MIDODRINE HCL 5 MG TABLET PO SCH ×3 (06:02→21:39)
[2022-12-26] MEDS: VANCOMYCIN 250 MG/5 ML ORAL SOLUTION PO SCH ×4 (06:02→18:06)
[2022-12-26 07:14] LABS: HEMATOCRIT 30.6 % (32.4-45.2); HEMOGLOBIN 10.6 GM/dL (10.7-15.3); MCH 32.4 pg (25.7-33.7); MCHC 34.7 g/dl (32.0-36.0); MEAN CELL VOLUME 93.3 fl (80-96); MEAN PLT VOLUME 8.6 fl (7.5-11.1); PLATELET COUNT 215 10^3/uL (134-434); RBC 3.28 M/mm3 (3.60-5.2); RDW 14.5 % (11.6-15.6); WHITE BLOOD COUNT 14.4 K/mm3 (4.0-10.0)
[2022-12-26 07:35] LABS: BLOOD UREA NITROGEN 32.8 mg/dL (7-18); CALCIUM 9.1 mg/dL (8.5-10.1); MAGNESIUM 2.7 mg/dL (1.8-2.4)
[2022-12-26 07:38] LABS: CREATININE 1.2 mg/dL (0.55-1.3)
[2022-12-26 07:40] LABS: BILIRUBIN,TOTAL 0.2 mg/dL (0.2-1); TOT PROT 4.8 g/dl (6.4-8.2)
[2022-12-26] MEDS: MUPIROCIN 2% TOPICAL OINTMENT FOR DECOLONIZATION NS SCH ×2 (09:55→21:39)
[2022-12-26] MEDS: TOLTERODINE TARTRATE LA 4 MG CAP.SR.24H (FP) PO SCH (09:55)
[2022-12-26] MEDS: CEFTRIAXONE 1 GM in DEXTROSE 5%-WATER - 50 ML IVPB SCH (09:56)
[2022-12-26] MEDS: CHOLECALCIFEROL (VIT D3) 1,000 UNIT (25 MCG) TABLET PO SCH (09:56)
[2022-12-26] MEDS: LACTATED RINGERS SOLUTION 1,000 ML/1,000 ML INFUS.BAG IV SCH ×2 (09:56→12:53)
[2022-12-26 10:19] LABS: ANISOCYTOSIS 0; HELMET CELLS 0; HOWELL-JOLLY BODIES 0; MACROCYTOSIS 0; OVALOCYTE 0; ROULEAU 0; SICKELED CELLS 0; TARGET CELLS 0; TEAR DROP CELLS 0; TOXIC GRANULATION 0
[2022-12-26] MEDS ORDERED: ACETAMINOPHEN 1000 MG/100 ML BAG IVPB STA (20:50)
[2022-12-26] MEDS: CHLORHEXIDINE GLUCONATE 4% CLEANSER FOR DECOLONIZATION TP SCH (21:39)
[2022-12-27] MEDS ORDERED: METOPROLOL TARTRATE 5 MG/5 ML VIAL ONE (04:19)
[2022-12-27] MEDS ORDERED: METOPROLOL TARTRATE 5 MG/5 ML VIAL IVPUSH STA (04:23)
[2022-12-27] MEDS: MIDODRINE HCL 5 MG TABLET PO SCH ×3 (05:42→21:26)
[2022-12-27] MEDS: VANCOMYCIN 250 MG/5 ML ORAL SOLUTION PO SCH ×4 (05:42→17:22)
[2022-12-27] MEDS: CHOLECALCIFEROL (VIT D3) 1,000 UNIT (25 MCG) TABLET PO SCH (09:14)
[2022-12-27] MEDS: MUPIROCIN 2% TOPICAL OINTMENT FOR DECOLONIZATION NS SCH ×2 (09:16→21:23)
[2022-12-27] MEDS: TOLTERODINE TARTRATE LA 4 MG CAP.SR.24H (FP) PO SCH (09:19)
[2022-12-27] MEDS: LACTATED RINGERS SOLUTION 1,000 ML/1,000 ML INFUS.BAG IV SCH (11:38)
[2022-12-27 12:42] LABS: WHITE BLOOD COUNT 10.8 K/mm3 (4.0-10.0)
[2022-12-27 12:43] LABS: HEMOGLOBIN 11.6 GM/dL (10.7-15.3); MCH 31.2 pg (25.7-33.7); MCHC 33.1 g/dl (32.0-36.0); MEAN CELL VOLUME 94.2 fl (80-96); MEAN PLT VOLUME 7.6 fl (7.5-11.1); PLATELET COUNT 231 10^3/uL (134-434); RBC 3.72 M/mm3 (3.60-5.2); RDW 14.8 % (11.6-15.6)
[2022-12-27 13:09] LABS: ANISOCYTOSIS 0; HELMET CELLS 0; HOWELL-JOLLY BODIES 0; MACROCYTOSIS 0; OVALOCYTE 0; ROULEAU 0; SICKELED CELLS 0; TARGET CELLS 0; TEAR DROP CELLS 0; TOXIC GRANULATION 0
[2022-12-27 13:34] LABS: POTASSIUM 4.2 mmol/L (3.5-5.1)
[2022-12-27 13:36] LABS: BLOOD UREA NITROGEN 28.9 mg/dL (7-18); CALCIUM 8.8 mg/dL (8.5-10.1); MAGNESIUM 2.4 mg/dL (1.8-2.4)
[2022-12-27 13:40] LABS: CREATININE 1.1 mg/dL (0.55-1.3); PHOSPHOROUS 2.2 mg/dL (2.5-4.9)
[2022-12-27 13:41] LABS: BILIRUBIN,TOTAL 0.3 mg/dL (0.2-1); TOT PROT 5.1 g/dl (6.4-8.2)
[2022-12-27] MEDS ORDERED: INSULIN SLIDING SCALE (NOVOLOG) 1 VIAL SQ SCH (16:30)
[2022-12-27] MEDS: CHLORHEXIDINE GLUCONATE 4% CLEANSER FOR DECOLONIZATION TP SCH (21:24)
[2022-12-28] MEDS: VANCOMYCIN 250 MG/5 ML ORAL SOLUTION PO SCH ×5 (01:00→23:51)
[2022-12-28] MEDS: LACTATED RINGERS SOLUTION 1,000 ML/1,000 ML INFUS.BAG IV SCH ×3 (04:33→21:53)
[2022-12-28] MEDS: MIDODRINE HCL 5 MG TABLET PO SCH ×3 (05:33→21:50)
[2022-12-28 07:56] LABS: HEMATOCRIT 34.5 % (32.4-45.2); HEMOGLOBIN 11.3 GM/dL (10.7-15.3); MCH 31.3 pg (25.7-33.7); MCHC 32.8 g/dl (32.0-36.0); MEAN CELL VOLUME 95.4 fl (80-96); MEAN PLT VOLUME 8.3 fl (7.5-11.1); PLATELET COUNT 243 10^3/uL (134-434); RBC 3.61 M/mm3 (3.60-5.2); WHITE BLOOD COUNT 12.2 K/mm3 (4.0-10.0)
[2022-12-28 08:04] LABS: POTASSIUM 4.3 mmol/L (3.5-5.1)
[2022-12-28 08:08] LABS: BLOOD UREA NITROGEN 28.6 mg/dL (7-18); CALCIUM 8.8 mg/dL (8.5-10.1); MAGNESIUM 2.3 mg/dL (1.8-2.4)
[2022-12-28 08:11] LABS: PHOSPHOROUS 2.4 mg/dL (2.5-4.9)
[2022-12-28] MEDS: TOLTERODINE TARTRATE LA 4 MG CAP.SR.24H (FP) PO SCH (10:04)
[2022-12-28] MEDS: CHOLECALCIFEROL (VIT D3) 1,000 UNIT (25 MCG) TABLET PO SCH (10:11)
[2022-12-28] MEDS: MUPIROCIN 2% TOPICAL OINTMENT FOR DECOLONIZATION NS SCH ×2 (10:19→21:50)
[2022-12-28] MEDS: APIXABAN 2.5 MG TABLET PO SCH ×2 (14:30→21:50)
[2022-12-28] MEDS: CHLORHEXIDINE GLUCONATE 4% CLEANSER FOR DECOLONIZATION TP SCH (21:50)
[2022-12-29] MEDS: MIDODRINE HCL 5 MG TABLET PO SCH ×5 (05:44→22:17)
[2022-12-29] MEDS: VANCOMYCIN 250 MG/5 ML ORAL SOLUTION PO SCH ×4 (05:45→17:49)
[2022-12-29 07:37] LABS: HEMATOCRIT 34.4 % (32.4-45.2); HEMOGLOBIN 11.4 GM/dL (10.7-15.3); MCH 31.6 pg (25.7-33.7); MCHC 33.1 g/dl (32.0-36.0); MEAN CELL VOLUME 95.4 fl (80-96); MEAN PLT VOLUME 7.8 fl (7.5-11.1); PLATELET COUNT 243 10^3/uL (134-434); RBC 3.61 M/mm3 (3.60-5.2); RDW 15.5 % (11.6-15.6); WHITE BLOOD COUNT 13.5 K/mm3 (4.0-10.0)
[2022-12-29 07:56] LABS: POTASSIUM 4.2 mmol/L (3.5-5.1)
[2022-12-29 07:57] LABS: CALCIUM 8.7 mg/dL (8.5-10.1)
[2022-12-29 07:58] LABS: BLOOD UREA NITROGEN 28.1 mg/dL (7-18)
[2022-12-29 08:03] LABS: BILIRUBIN,TOTAL 0.4 mg/dL (0.2-1); TOT PROT 4.9 g/dl (6.4-8.2)
[2022-12-29 08:06] LABS: BILIRUBIN,DIRECT 0.2 mg/dL (0.0-0.2)
[2022-12-29 08:07] LABS: BILIRUBIN,TOTAL 0.4 mg/dL (0.2-1); TOT PROT 4.8 g/dl (6.4-8.2)
[2022-12-29 08:42] LABS: ANISOCYTOSIS 1+; MACROCYTOSIS 1+
[2022-12-29] MEDS: TOLTERODINE TARTRATE LA 4 MG CAP.SR.24H (FP) PO SCH (09:56)
[2022-12-29] MEDS: MUPIROCIN 2% TOPICAL OINTMENT FOR DECOLONIZATION NS SCH (09:56)
[2022-12-29] MEDS: CHOLECALCIFEROL (VIT D3) 1,000 UNIT (25 MCG) TABLET PO SCH (09:57)
[2022-12-29] MEDS: APIXABAN 2.5 MG TABLET PO SCH ×3 (09:57→22:18)
[2022-12-29] MEDS: LACTATED RINGERS SOLUTION 1,000 ML/1,000 ML INFUS.BAG IV SCH (11:25)
[2022-12-29] MEDS ORDERED: AMINO ACIDS 4.25%/D5W 1,000 ML IV SCH (19:00)
[2022-12-29] MEDS: CHLORHEXIDINE GLUCONATE 4% CLEANSER FOR DECOLONIZATION TP SCH (21:54)
[2022-12-29] MEDS ORDERED: ACETAMINOPHEN 1000 MG/100 ML BAG IVPB ONE (23:51)
[2022-12-30] MEDS: VANCOMYCIN 250 MG/5 ML ORAL SOLUTION PO SCH ×4 (00:06→17:02)
[2022-12-30] MEDS: MIDODRINE HCL 5 MG TABLET PO SCH ×3 (06:10→22:57)
[2022-12-30 07:08] LABS: HEMATOCRIT 32.5 % (32.4-45.2); HEMOGLOBIN 10.8 GM/dL (10.7-15.3); MCH 31.8 pg (25.7-33.7); MCHC 33.3 g/dl (32.0-36.0); MEAN CELL VOLUME 95.5 fl (80-96); MEAN PLT VOLUME 7.9 fl (7.5-11.1); PLATELET COUNT 237 10^3/uL (134-434); RDW 15.7 % (11.6-15.6); WHITE BLOOD COUNT 15.9 K/mm3 (4.0-10.0)
[2022-12-30 07:21] LABS: ARTERIAL BLD GAS O2 SATURATION 93.7 % (95-98); ARTERIAL BLOOD GAS BASE EXCESS -4.2 mmol/L (-2-2); ARTERIAL BLOOD GAS PO2 87.8 mmHg (80-100)
[2022-12-30 07:27] LABS: ALLENS TEST POSITIVE
[2022-12-30 07:32] LABS: ARTERIAL BLOOD GAS pH 7.164 (7.350-7.450)
[2022-12-30 07:32] LABS: POTASSIUM 4.2 mmol/L (3.5-5.1)
[2022-12-30 07:35] LABS: BLOOD UREA NITROGEN 34.7 mg/dL (7-18)
[2022-12-30 07:36] LABS: MAGNESIUM 2.2 mg/dL (1.8-2.4)
[2022-12-30 07:38] LABS: CREATININE 1.3 mg/dL (0.55-1.3)
[2022-12-30 07:39] LABS: BILIRUBIN,TOTAL 0.3 mg/dL (0.2-1); TOT PROT 4.9 g/dl (6.4-8.2)
[2022-12-30] MEDS ORDERED: SODIUM PHOSPHATE - 15 MM in DEXTROSE 5%-WATER - 250 ML IVPB ONE (09:03)
[2022-12-30] MEDS ORDERED: FUROSEMIDE 40 MG/4 ML INJECTABLE VIAL IVPUSH ONE (09:21)
[2022-12-30] MEDS: APIXABAN 2.5 MG TABLET PO SCH ×2 (09:23→22:57)
[2022-12-30] MEDS: TOLTERODINE TARTRATE LA 4 MG CAP.SR.24H (FP) PO SCH (09:23)
[2022-12-30] MEDS: CHOLECALCIFEROL (VIT D3) 1,000 UNIT (25 MCG) TABLET PO SCH (09:25)
[2022-12-30] MEDS ORDERED: VANCOMYCIN/WATER FOR INJ (PEG) 1,000 MG/200 ML BAG IVPB ONE (10:58)
[2022-12-30] MEDS: ALBUTEROL SO4 2.5/IPRATROPIUM 0.5 INH SOL 3 ML VIAL.NEB. NEB SCH ×3 (11:23→20:30)
[2022-12-30] MEDS ORDERED: PROPOFOL 200 MG/20 ML VIAL IVPUSH ONE (11:39)
[2022-12-30] MEDS ORDERED: ROCURONIUM BROMIDE 50 MG/5 ML VIAL IVPUSH ONE (11:40)
[2022-12-30] MEDS ORDERED: ROCURONIUM BROMIDE 50 MG/5 ML VIAL ONE (11:41)
[2022-12-30] MEDS ORDERED: RAPID SEQUENCE INTUBATION KIT NR ONE (11:42)
[2022-12-30] MEDS ORDERED: SUCCINYLCHOLINE CHLORIDE 200 MG/10 ML VIAL IVPUSH ONE (11:45)
[2022-12-30] MEDS: PIPERACILLIN/TAZOB 3.375 GM 3.375 GM in DEXTROSE 5%-WATER - 50 ML IVPB SCH ×2 (12:00→17:02)
[2022-12-30] MEDS ORDERED: PROPOFOL 1,000,000 MCG/100 ML VIAL IVPB SCH (12:00)
[2022-12-30] MEDS ORDERED: SODIUM CHLORIDE 1,000 ML IV STA (12:02)
[2022-12-30] MEDS ORDERED: MIDAZOLAM HCL 2 MG/2 ML SINGLE DOSE VIAL IVPUSH ONE (12:12)
[2022-12-30] MEDS ORDERED: MIDAZOLAM HCL 2 MG/2 ML SINGLE DOSE VIAL ONE (12:14)
[2022-12-30] MEDS: PROPOFOL 1,000,000 MCG/100 ML VIAL IVPB SCH ×2 (12:30→18:23)
[2022-12-30] MEDS: MUPIROCIN 2% TOPICAL OINTMENT FOR DECOLONIZATION NS SCH ×2 (12:44→22:57)
[2022-12-30] MEDS: DEXMEDETOMIDINE PREMIX 400 MCG/100 ML BAG IVPB SCH ×2 (12:46→18:23)
[2022-12-30 15:59] LABS: URINE APPEARANCE CLEAR; URINE BILIRUBIN NEGATIVE (NEGATIVE); URINE COLOR YELLOW; URINE GLUCOSE (UA) NEGATIVE (NEGATIVE); URINE KETONE NEGATIVE (NEGATIVE); URINE LEUK ESTERASE NEGATIVE (NEGATIVE); URINE NITRITE NEGATIVE (NEGATIVE); URINE PROTEIN TRACE (NEGATIVE); URINE UROBILINOGEN 0.2 mg/dL (0.2-1.0)
[2022-12-30 18:21] VITALS: BMI 31.1
[2022-12-30] MEDS ORDERED: CHLORHEXIDINE GLUCONATE 4% CLEANSER FOR DECOLONIZATION TP SCH (22:00)
[2022-12-30] MEDS: CHLORHEXIDINE GLUCONATE 4% CLEANSER FOR DECOLONIZATION TP SCH (22:57)
[2022-12-31] MEDS ORDERED: TRIMETHOBENZAMIDE HCL 200MG/2ML INJ IM PRN (00:45)
[2022-12-31] MEDS: PIPERACILLIN/TAZOB 3.375 GM 3.375 GM in DEXTROSE 5%-WATER - 50 ML IVPB SCH ×3 (01:09→17:11)
[2022-12-31] MEDS: VANCOMYCIN 250 MG/5 ML ORAL SOLUTION PO SCH ×5 (01:58→23:12)
[2022-12-31 06:03] LABS: ARTERIAL BLD GAS O2 SATURATION 98.2 % (95-98); ARTERIAL BLOOD GAS PO2 113.1 mmHg (80-100); ARTERIAL BLOOD GAS pH 7.427 (7.350-7.450)
[2022-12-31 06:04] LABS: ALLENS TEST POSITIVE
[2022-12-31 06:05] LABS: VENT MODE V-A/C; VENT RATE 12
[2022-12-31 06:39] LABS: BASO % 0.1 % (0-2.0); HEMATOCRIT 29.5 % (32.4-45.2); HEMOGLOBIN 10.2 GM/dL (10.7-15.3); LYMPH % 4.8 % (8-40); MCH 32.2 pg (25.7-33.7); MCHC 34.7 g/dl (32.0-36.0); MEAN CELL VOLUME 92.9 fl (80-96); MEAN PLT VOLUME 7.9 fl (7.5-11.1); NEUT % 89.1 % (42.8-82.8); PLATELET COUNT 209 10^3/uL (134-434); RBC 3.17 M/mm3 (3.60-5.2); RDW 14.7 % (11.6-15.6); WHITE BLOOD COUNT 16.5 K/mm3 (4.0-10.0)
[2022-12-31] MEDS: MIDODRINE HCL 5 MG TABLET PO SCH ×3 (06:41→21:35)
[2022-12-31 06:52] LABS: CHLORIDE 116 mmol/L (98-107); POTASSIUM 3.2 mmol/L (3.5-5.1); SODIUM 148 mmol/L (136-145)
[2022-12-31 06:56] LABS: ALBUMIN 1.7 g/dl (3.4-5.0); CALCIUM 8.1 mg/dL (8.5-10.1)
[2022-12-31 06:57] LABS: ANION GAP 3 MMOL/L (8-16); BLOOD UREA NITROGEN 31.3 mg/dL (7-18); CO2 29 mmol/L (21-32); GLUCOSE,RANDOM 112 mg/dL (74-106); MAGNESIUM 1.9 mg/dL (1.8-2.4)
[2022-12-31 06:59] LABS: CREATININE 1.1 mg/dL (0.55-1.3); SGOT/AST 21 U/L (15-37)
[2022-12-31 07:00] LABS: SGPT/ALT 15 U/L (13-61)
[2022-12-31 07:01] LABS: BILIRUBIN,TOTAL 0.5 mg/dL (0.2-1); TOT PROT 4.2 g/dl (6.4-8.2)
[2022-12-31 07:02] LABS: ALK PHOS 51 U/L (45-117); PHOSPHOROUS 0.8 mg/dL (2.5-4.9)
[2022-12-31] MEDS: ALBUTEROL SO4 2.5/IPRATROPIUM 0.5 INH SOL 3 ML VIAL.NEB. NEB SCH ×4 (07:48→20:46)
[2022-12-31] MEDS ORDERED: POTASSIUM PHOSPHATE 30 MM in SODIUM CHLORIDE 250 ML IVPB ONE (09:00)
[2022-12-31] MEDS: CHOLECALCIFEROL (VIT D3) 1,000 UNIT (25 MCG) TABLET PO SCH (09:12)
[2022-12-31] MEDS: KCL 10 MEQ IVPB 10 MEQ/100 ML INFUS.BAG IVPB SCH ×3 (09:20→11:42)
[2022-12-31] MEDS: MUPIROCIN 2% TOPICAL OINTMENT FOR DECOLONIZATION NS SCH ×2 (09:21→21:35)
[2022-12-31] MEDS ORDERED: APIXABAN 2.5 MG TABLET PO SCH (10:00)
[2022-12-31] MEDS ORDERED: TOLTERODINE TARTRATE LA 4 MG CAP.SR.24H (FP) PO SCH (10:00)
[2022-12-31] MEDS: PROPOFOL 1,000,000 MCG/100 ML VIAL IVPB SCH (17:12)
[2022-12-31] MEDS: DEXMEDETOMIDINE PREMIX 400 MCG/100 ML BAG IVPB SCH ×2 (17:52→19:00)
[2022-12-31] MEDS: LACTATED RINGERS SOLUTION 1,000 ML/1,000 ML INFUS.BAG IV SCH (18:12)
[2022-12-31 18:54] LABS: POTASSIUM 3.8 mmol/L (3.5-5.1)
[2022-12-31 18:56] LABS: BLOOD UREA NITROGEN 26.6 mg/dL (7-18)
[2022-12-31 18:59] LABS: CREATININE 0.9 mg/dL (0.55-1.3); PHOSPHOROUS 2.3 mg/dL (2.5-4.9)
[2022-12-31] MEDS: APIXABAN 5 MG TABLET PO SCH (21:34)
[2022-12-31] MEDS: CHLORHEXIDINE GLUCONATE 4% CLEANSER FOR DECOLONIZATION TP SCH (21:35)
[2023-01-01] MEDS: PIPERACILLIN/TAZOB 3.375 GM 3.375 GM in DEXTROSE 5%-WATER - 50 ML IVPB SCH ×3 (02:06→17:06)
[2023-01-01] MEDS: VANCOMYCIN 250 MG/5 ML ORAL SOLUTION PO SCH ×4 (06:00→23:53)
[2023-01-01] MEDS: LACTATED RINGERS SOLUTION 1,000 ML/1,000 ML INFUS.BAG IV SCH (06:02)
[2023-01-01] MEDS: DEXMEDETOMIDINE PREMIX 400 MCG/100 ML BAG IVPB SCH ×4 (06:02→21:26)
[2023-01-01] MEDS: MIDODRINE HCL 5 MG TABLET PO SCH ×3 (06:03→21:28)
[2023-01-01 07:07] LABS: HEMATOCRIT 31.1 % (32.4-45.2); HEMOGLOBIN 10.9 GM/dL (10.7-15.3); MCH 31.9 pg (25.7-33.7); MEAN CELL VOLUME 91.3 fl (80-96); MEAN PLT VOLUME 8.1 fl (7.5-11.1); PLATELET COUNT 205 10^3/uL (134-434); RBC 3.41 M/mm3 (3.60-5.2); RDW 14.3 % (11.6-15.6)
[2023-01-01 07:26] LABS: POTASSIUM 3.6 mmol/L (3.5-5.1)
[2023-01-01 07:28] LABS: BLOOD UREA NITROGEN 21.4 mg/dL (7-18); CALCIUM 7.8 mg/dL (8.5-10.1); MAGNESIUM 1.8 mg/dL (1.8-2.4)
[2023-01-01 07:31] LABS: PHOSPHOROUS 1.2 mg/dL (2.5-4.9)
[2023-01-01 07:32] LABS: CREATININE 0.8 mg/dL (0.55-1.3)
[2023-01-01] MEDS: ALBUTEROL SO4 2.5/IPRATROPIUM 0.5 INH SOL 3 ML VIAL.NEB. NEB SCH ×4 (07:43→20:20)
[2023-01-01] MEDS ORDERED: POTASSIUM PHOSPHATE 30 MM in SODIUM CHLORIDE 250 ML IVPB ONE (08:20)
[2023-01-01] MEDS: CHOLECALCIFEROL (VIT D3) 1,000 UNIT (25 MCG) TABLET PO SCH (09:29)
[2023-01-01] MEDS: APIXABAN 5 MG TABLET PO SCH (09:29)
[2023-01-01] MEDS: MUPIROCIN 2% TOPICAL OINTMENT FOR DECOLONIZATION NS SCH ×2 (09:29→21:26)
[2023-01-01] MEDS: DEXTROSE 5%-LACTATED RINGERS 1,000 ML IV SCH ×2 (11:27→23:56)
[2023-01-01 16:32] LABS: HEMATOCRIT 32.7 % (32.4-45.2); HEMOGLOBIN 10.9 GM/dL (10.7-15.3); MCH 30.5 pg (25.7-33.7); MCHC 33.2 g/dl (32.0-36.0); MEAN CELL VOLUME 91.8 fl (80-96); MEAN PLT VOLUME 7.9 fl (7.5-11.1); PLATELET COUNT 245 10^3/uL (134-434); RBC 3.56 M/mm3 (3.60-5.2); RDW 14.3 % (11.6-15.6); WHITE BLOOD COUNT 16.6 K/mm3 (4.0-10.0)
[2023-01-01 16:40] LABS: INR 2.84 (0.83-1.09); PROTHROMBIN TIME (PATIENT) 32.6 SEC (9.7-13.0)
[2023-01-01 16:42] LABS: ACTIVATED PTT 33.8 SECONDS (25.2-36.5)
[2023-01-01 18:57] LABS: HEMATOCRIT 28.7 % (32.4-45.2); HEMOGLOBIN 9.4 GM/dL (10.7-15.3); MCH 29.9 pg (25.7-33.7); MCHC 32.8 g/dl (32.0-36.0); MEAN CELL VOLUME 91.3 fl (80-96); MEAN PLT VOLUME 7.6 fl (7.5-11.1); PLATELET COUNT 218 10^3/uL (134-434); RBC 3.14 M/mm3 (3.60-5.2); RDW 14.2 % (11.6-15.6); WHITE BLOOD COUNT 14.4 K/mm3 (4.0-10.0)
[2023-01-01 20:09] LABS: ANISOCYTOSIS 1+; MACROCYTOSIS 1+; PLATELET ESTIMATE NORMAL
[2023-01-01] MEDS: CHLORHEXIDINE GLUCONATE 4% CLEANSER FOR DECOLONIZATION TP SCH (21:26)
[2023-01-01] MEDS: PANTOPRAZOLE SODIUM 40 MG VIAL IVPUSH SCH (21:27)
[2023-01-02] MEDS: PIPERACILLIN/TAZOB 3.375 GM 3.375 GM in DEXTROSE 5%-WATER - 50 ML IVPB SCH ×3 (02:18→18:14)
[2023-01-02] MEDS: MIDODRINE HCL 5 MG TABLET PO SCH ×4 (05:44→18:14)
[2023-01-02] MEDS: VANCOMYCIN 250 MG/5 ML ORAL SOLUTION PO SCH ×4 (05:45→23:09)
[2023-01-02 07:43] LABS: BASO % 0.1 % (0-2.0); HEMATOCRIT 25.8 % (32.4-45.2); HEMOGLOBIN 8.9 GM/dL (10.7-15.3); MCH 31.9 pg (25.7-33.7); MCHC 34.5 g/dl (32.0-36.0); MEAN CELL VOLUME 92.5 fl (80-96); MEAN PLT VOLUME 8.5 fl (7.5-11.1); MONO % 7.1 % (3.8-10.2); NEUT % 81.8 % (42.8-82.8); PLATELET COUNT 184 10^3/uL (134-434); RBC 2.79 M/mm3 (3.60-5.2); RDW 13.8 % (11.6-15.6); WHITE BLOOD COUNT 11.9 K/mm3 (4.0-10.0)
[2023-01-02 07:50] LABS: INR 2.66 (0.83-1.09); PROTHROMBIN TIME (PATIENT) 30.6 SEC (9.7-13.0)
[2023-01-02 08:07] LABS: POTASSIUM 3.5 mmol/L (3.5-5.1)
[2023-01-02 08:12] LABS: BLOOD UREA NITROGEN 14.7 mg/dL (7-18)
[2023-01-02 08:14] LABS: CALCIUM 7.5 mg/dL (8.5-10.1); CREATININE 0.6 mg/dL (0.55-1.3); MAGNESIUM 1.8 mg/dL (1.8-2.4)
[2023-01-02 08:15] LABS: PHOSPHOROUS 1.4 mg/dL (2.5-4.9)
[2023-01-02 08:16] LABS: ALBUMIN 1.4 g/dl (3.4-5.0)
[2023-01-02 08:19] LABS: BILIRUBIN,DIRECT 0.2 mg/dL (0.0-0.2)
[2023-01-02 08:20] LABS: BILIRUBIN,TOTAL 0.6 mg/dL (0.2-1)
[2023-01-02 08:21] LABS: TOT PROT 3.9 g/dl (6.4-8.2)
[2023-01-02] MEDS: ALBUTEROL SO4 2.5/IPRATROPIUM 0.5 INH SOL 3 ML VIAL.NEB. NEB SCH ×4 (08:33→20:45)
[2023-01-02] MEDS: MUPIROCIN 2% TOPICAL OINTMENT FOR DECOLONIZATION NS SCH ×2 (09:12→21:25)
[2023-01-02] MEDS: PANTOPRAZOLE SODIUM 40 MG VIAL IVPUSH SCH ×2 (09:13→21:21)
[2023-01-02] MEDS: CHOLECALCIFEROL (VIT D3) 1,000 UNIT (25 MCG) TABLET PO SCH (09:13)
[2023-01-02] MEDS: DEXMEDETOMIDINE PREMIX 400 MCG/100 ML BAG IVPB SCH ×2 (09:16→15:33)
[2023-01-02] MEDS: DEXTROSE 5%-LACTATED RINGERS 1,000 ML IV SCH (15:33)
[2023-01-02] MEDS: CHLORHEXIDINE GLUCONATE 4% CLEANSER FOR DECOLONIZATION TP SCH (21:21)
[2023-01-03] MEDS: PIPERACILLIN/TAZOB 3.375 GM 3.375 GM in DEXTROSE 5%-WATER - 50 ML IVPB SCH ×3 (01:32→17:17)
[2023-01-03 03:47] LABS: BASO % 0.2 % (0-2.0); EOS % 1.2 % (0-4.5); HEMATOCRIT 27.4 % (32.4-45.2); HEMOGLOBIN 9.1 GM/dL (10.7-15.3); LYMPH % 9.9 % (8-40); MCH 30.7 pg (25.7-33.7); MCHC 33.4 g/dl (32.0-36.0); MEAN CELL VOLUME 92.1 fl (80-96); MEAN PLT VOLUME 8.3 fl (7.5-11.1); MONO % 10.3 % (3.8-10.2); NEUT % 78.4 % (42.8-82.8); PLATELET COUNT 250 10^3/uL (134-434); RBC 2.98 M/mm3 (3.60-5.2); RDW 14.2 % (11.6-15.6); WHITE BLOOD COUNT 14.4 K/mm3 (4.0-10.0)
[2023-01-03 04:07] LABS: CHLORIDE 115 mmol/L (98-107); POTASSIUM 3.3 mmol/L (3.5-5.1); SODIUM 148 mmol/L (136-145)
[2023-01-03 04:08] LABS: ALBUMIN 1.5 g/dl (3.4-5.0)
[2023-01-03 04:10] LABS: ANION GAP 5 MMOL/L (8-16); BLOOD UREA NITROGEN 10.8 mg/dL (7-18); CO2 28 mmol/L (21-32); GLUCOSE,RANDOM 98 mg/dL (74-106); MAGNESIUM 1.7 mg/dL (1.8-2.4)
[2023-01-03 04:12] LABS: CREATININE 0.6 mg/dL (0.55-1.3)
[2023-01-03 04:13] LABS: SGOT/AST 17 U/L (15-37); SGPT/ALT 11 U/L (13-61)
[2023-01-03 04:14] LABS: ALK PHOS 43 U/L (45-117); BILIRUBIN,TOTAL 0.6 mg/dL (0.2-1); TOT PROT 4.4 g/dl (6.4-8.2)
[2023-01-03] MEDS: VANCOMYCIN 250 MG/5 ML ORAL SOLUTION PO SCH ×4 (05:48→23:12)
[2023-01-03] MEDS ORDERED: METOPROLOL TARTRATE 5 MG/5 ML VIAL ONE (07:15)
[2023-01-03] MEDS ORDERED: MAGNESIUM SULFATE IN WATER 2 GM/50 ML IVPB IVPB ONE (07:30)
[2023-01-03] MEDS: METOPROLOL TARTRATE 5 MG/5 ML VIAL IVPUSH PRN ×2 (07:30→17:17)
[2023-01-03] MEDS: DEXTROSE 5%-LACTATED RINGERS 1,000 ML IV SCH ×2 (07:30→10:57)
[2023-01-03] MEDS: ALBUTEROL SO4 2.5/IPRATROPIUM 0.5 INH SOL 3 ML VIAL.NEB. NEB SCH ×4 (09:09→20:05)
[2023-01-03] MEDS: PANTOPRAZOLE SODIUM 40 MG VIAL IVPUSH SCH ×2 (09:11→21:08)
[2023-01-03] MEDS: CHOLECALCIFEROL (VIT D3) 1,000 UNIT (25 MCG) TABLET PO SCH (09:11)
[2023-01-03] MEDS: MUPIROCIN 2% TOPICAL OINTMENT FOR DECOLONIZATION NS SCH ×2 (09:12→21:35)
[2023-01-03] MEDS ORDERED: POTASSIUM PHOSPHATE 30 MM in DEXTROSE 5%-WATER - 250 ML IVPB ONE (09:30)
[2023-01-03] MEDS: AMINO ACIDS 4.25%/D5W 1,000 ML IV SCH (17:56)
[2023-01-03] MEDS: APIXABAN 5 MG TABLET PO SCH (21:07)
[2023-01-03] MEDS: CHLORHEXIDINE GLUCONATE 4% CLEANSER FOR DECOLONIZATION TP SCH (21:08)
[2023-01-03] MEDS: FAT EMULSION/OLIVE/SOY/PHOSPHO 250 ML IV SCH (21:25)
[2023-01-03] MEDS ORDERED: FAT EMULSION/OLIVE/SOY (CLINOLIPID) 250 ML EMULSION IV SCH (22:00)
[2023-01-04] MEDS: METOPROLOL TARTRATE 5 MG/5 ML VIAL IVPUSH PRN ×2 (00:10→05:51)
[2023-01-04] MEDS: PIPERACILLIN/TAZOB 3.375 GM 3.375 GM in DEXTROSE 5%-WATER - 50 ML IVPB SCH ×3 (02:52→17:38)
[2023-01-04] MEDS: VANCOMYCIN 250 MG/5 ML ORAL SOLUTION PO SCH ×4 (05:11→23:18)
[2023-01-04 07:17] LABS: HEMATOCRIT 27.4 % (32.4-45.2); HEMOGLOBIN 9.1 GM/dL (10.7-15.3); MCHC 33.2 g/dl (32.0-36.0); MEAN CELL VOLUME 93.4 fl (80-96); PLATELET COUNT 286 10^3/uL (134-434); RBC 2.94 M/mm3 (3.60-5.2); RDW 14.6 % (11.6-15.6); WHITE BLOOD COUNT 13.1 K/mm3 (4.0-10.0)
[2023-01-04 07:20] LABS: POTASSIUM 3.3 mmol/L (3.5-5.1)
[2023-01-04 07:25] LABS: CALCIUM 7.9 mg/dL (8.5-10.1)
[2023-01-04 07:27] LABS: BLOOD UREA NITROGEN 10.8 mg/dL (7-18); MAGNESIUM 2.2 mg/dL (1.8-2.4)
[2023-01-04 07:30] LABS: CREATININE 0.6 mg/dL (0.55-1.3); PHOSPHOROUS 1.8 mg/dL (2.5-4.9)
[2023-01-04] MEDS ORDERED: POTASSIUM PHOSPHATE 30 MM in DEXTROSE 5%-WATER - 250 ML IVPB ONE (07:35)
[2023-01-04 08:10] LABS: ALBUMIN 1.6 g/dl (3.4-5.0)
[2023-01-04 08:12] LABS: BILIRUBIN,DIRECT 0.2 mg/dL (0.0-0.2)
[2023-01-04 08:14] LABS: BILIRUBIN,TOTAL 0.5 mg/dL (0.2-1); TOT PROT 4.8 g/dl (6.4-8.2)
[2023-01-04] MEDS: ALBUTEROL SO4 2.5/IPRATROPIUM 0.5 INH SOL 3 ML VIAL.NEB. NEB SCH ×4 (09:00→20:35)
[2023-01-04] MEDS: MUPIROCIN 2% TOPICAL OINTMENT FOR DECOLONIZATION NS SCH (09:30)
[2023-01-04] MEDS: PANTOPRAZOLE SODIUM 40 MG VIAL IVPUSH SCH (09:31)
[2023-01-04] MEDS: CHOLECALCIFEROL (VIT D3) 1,000 UNIT (25 MCG) TABLET PO SCH (09:31)
[2023-01-04] MEDS ORDERED: METOPROLOL TARTRATE 5 MG/5 ML VIAL IVPUSH PRN (11:23)
[2023-01-04] MEDS ORDERED: METOPROLOL TARTRATE 5 MG/5 ML VIAL ONE (11:27)
[2023-01-04] MEDS ORDERED: FUROSEMIDE 40 MG/4 ML INJECTABLE VIAL IVPUSH SCH (11:43)
[2023-01-04] MEDS: METOPROLOL TARTRATE 50 MG TABLET (FP) PO SCH ×2 (11:51→21:13)
[2023-01-04] MEDS: APIXABAN 2.5 MG TABLET PO SCH ×2 (11:51→21:14)
[2023-01-04] MEDS: ALBUMIN HUMAN 25% 100 ML VIAL IV SCH ×2 (12:37→21:13)
[2023-01-04] MEDS: AMINO ACIDS 4.25%/D5W 1,000 ML IV SCH (17:39)
[2023-01-04] MEDS: FAT EMULSION/OLIVE/SOY/PHOSPHO 250 ML IV SCH (21:12)
[2023-01-04] MEDS: CHLORHEXIDINE GLUCONATE 4% CLEANSER FOR DECOLONIZATION TP SCH (21:14)
[2023-01-04] MEDS: FUROSEMIDE 40 MG/4 ML INJECTABLE VIAL IVPUSH SCH (22:06)
[2023-01-05] MEDS: PIPERACILLIN/TAZOB 3.375 GM 3.375 GM in DEXTROSE 5%-WATER - 50 ML IVPB SCH ×3 (02:32→17:35)
[2023-01-05] MEDS: VANCOMYCIN 250 MG/5 ML ORAL SOLUTION PO SCH ×3 (05:34→17:34)
[2023-01-05] MEDS: METOPROLOL TARTRATE 5 MG/5 ML VIAL IVPUSH PRN ×2 (06:36→16:00)
[2023-01-05 06:57] LABS: HEMATOCRIT 26.1 % (32.4-45.2); MCH 31.8 pg (25.7-33.7); MCHC 34.6 g/dl (32.0-36.0); MEAN CELL VOLUME 92.1 fl (80-96); MEAN PLT VOLUME 8.7 fl (7.5-11.1); PLATELET COUNT 270 10^3/uL (134-434); RBC 2.83 M/mm3 (3.60-5.2); RDW 14.2 % (11.6-15.6); WHITE BLOOD COUNT 13.4 K/mm3 (4.0-10.0)
[2023-01-05 07:14] LABS: POTASSIUM 3.3 mmol/L (3.5-5.1)
[2023-01-05 07:18] LABS: MAGNESIUM 1.8 mg/dL (1.8-2.4)
[2023-01-05 07:22] LABS: BILIRUBIN,TOTAL 0.6 mg/dL (0.2-1); CREATININE 0.6 mg/dL (0.55-1.3); TOT PROT 5.8 g/dl (6.4-8.2)
[2023-01-05 07:24] LABS: ALBUMIN 2.6 g/dl (3.4-5.0)
[2023-01-05] MEDS: ALBUTEROL SO4 2.5/IPRATROPIUM 0.5 INH SOL 3 ML VIAL.NEB. NEB SCH ×4 (07:50→20:00)
[2023-01-05] MEDS: FUROSEMIDE 40 MG/4 ML INJECTABLE VIAL IVPUSH SCH (09:04)
[2023-01-05] MEDS: CHOLECALCIFEROL (VIT D3) 1,000 UNIT (25 MCG) TABLET PO SCH (09:04)
[2023-01-05] MEDS: METOPROLOL TARTRATE 50 MG TABLET (FP) PO SCH ×2 (09:04→21:05)
[2023-01-05] MEDS: FAMOTIDINE 20 MG TABLET PO SCH (09:04)
[2023-01-05] MEDS ORDERED: POTASSIUM PHOSPHATE 30 MM in DEXTROSE 5%-WATER - 250 ML IVPB ONE (09:07)
[2023-01-05] MEDS ORDERED: METOPROLOL TARTRATE 5 MG/5 ML VIAL IVPUSH ONE (09:22)
[2023-01-05] MEDS: APIXABAN 2.5 MG TABLET PO SCH ×2 (09:25→21:05)
[2023-01-05] MEDS: AMINO ACIDS 4.25%/D5W 1,000 ML IV SCH (14:52)
[2023-01-05] MEDS ORDERED: LORazepam 0.5 MG TABLET PO PRN (18:29)
[2023-01-05] MEDS: FAT EMULSION/OLIVE/SOY/PHOSPHO 250 ML IV SCH (21:06)
[2023-01-05] MEDS: CHLORHEXIDINE GLUCONATE 4% CLEANSER FOR DECOLONIZATION TP SCH (21:06)
[2023-01-05] MEDS: KCL 10 MEQ IVPB 10 MEQ/100 ML INFUS.BAG IVPB SCH (21:06)
[2023-01-06] MEDS: KCL 10 MEQ IVPB 10 MEQ/100 ML INFUS.BAG IVPB SCH ×3 (00:05→12:16)
[2023-01-06] MEDS: VANCOMYCIN 250 MG/5 ML ORAL SOLUTION PO SCH ×5 (01:25→23:07)
[2023-01-06] MEDS: PIPERACILLIN/TAZOB 3.375 GM 3.375 GM in DEXTROSE 5%-WATER - 50 ML IVPB SCH ×3 (01:48→18:00)
[2023-01-06 07:22] LABS: HEMATOCRIT 28.4 % (32.4-45.2); HEMOGLOBIN 9.7 GM/dL (10.7-15.3); MCHC 34.1 g/dl (32.0-36.0); MEAN CELL VOLUME 93.6 fl (80-96); MEAN PLT VOLUME 8.6 fl (7.5-11.1); PLATELET COUNT 339 10^3/uL (134-434); RBC 3.03 M/mm3 (3.60-5.2); RDW 14.5 % (11.6-15.6); WHITE BLOOD COUNT 14.8 K/mm3 (4.0-10.0)
[2023-01-06 07:58] LABS: POTASSIUM 3.2 mmol/L (3.5-5.1)
[2023-01-06 08:16] LABS: MAGNESIUM 1.6 mg/dL (1.8-2.4)
[2023-01-06 08:19] LABS: CREATININE 0.7 mg/dL (0.55-1.3)
[2023-01-06] MEDS: ALBUTEROL SO4 2.5/IPRATROPIUM 0.5 INH SOL 3 ML VIAL.NEB. NEB SCH ×4 (08:30→20:40)
[2023-01-06] MEDS: METOPROLOL TARTRATE 50 MG TABLET (FP) PO SCH ×2 (09:52→21:24)
[2023-01-06] MEDS: APIXABAN 2.5 MG TABLET PO SCH (09:52)
[2023-01-06] MEDS: FAMOTIDINE 20 MG TABLET PO SCH (09:52)
[2023-01-06] MEDS: CHOLECALCIFEROL (VIT D3) 1,000 UNIT (25 MCG) TABLET PO SCH (09:52)
[2023-01-06] MEDS ORDERED: FUROSEMIDE 40 MG/4 ML INJECTABLE VIAL IVPUSH SCH (10:00)
[2023-01-06] MEDS ORDERED: POTASSIUM PHOSPHATE 15 MM in DEXTROSE 5%-WATER - 100 ML IVPB ONE (10:00)
[2023-01-06] MEDS ORDERED: MAGNESIUM SULF 50% (8.12 MEQ/2 ML-1 GM VIAL) IVPB ONE (10:07)
[2023-01-06] MEDS ORDERED: METOPROLOL TARTRATE 50 MG TABLET (FP) PO SCH (11:16)
[2023-01-06] MEDS: METOPROLOL TARTRATE 50 MG, METOPROLOL TARTRATE 25 MG PO SCH ×2 (12:19→21:33)
[2023-01-06] MEDS ORDERED: TRIMETHOBENZAMIDE HCL 200MG/2ML INJ IM PRN (13:09)
[2023-01-06] MEDS: AMINO ACIDS 4.25%/D5W 1,000 ML IV SCH (13:30)
[2023-01-06] MEDS ORDERED: POTASSIUM CHLORIDE 20 MEQ in AMINO ACIDS 4.25%/D5W 1,000 ML IV SCH (14:00)
[2023-01-06] MEDS ORDERED: PIPERACILLIN/TAZOB 3.375 GM 3.375 GM in DEXTROSE 5%-WATER - 50 ML IVPB SCH (18:00)
[2023-01-06] MEDS ORDERED: APIXABAN 2.5 MG TABLET PO SCH (22:00)
[2023-01-06] MEDS ORDERED: CHLORHEXIDINE GLUCONATE 4% CLEANSER FOR DECOLONIZATION TP SCH (22:00)
[2023-01-06] MEDS ORDERED: FAT EMULSION/OLIVE/SOY/PHOSPHO 250 ML IV SCH (22:00)
[2023-01-07] MEDS: PIPERACILLIN/TAZOB 3.375 GM 3.375 GM in DEXTROSE 5%-WATER - 50 ML IVPB SCH (01:31)
[2023-01-07] MEDS ORDERED: LACTATED RINGERS SOLUTION 1,000 ML/1,000 ML INFUS.BAG IV STA (05:08)
[2023-01-07] MEDS ORDERED: PHENYLEPHRINE NS PREMIX 50,000 MCG/500 ML BAG CVP SCH (05:15)
[2023-01-07] MEDS ORDERED: NOREPINEPHRINE BITARTRATE/D5W 8 MG/250 ML BAG IVPB SCH (05:30)
[2023-01-07 05:32] LABS: HEMATOCRIT 24.4 % (32.4-45.2); HEMOGLOBIN 8.4 GM/dL (10.7-15.3); MCH 33.4 pg (25.7-33.7); MCHC 34.3 g/dl (32.0-36.0); MEAN CELL VOLUME 97.2 fl (80-96); MEAN PLT VOLUME 8.8 fl (7.5-11.1); PLATELET COUNT 298 10^3/uL (134-434); RBC 2.52 M/mm3 (3.60-5.2); RDW 15.4 % (11.6-15.6); WHITE BLOOD COUNT 12.2 K/mm3 (4.0-10.0)
[2023-01-07] MEDS ORDERED: VANCOMYCIN/WATER FOR INJ (PEG) 1,000 MG/200 ML BAG IVPB SCH (06:00)
[2023-01-07 06:06] LABS: POTASSIUM 3.9 mmol/L (3.5-5.1)
[2023-01-07 06:21] LABS: BILIRUBIN,DIRECT 0.1 mg/dL (0.0-0.2)
[2023-01-07 06:22] LABS: ACTIVATED PTT 27.3 SECONDS (25.2-36.5); INR 1.72 (0.83-1.09); PROTHROMBIN TIME (PATIENT) 19.8 SEC (9.7-13.0)
[2023-01-07 06:23] LABS: BILIRUBIN,TOTAL 0.6 mg/dL (0.2-1); TOT PROT 4.9 g/dl (6.4-8.2)
[2023-01-07 06:26] LABS: ALBUMIN 1.8 g/dl (3.4-5.0)
[2023-01-07 06:31] LABS: BLOOD UREA NITROGEN 34.9 mg/dL (7-18); CALCIUM 7.7 mg/dL (8.5-10.1); MAGNESIUM 2.2 mg/dL (1.8-2.4)
[2023-01-07 06:34] LABS: CREATININE 1.2 mg/dL (0.55-1.3); PHOSPHOROUS 5.7 mg/dL (2.5-4.9)
[2023-01-07 06:36] LABS: BILIRUBIN,TOTAL 0.6 mg/dL (0.2-1); TOT PROT 4.9 g/dl (6.4-8.2)
[2023-01-07 06:41] VITALS: BP 109/67; RESP 18; TEMP 96.8
[2023-01-07 06:42] LABS: ALBUMIN 1.8 g/dl (3.4-5.0); LACTIC ACID 7.6 mmol/L (0.4-2.0)
[2023-01-07] MEDS ORDERED: MORPHINE SULFATE/0.9% NACL/PF 100 MG/100 ML BAG IVPB SCH (06:45)
[2023-01-07] MEDS: VANCOMYCIN 250 MG/5 ML ORAL SOLUTION PO SCH (06:49)
[2023-01-07 09:12] LABS: ANISOCYTOSIS 0; MACROCYTOSIS 1+; OVALOCYTE 1+
[2023-01-07] MEDS ORDERED: CHOLECALCIFEROL (VIT D3) 1,000 UNIT (25 MCG) TABLET PO SCH (10:00)
[2023-01-07] MEDS ORDERED: MUPIROCIN 2% TOPICAL OINTMENT FOR DECOLONIZATION NS SCH ×2 (10:00)
[2023-01-07] MEDS ORDERED: PANTOPRAZOLE SODIUM 40 MG VIAL IVPUSH SCH (10:00)
[2023-01-07 11:15] VITALS: PULSE 0
[2023-01-07] MEDS ORDERED: CHLORHEXIDINE GLUCONATE 4% CLEANSER FOR DECOLONIZATION TP SCH ×2 (22:00)
[2023-01-08] MEDS ORDERED: VANCOMYCIN/WATER FOR INJ (PEG) 1,000 MG/200 ML BAG IVPB SCH (06:00)
== END 2023-01-07 07:58 | disposition expired | DRG 871 ==
LOC: JER 16:52 → JERBED 23:00 → J8W 12-24 01:38 → J4S 12-24 05:03 → JICU 12-24 19:02 → J4S 01-06 12:54 → JICU 01-07 05:12
PROVIDERS: ADMIT Internal Medicine; ATTEND Internal Medicine
PROC: 5A1945Z Respiratory Ventilation, 24-96 Consecutive Hours (ICD-10-PCS; principal; 2022-12-30)
PROC: 0BH17EZ Insertion of Endotracheal Airway into Trachea, Via Natural or Artificial Opening (ICD-10-PCS; 2022-12-30)
PROC: 05HM33Z Insertion of Infusion Device into Right Internal Jugular Vein, Percutaneous Approach (ICD-10-PCS; 2022-12-30)
PROC: B543ZZA Ultrasonography of Right Jugular Veins, Guidance (ICD-10-PCS; 2022-12-30)
PROC: 5A12012 Performance of Cardiac Output, Single, Manual (ICD-10-PCS; 2023-01-07)
DX: A41.9 Sepsis, unspecified organism (principal); J69.0 Pneumonitis due to inhalation of food and vomit; J96.01 Acute respiratory failure with hypoxia; J96.02 Acute respiratory failure with hypercapnia; R65.21 Severe sepsis with septic shock; A04.72 Enterocolitis due to Clostridium difficile, not specified as recurrent; K92.1 Melena; E87.1 Hypo-osmolality and hyponatremia; K56.7 Ileus, unspecified; I95.9 Hypotension, unspecified; K74.5 Biliary cirrhosis, unspecified; I48.0 Paroxysmal atrial fibrillation; D72.829 Elevated white blood cell count, unspecified; E86.0 Dehydration; E83.39 Other disorders of phosphorus metabolism; E87.6 Hypokalemia; I12.9 Hypertensive chronic kidney disease with stage 1 through stage 4 chronic kidney disease, or unspecified chronic kidney disease; N18.2 Chronic kidney disease, stage 2 (mild)
CPT/HCPCS: 0241U-QW; 31500; 36415; 36600; 71045-TC-FY; 74018-TC-FY; 74177-TC; 76705-TC; 80048; 80053; 80076; 81003; 82272; 82308; 82438; 82533; 82550; 82553; 82710; 82803; 82962; 83036; 83605; 83735; 83986; 84100; 84302; 84484; 84999; 85025; 85027; 85610; 85730; 86140; 86850; 86900; 86901; 87040; 87045; 87046; 87081; 87086; 87205; 87324; 87449; 87899; 93005; 93010; 93306-TC; 93971-TC; 94002; 94640; 94660; 97116-GP; 97161-GP; 99285-25; Q9967